=== PATIENT | male | born 1955 | race Caucasian/White ===

== ENCOUNTER 2020-11-01 10:00 | Inpatient (IN) | payer MEDICARE, OTHER, SELFPAY ==
[2020-11-01] VITALS (13 sets, daily range): BP systolic 111–175; BP diastolic 81–121; PULSE 81–137; RESP 16–20; TEMP 36.6–37.1; O2SAT 98–100; BMI 41.1
--- NOTE | ~2020-11-01 | XR_ITS ---
EXAMINATION: XR CHEST CLINICAL INFORMATION: Palpitations. COMPARISON: None TECHNIQUE: Frontal view of the chest was obtained. FINDINGS: No significant abnormality is noted involving the heart, lungs, mediastinum, bony thorax or soft tissues. XR/XR chest 1V IMPRESSION: Unremarkable chest examination.
--- NOTE | 2020-11-01 10:28 | ECG_ITS ---
Test Reason : SOB Blood Pressure : / mmHG Vent. Rate : 133 BPM Atrial Rate : 122 BPM P-R Int : 000 ms QRS Dur : 102 ms QT Int : 322 ms P-R-T Axes : 000 -56 121 degrees QTc Int : 479 ms Atrial fibrillation with rapid ventricular response Left anterior fascicular block Cannot rule out Anterior infarct , age undetermined Abnormal ECG When compared with ECG of 31-AUG-2013 09:20, Atrial fibrillation has replaced Sinus rhythm Vent. rate has increased BY 55 BPM Minimal criteria for Anterior infarct are now Present Non-specific change in ST segment in Lateral leads Referred By: Justine Jimenez Electronically Signed By:KENAN WAGNER
--- NOTE | 2020-11-01 10:35 | ED.ARRPALP ---
HPI - Arrhythmia/Palpitations General Chief Complaint: Arrhythmia/Palpitations Stated Complaint: FEELS FAST HEAR RATE ON EXERTION,PEDAL EDEMA Time Seen by Provider: 11/01/20 10:28 Source: patient and EMS Mode of arrival: EMS Limitations: no limitations History of Present Illness HPI narrative: 65 yo male with known DM, HTN, HPL not compliant with medications 3 months of intermittent palpitations, ESQUEDA, fatigue, LE swelling was told about a month ago at urgent care he was in afib never followed up, saw Dr. Turner today and sent in for evaluation MD complaint: rapid heart beat, heart racing and palpitations Onset (ago): month(s) (3) Duration: intermittent Severity: moderate Context: occurred during rest and occurred during exertion Associated symptoms: shortness of breath and other (LE swelling, weakness, fatigue) Related Data Home Medications Medication Instructions Recorded Confirmed cholecalciferol (vitamin D3) 25 25 mcg PO DAILY 11/01/20 11/01/20 mcg (1,000 unit) capsule lactobacillus combination no.9 4 4,000 mmu cells PO DAILY 11/01/20 11/01/20 billion cell capsule zliqmyutuzho-tiidyaob-kasmtz tablet 1 tab PO DAILY 11/01/20 11/01/20 psyllium husk 3.4 gram/5.4 gram 1 tbsp PO DAILY 11/01/20 11/01/20 oral powder Allergies Allergy/AdvReac Type Severity Reaction Status Date / Time No Known Allergies Allergy Unverified 04/08/20 14:40 [facility] [place] Past Medical History Medical History (Updated 11/01/20 @ 11:25 by Justine Jimenez DO) Erectile dysfunction Gallbladder polyp Gonorrhea Hypercholesterolemia Hypertension Obesity (BMI 30-39.9) Type 2 diabetes mellitus with hyperglycemia Vitamin D deficiency Surgical History History of tonsillectomy Social History Social History (Updated 11/01/20 @ 08:57 by Yomaira Estrada CMA) Alcohol intake: current Alcohol intake frequency: holidays/special occasions only Smoking Status: Never smoker Advance Directives: Yes Advance Directives Information Provided: No Advance Directives on File: No Physical Exam Vital Signs: Vital Signs: Last Vital Signs Temp 98 F 11/01/20 10:20 Pulse 115 H 11/01/20 11:09 Resp 17 11/01/20 11:09 BP 129/101 H 11/01/20 11:09 Pulse Ox 98 11/01/20 11:09 Body Mass Index 41.1 Appearance: Alert. Oriented X3. anxious, mild acute distress. Eyes: Pupils equal, round and reactive to light. ENT: Pharynx normal. Neck: Normal inspection. Neck supple. CVS: rapid irregular heart rate and rhythm. Pulses normal. Respiratory: No respiratory distress. Breath sounds normal. Abdomen: Soft and nontender. Skin: Skin warm and dry. Normal skin color. Normal skin turgor. Extremities: pos 1 to 2+ pitting lower extremity edema. No calf ttp Neuro: Oriented X 3. No motor deficit. No sensory deficit. Course Course Course Narrative: will start on mary gtt at this time plan to admit at this time, IV lasix and drip ordered HR up in 110s MDM - Arrhythmia/Palpitations MDM Narrative Medical decision making narrative: 65 yo male with known DM, HTN, HPL not compliant with medications 3 months of intermittent palpitations, ESQUEDA, fatigue, LE swelling was told about a month ago at urgent care he was in afib never followed up, saw Dr. Turner today and sent in for evaluation at this time will need labs, EKG, CXR - anticipate CHF from untreated afib over past 3 months - IV dilt and IV lasix orderd, planned admit, no CP to suggest PE Lab Data Result diagrams: 11/01/20 10:37 11/01/20 10:37 Labs: Lab Results 11/01/20 11/01/20 11/01/20 Range/Units 10:37 10:37 10:37 WBC 7.8 (4.8-10.8) X10*3/uL RBC 5.32 (4.60-5.80) X10*6/uL Hgb 14.6 (14.0-18.0) g/dl Hct 46.0 (42-52) % MCV 86.5 (80-98) fL MCH 27.4 (27.0-33.0) pg MCHC 31.7 (31.0-36.0) g/dl RDW 16.7 H (11.0-16.0) % Plt Count 258 (160-400) X10*3/uL MPV 10.2 (9.4-12.4) fL Immature Gran % (Auto) 0.3 (0.0-0.4) % Neut % (Auto) 65.2 (45-73) % Lymph % (Auto) 25.1 (20-40) % Sequoyah % (Auto) 7.5 (2-11) % Eos % (Auto) 1.3 (0-4) % Baso % (Auto) 0.6 (0-2) % Lymph # (Auto) 2.0 (1.2-4.9) X10*3/uL Sequoyah # (Auto) 0.6 (0.1-1.2) X10*3/uL Eos # (Auto) 0.1 (0.0-0.4) X10*3/uL Baso # (Auto) 0.1 (0.0-0.2) X10*3/uL Abs Immat Gran (auto) 0.02 (0.00-0.03) X10*3/uL Absolute Neuts (auto) 5.1 (2.0-8.3) X10*3/uL Absolute Nucleated RBC 0.000 (0.0-0.012) X10*3/uL Nucleated RBC % (auto) 0.0 (0.0-0.2) /100WBC PT 13.8 H (10.8-13.0) SEC INR 1.2 H (0.9-1.1) APTT 34.0 (24.1-38.0) SEC Sodium 139 (135-145) mmol/L Potassium 4.8 (3.3-5.1) mmol/L Chloride 102 (96-108) mmol/L Carbon Dioxide 24 (22-29) mmol/L Anion Gap 18 (12-20) BUN 24 H (9-16) mg/dL Creatinine 1.59 H (0.5-1.4) mg/dL Estim Creat Clear Calc 66.5 Estimated GFR 44 Random Glucose 145 H (60-115) mg/dL Calcium 9.6 (8.4-10.2) mg/dL Magnesium 2.0 (1.6-2.6) mg/dL Total Bilirubin 1.3 H (0.0-1.0) mg/dL Direct Bilirubin 0.7 H (0.0-0.5) mg/dL AST 32 (5-37) U/L ALT 25 (0-40) U/L Alkaline Phosphatase 84 (39-117) U/L Troponin I High Sens (<3.5-35.0) ng/L B-Natriuretic Peptide (<100) pg/mL Total Protein 7.3 (6.5-8.0) g/dL Albumin 4.4 (3.5-5.0) g/dL COVID-19 ([facility]) (Negative) COVID-19 Clin Com 11/01/20 11/01/20 11/01/20 Range/Units 10:37 10:37 10:37 WBC (4.8-10.8) X10*3/uL RBC (4.60-5.80) X10*6/uL Hgb (14.0-18.0) g/dl Hct (42-52) % MCV (80-98) fL MCH (27.0-33.0) pg MCHC (31.0-36.0) g/dl RDW (11.0-16.0) % Plt Count (160-400) X10*3/uL MPV (9.4-12.4) fL Immature Gran % (Auto) (0.0-0.4) % Neut % (Auto) (45-73) % Lymph % (Auto) (20-40) % Sequoyah % (Auto) (2-11) % Eos % (Auto) (0-4) % Baso % (Auto) (0-2) % Lymph # (Auto) (1.2-4.9) X10*3/uL Sequoyah # (Auto) (0.1-1.2) X10*3/uL Eos # (Auto) (0.0-0.4) X10*3/uL Baso # (Auto) (0.0-0.2) X10*3/uL Abs Immat Gran (auto) (0.00-0.03) X10*3/uL Absolute Neuts (auto) (2.0-8.3) X10*3/uL Absolute Nucleated RBC (0.0-0.012) X10*3/uL Nucleated RBC % (auto) (0.0-0.2) /100WBC PT (10.8-13.0) SEC INR (0.9-1.1) APTT (24.1-38.0) SEC Sodium (135-145) mmol/L Potassium (3.3-5.1) mmol/L Chloride (96-108) mmol/L Carbon Dioxide (22-29) mmol/L Anion Gap (12-20) BUN (9-16) mg/dL Creatinine (0.5-1.4) mg/dL Estim Creat Clear Calc Estimated GFR Random Glucose (60-115) mg/dL Calcium (8.4-10.2) mg/dL Magnesium (1.6-2.6) mg/dL Total Bilirubin (0.0-1.0) mg/dL Direct Bilirubin (0.0-0.5) mg/dL AST (5-37) U/L ALT (0-40) U/L Alkaline Phosphatase (39-117) U/L Troponin I High Sens 47.8 H (<3.5-35.0) ng/L B-Natriuretic Peptide 1417 H (<100) pg/mL Total Protein (6.5-8.0) g/dL Albumin (3.5-5.0) g/dL COVID-19 ([facility]) Negative (Negative) COVID-19 Clin Com See Note ECG Data Attestation: I personally reviewed and interpreted this ECG as follows: ECG interpretation date: 11/01/20 ECG interpretation time: 10:45 Interpretation: Rate: 133 Rhythm: afib with RVR [place]: left Normal P waves. Normal DRU. NSIVCD poor R wave progression ST T wave : nonspecific, no KEYONNA qTC: normal prior studies: changed from prior The study has been interpreted contemporaneously by me. . Critical Care Time Critical Care Time Critical Care Time: Yes Total Critical Care Time: 30 Attestation: IV diltiazem, diltiazem drip, IV lasix I attest to this time spent taking care of the patient Discharge Plan Discharge Clinical Impression: Acute renal insufficiency Atrial fibrillation Qualifiers: Atrial fibrillation type: unspecified Qualified Code(s): I48.91 - Unspecified atrial fibrillation CHF (congestive heart failure) Qualifiers: Heart failure type: unspecified Heart failure chronicity: unspecified Qualified Code(s): I50.9 - Heart failure, unspecified Patient Disposition: Admitted As Inpatient
[2020-11-01] MEDS: dilTIAZem HCL 50 MG/10 ML VIAL 10 MG IVPUSH (10:43)
[2020-11-01 10:44] LABS: MANUAL DIFF FLAG NO
[2020-11-01] MEDS: Furosemide 40 MG/4 ML VIAL IVPUSH ×2 (10:44→18:02)
[2020-11-01 10:45] LABS: Basophils Absolute Auto 0.1 X10*3/uL (0.0-0.2); Basophils Percent Auto 0.6 % (0-2); Eosinophils Absolute Auto 0.1 X10*3/uL (0.0-0.4); Eosinophils Percent Auto 1.3 % (0-4); Hemoglobin 14.6 g/dl (14.0-18.0); Imm Gran Abs Auto 0.02 X10*3/uL (0.00-0.03); Imm Gran Pct Auto 0.3 % (0.0-0.4); Lymphocytes Percent Auto 25.1 % (20-40); Mean Corpuscular HGB Conc 31.7 g/dl (31.0-36.0); Mean Corpuscular Hemoglobin 27.4 pg (27.0-33.0); Mean Corpuscular Volume 86.5 fL (80-98); Mean Platelet Volume 10.2 fL (9.4-12.4); Monocytes Absolute Auto 0.6 X10*3/uL (0.1-1.2); Monocytes Percent Auto 7.5 % (2-11); Neutrophils Absolute Auto 5.1 X10*3/uL (2.0-8.3); Neutrophils Percent Auto 65.2 % (45-73); Platelet Count 258 X10*3/uL (160-400); Red Blood Count 5.32 X10*6/uL (4.60-5.80); Red Cell Distribution Width 16.7 % (11.0-16.0); White Blood Count 7.8 X10*3/uL (4.8-10.8)
[2020-11-01 10:53] LABS: INTERNATIONAL NORM RATIO 1.2 (0.9-1.1); Prothrombin Time 13.8 SEC (10.8-13.0)
[2020-11-01 11:03] LABS: COVID-19 Test Negative (Negative)
[2020-11-01 11:12] LABS: Alanine Aminotransferase 25 U/L (0-40); Albumin Level 4.4 g/dL (3.5-5.0); Alkaline Phosphatase 84 U/L (39-117); Anion Gap 18 (12-20); Aspartate Amino Transferase 32 U/L (5-37); Bilirubin Direct 0.7 mg/dL (0.0-0.5); Bilirubin Total 1.3 mg/dL (0.0-1.0); Blood Urea Nitrogen 24 mg/dL (9-16); Calcium 9.6 mg/dL (8.4-10.2); Carbon Dioxide 24 mmol/L (22-29); Chloride 102 mmol/L (96-108); Creatinine Clr Calc Pharmacy 66.5; Estimated Glomerular Filt Rate 44; Glucose Random 145 mg/dL (60-115); Potassium 4.8 mmol/L (3.3-5.1); Sodium 139 mmol/L (135-145); Total Protein 7.3 g/dL (6.5-8.0)
[2020-11-01 11:17] LABS: B Type Natriuretic Peptide 1417 pg/mL (<100)
[2020-11-01 11:23] LABS: Troponin-I High Sensitivity 47.8 ng/L (<3.5-35.0)
[2020-11-01 11:32] LABS: Thyroid Stimulating Hormone 1.62 uIU/mL (0.32-4.0)
[2020-11-01] MEDS: dilTIAZem HCL 125 MG in 0.9 % Sodium Chloride 100 ML 10 MG IVCONT (11:33)
--- NOTE | 2020-11-01 14:11 | PM.EVENT ---
Event Note Date of Service: 11/01/20 Event Note: Patient seen and examined independently and I was present during cristina portion of E/M service. Agree with Jeremy Roldan NP's history, physical, assessment, and plan with the following additions and/or changes. This is a 65 yo M who reports that he was seen at an urgent care clinic in the last month for progressive shortness of breath. He reports that at that time he was diagnosed with new onset A. Fib and was told to f/u with his PCP. He reports that he never did that. It is unclear if he was prescribed any medications to manage his A. Fib during that urgent care visit. He now presents to the hospital with complaints of progressive shortness of breath, initially at exertion but now even with ambulating a few steps. He denies feeling any palpitations and he denies any chest pain. He reports 2-3 pillow orthopnea and significant lower extremity swelling which he now feels has increased to be belly. He reports more than a 50-60 lb weight gain over about 1 month. Upon arrival to the ED, he was noted to be in Rapid A. Fib with signs of acute CHF as well. His work up revealed an elevated BNP, elevated HS-trop-I, A. Fib with RVR. He was given IV cardizem and IV lasix with minimal improvement in his HR or dyspnea. He was started on IV cardizem drip and admission was requested for further work up and treatment of acute CHF and A. Fib with RVR. On exam Vitals - Bp 110/120 over 80s systolic, HR - 100 to 120s on max caridzem drip @ 15, RR 18 at rest, up to 24-26 with exertion, saturation 98% on RA Gen - respiratory distress after about 5 minutes of conversation, unable to lay supine CVS - S1S2, IRR - rates 100-120s; +JVD; Bilateral 3+ pitting edema; some edema of the adominal wall ntoed as well Respiratory - Rales throughout the lungs, respiratory distress with minimal exertion Ext - bilateral edema, 3+ A/P 65 yo M with no prior history of CHF, recently diagnosed A. Fib (about 1 month ago, unclear if taking any treatment) now presenting with signs and symptoms of acute CHF + Rapid A. Fib Unclear if his CHF tachycardia mediated vs not. continue cardizem gtt, continue iv lasix 40mg bid, echocardiogram and cardiology consults, will need OAC -- started on Eilquis 5mg BID DM reports not on any meds a1c 7.1 for now, will use sliding scale and possibly start oral pending how his renal function trends Elevated SCr Range on our EMG is 1.23-1.3; now 1.59. Possibly cardiorenal
--- NOTE | 2020-11-01 14:29 | HP_ITS ---
DATE OF SERVICE: 11/01/2020 CHIEF COMPLAINT: Shortness of breath. HISTORY OF PRESENT ILLNESS: A 65-year-old man, presented to the ER with complaints of worsening shortness of breath and swelling. He reports the shortness of breath started around July. He went to an urgent care clinic approximately a month ago and was told that he had atrial fibrillation. Unfortunately, the patient did not follow up with his primary care provider after that. He reported since then he has been developing more swelling to his lower extremities and having even more difficulty especially with climbing stairs and lying flat with shortness of breath. He denied chest pain, nausea, vomiting, or diarrhea. He reported a loss of appetite more recently. In the ER, chest x-ray noted no consolidation or effusion. BNP was elevated at 1417, troponin 47.8, TSH 1.62, creatinine 1.59, slightly elevated from baseline. Vital signs; his heart rate was up to 130s. Blood pressure stable. He was started on IV diltiazem drip, given a dose of IV Lasix. He will be admitted for further management and treatment of acute atrial fibrillation with rapid ventricular response and acute congestive heart failure. PAST MEDICAL HISTORY: 1. Hypertension. 2. Diabetes mellitus. 3. Hyperlipidemia. 4. Obesity. PAST SURGICAL HISTORY: Tonsillectomy. SOCIAL HISTORY: Denies any alcohol, tobacco, or illicit drugs. ALLERGIES: NO KNOWN ALLERGIES. MEDICATIONS: 1. Cholecalciferol 25 mcg p.o. daily. 2. Lactobacillus capsules daily. 3. Multivitamin 1 tab p.o. daily. 4. Metamucil 1 tablespoon p.o. daily. REVIEW OF SYSTEMS: CONSTITUTIONAL: Denies any recent fever, chills, or decrease in appetite. RESPIRATORY: See HPI. CARDIOVASCULAR: See HPI. GASTROINTESTINAL: Denies any dysphagia, abdominal pain, nausea, vomiting, or diarrhea. GENITOURINARY: Denies any dysuria, frequency, or hematuria. MUSCULOSKELETAL: Denies any joint pain or swelling. NEUROPSYCH: Denies any weakness or seizures. All other systems are reviewed and are negative. PHYSICAL EXAMINATION: CONSTITUTIONAL: Resting in bed, appearing in no acute distress. VITAL SIGNS: 98, 105, 19, 111/89, 99% on room air. SKIN: Intact without rash or open sores. HEENT: Head is normocephalic, atraumatic. Eyes, pupils are PERRLA. Sclerae anicteric. Mouth and Throat: Mucous membranes are intact and moist. NECK: Supple. No lymphadenopathy. No JVD noted. CHEST: Rales. HEART: Irregularly irregular. ABDOMEN: Obese. Positive bowel sounds. Soft, nontender. No hepatomegaly or splenomegaly noted. NEURO: The patient is alert and oriented x3. Cranial nerves II through XII are grossly intact without focal deficits. LABORATORY DATA: WBC 7.8, hemoglobin 14.6, hematocrit 46.0, platelets 258. Sodium 139, potassium 4.8, chloride is 102, bicarb is 24, BUN is 24, creatinine is 1.59, glucose is 145. Hemoglobin A1c is 7.1, total bilirubin 1.3, direct bilirubin 0.7. Troponin 47.8. BNP 1417. TSH 1.62. ASSESSMENT AND PLAN: A 65-year-old man, who is being admitted with acute congestive heart failure secondary to atrial fibrillation with rapid ventricular response. The patient has reported symptoms worsening over the last 2 months. He reported that he went to see the urgent care clinic approximately a month ago, but did not follow up with his primary care provider. 1. Atrial fibrillation with rapid ventricular response. Likely has been ongoing for a few months with the patient's symptoms of shortness of breath. Not currently on any medication. a. Cardiology consultation. b. Echocardiogram. c. Continue Cardizem drip for now, EKG once the patient converts and then place the patient on oral calcium channel rfafaele. d. We will add anticoagulation. 2. Acute congestive heart failure. No history of heart failure in the past. No signs of hypoxia at this time. a. IV Lasix. b. Echocardiogram. c. Daily weights, intake and output. 3. Diabetes mellitus, sliding scale, ADA diet. 4. Obesity. BMI of 41.1. 5. Hypertension. Elevated blood pressure. Monitor closely. 6. Acute kidney injury, likely related to congestion. a. Diurese. 7. Deep vein thrombosis prophylaxis with Eliquis. CAREN Nolasco MD JR/LYNETTE / [id number] Atttending Attestation: Patient seen and examined independently and I was present during cristina portion of E/M service. Agree with Jeremy Roldan NP's history, physical, assessment, and plan with the following additions / changes (see separate event note for full details). Clincially volume overloaded with persisent dyspnea with min exertion. Still has JVD and bilater LE edema 3+ going up to abdominal wall. Will need IV diuretics and IV cardizem gtt for rate control. Echo + Cardiology consultation. MTDD
--- NOTE | 2020-11-01 15:32 | PC.NURSE ---
Pt resting in bed, reports slight SOB but appears comfortable and spo2 WNL. Pt requested and given fluids, vss. Pending bed assignment, pt aware and agreeable to plan of care.
[2020-11-01 15:34] LABS: Troponin-I High Sensitivity 51.6 ng/L (<3.5-35.0)
[2020-11-01] MEDS: Apixaban 5 MG TABLET PO (21:16)
[2020-11-01 21:22] LABS: Glucose, Whole Blood 135 mg/dL (60-115)
--- NOTE | 2020-11-01 21:43 | MHC.CM.PN ---
CM met with pt. A&O x3. Pt well kept. 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 Pt states he loves being a social work instructor. Pt admits to not being the most compliant medication person, but agrees he must start taking better care of himself. Pt admits to poor eating habits and loves fast food. CM mentioned that he consider one of the home meal planning companies, as they generally provide all you need for meals, proper portions and easy preparation. Pt lives alone and has no services. Pt does not have a HCP. CM explained the reasons for completing a HCP, but pt refuses at this time. Pt primary contact is his sister, Leela ([phone]). D/C plan is home without services. Transportation by family. Pt to arrange. CM will follow for d/c needs.
[2020-11-02] VITALS (12 sets, daily range): BP systolic 118–160; BP diastolic 59–102; PULSE 85–133; RESP 16–26; TEMP 36.4–37.1; O2SAT 95–98
--- NOTE | 2020-11-02 | ECG_ITS ---
Test Reason : ARRHYTHMIA Blood Pressure : / mmHG Vent. Rate : 115 BPM Atrial Rate : 061 BPM P-R Int : 000 ms QRS Dur : 104 ms QT Int : 356 ms P-R-T Axes : 000 -67 125 degrees QTc Int : 492 ms Atrial fibrillation with rapid ventricular response Left axis deviation Low voltage QRS Cannot rule out Anterior infarct (cited on or before 01-NOV-2020) Abnormal ECG When compared with ECG of 01-NOV-2020 10:16, No significant change was found Referred By: Rashmi Roldan Electronically Signed By:KENAN WAGNER
[2020-11-02] MEDS: 0.9 % Sodium Chloride Flush 3 ML SYRINGE IVFLUSH ×2 (01:07→22:56)
[2020-11-02 07:23] LABS: MANUAL DIFF FLAG NO
[2020-11-02 07:27] LABS: Basophils Percent Auto 0.7 % (0-2); Eosinophils Absolute Auto 0.2 X10*3/uL (0.0-0.4); Eosinophils Percent Auto 3.6 % (0-4); Hematocrit 40.2 % (42-52); Hemoglobin 12.9 g/dl (14.0-18.0); Lymphocytes Absolute Auto 1.5 X10*3/uL (1.2-4.9); Lymphocytes Percent Auto 27.7 % (20-40); Mean Corpuscular HGB Conc 32.1 g/dl (31.0-36.0); Mean Corpuscular Hemoglobin 27.6 pg (27.0-33.0); Mean Corpuscular Volume 86.1 fL (80-98); Mean Platelet Volume 10.4 fL (9.4-12.4); Monocytes Absolute Auto 0.5 X10*3/uL (0.1-1.2); Monocytes Percent Auto 10.1 % (2-11); Neutrophils Absolute Auto 3.1 X10*3/uL (2.0-8.3); Neutrophils Percent Auto 57.9 % (45-73); Platelet Count 198 X10*3/uL (160-400); Red Blood Count 4.67 X10*6/uL (4.60-5.80); Red Cell Distribution Width 16.7 % (11.0-16.0); White Blood Count 5.4 X10*3/uL (4.8-10.8)
[2020-11-02 07:53] LABS: Anion Gap 13 (12-20); Blood Urea Nitrogen 22 mg/dL (9-16); Carbon Dioxide 28 mmol/L (22-29); Chloride 104 mmol/L (96-108); Creatinine Clr Calc Pharmacy 78.9; Estimated Glomerular Filt Rate 53; Glucose Random 99 mg/dL (60-115); Potassium 4.7 mmol/L (3.3-5.1); Sodium 140 mmol/L (135-145)
[2020-11-02 07:57] LABS: B Type Natriuretic Peptide 1086 pg/mL (<100)
[2020-11-02 08:00] LABS: Calcium 8.8 mg/dL (8.4-10.2)
[2020-11-02 08:11] LABS: Glucose, Whole Blood 92 mg/dL (60-115)
[2020-11-02] MEDS: Apixaban 5 MG TABLET PO ×2 (09:10→22:53)
[2020-11-02] MEDS: Furosemide 40 MG/4 ML VIAL IVPUSH (09:10)
[2020-11-02] MEDS: Cholecalciferol (Vitamin D3) 25 MCG TABLET PO (09:10)
--- NOTE | 2020-11-02 09:44 | PM.CNCAR ---
History of Present Illness History of Present Illness Date of Service: 11/02/20 Consult reason: atrial fibrillation Chief complaint: CHF, afib rvr Narrative: This is a cardiology consultation regarding atrial fibrillation congestive heart failure. Patient states that he has a history of hypertension and diabetes but in the last year or so, he has really not take any medications. Over the last couple of months, he has been having increasing shortness of breath and leg swelling and he was seen by his PCP few weeks ago. At that point in time, atrial fibrillation was detected but patient did not follow-up. He was in fact advised to go to the ER but patient did not do so. But as the symptoms progressed, he is now admitted. Additionally, he has also gained almost 50 lb in weight. He has been noted to have atrial fibrillation with rapid rates. Denies any prior history of the same. No known coronary disease or myocardial infarction. Denies any history of alcohol excess. Mother has a pacemaker but denies any other cardiac issues in family. Review of Systems Review of Systems: Yes all other systems are reviewed and are negative Cardiovascular: Cardiovascular: Reports as per HPI, Reports no additional cardiovascular complaints, Reports Abdominal Distension, Denies acrocyanosis, Denies cool extremities, Denies painful fingertips, Denies chest pain, Denies chest pain at rest, Denies diaphoresis, Denies syncope, Reports pedal edema, Denies irregular heart rhythm, Denies claudication, Denies leg edema, Denies lightheadedness, Denies palpitations and Reports dyspnea Respiratory: Respiratory: Reports dyspnea Neurologic: Denies syncope Endocrine: Endocrine: Denies palpitations [facility] Past Medical History Medical History (Updated 11/02/20 @ 09:50 by Sergio Escalante MD) Erectile dysfunction Gallbladder polyp Gonorrhea Hypercholesterolemia Hypertension Obesity (BMI 30-39.9) Type 2 diabetes mellitus with hyperglycemia Vitamin D deficiency Family History Pertinent family history: Mother as pacemaker. Surgical History Surgical History History of tonsillectomy Social History Social History (Updated 11/01/20 @ 08:57 by Yomaira Estrada CMA) Alcohol intake: never Smoking Status: Unknown if ever smoked Use of substances other than those prescribed or required for medical reasons: Unknown Advance Directives: Yes Advance Directives Information Provided: No Advance Directives on File: No service: No Current occupational status: employed Meds Allergies Allergy/AdvReac Type Severity Reaction Status Date / Time No Known Allergies Allergy Unverified 04/08/20 14:40 Active Medications: Current Medications Generic Name Dose Route Start Last Admin Trade Name Freq PRN Reason Stop Dose Admin Acetaminophen 650 mg 11/01/20 13:29 Acetaminophen 325 Mg Tablet PO Q6H PRN Pain, Mild (Pain Scale 1-3) Apixaban 5 mg 11/01/20 21:00 11/02/20 09:10 Apixaban 5 Mg Tablet PO 5 mg BID RAMYA Administration Furosemide 40 mg 11/01/20 18:00 11/02/20 09:10 Furosemide 40 Mg/4 Ml Vial IVPUSH 40 mg BID@0900,1800 [facility] Administration Protocol Diltiazem HCl 125 mg/ Sodium 125 mls @ 0 mls/hr 11/01/20 11:15 11/01/20 18:02 Chloride IVCONT 0 mg/hr .Q0M RAMYA 0 mls/hr Titration Protocol Per Protocol Insulin Human Lispro 0 unit 11/01/20 16:30 11/02/20 08:25 Insulin Lispro 100 Unit/Ml 3 Ml Vial SUBCUT Not Given QIDACHS [facility] Protocol Multivitamins/Minerals 1 tab 11/02/20 09:00 11/02/20 09:10 Multivitamin With Minerals Tablet PO 1 tab DAILY RAMYA Administration Ondansetron HCl 4 mg 11/01/20 13:29 Ondansetron Hcl 4 Mg/2 Ml Vial IVPUSH Q8H PRN Nausea and Vomiting Pharmacy Consult 1 each 11/01/20 10:28 Consult Rx Perform Med Rec MISCELLANE ONCE PRN Consult order Sodium Chloride 3 ml 11/01/20 16:00 11/02/20 08:25 0.9 % Sodium Chloride Flush 3 Ml Syringe IVFLUSH Not Given QSHIFT [facility] Vitamin D 25 mcg 11/02/20 09:00 11/02/20 09:10 Cholecalciferol (Vitamin D3) 25 Mcg Tablet PO 25 mcg DAILY RAMYA Administration Home Medications Medication Instructions Recorded Confirmed Last Taken Type cholecalciferol (vitamin D3) 25 25 mcg PO DAILY 11/01/20 11/01/20 10/31/20 History mcg (1,000 unit) capsule lactobacillus combination no.9 4 4,000 mmu cells PO DAILY 11/01/20 11/01/20 10/31/20 History billion cell capsule gomomthbyutl-ggkemqta-tvwjsh tablet 1 tab PO DAILY 11/01/20 11/01/20 10/31/20 History psyllium husk 3.4 gram/5.4 gram 1 tbsp PO DAILY 11/01/20 11/01/20 10/31/20 History oral powder Physical Exam Vital Signs: Vital Signs: Last Vital Signs Temp 97.5 F 11/02/20 08:52 Pulse 95 11/02/20 04:00 Resp 26 H 11/02/20 08:52 BP 118/67 11/02/20 04:00 Pulse Ox 96 11/02/20 08:52 Body Mass Index 41.1 Const: General: cooperative, comfortable and no acute distress Orientation/consciousness: patient oriented x3 HENMT: Other: Unremarkable Neck: Neck: Yes normal visual inspection Chest: Chest palpation & inspection: normal inspection of the chest Resp: Auscultation: clear to auscultation bilaterally, no crackles and no wheezes Cardio: Jugular venous distension: no JVD Palpation: normal PMI Heart sounds: S1 normal heart sound present, S2 normal heart sound present, no gallops, no murmurs and no rubs GI: Palpation (GI): Soft to palpation and Ascites present Back/Spine/Pelvis: Other: unremarkable Skin: General skin exam: no rashes or lesions noted Neuro: General: patient oriented x3 Extrem: General: Yes edema (2+ edema) Psych: Mental Status: mental status grossly normal Results Labs and Meds Result diagrams: 11/02/20 07:05 11/02/20 07:05 Lab results: Laboratory Results - last 24 hr 11/01/20 11/01/20 11/01/20 10:37 10:37 10:37 WBC 7.8 RBC 5.32 Hgb 14.6 Hct 46.0 MCV 86.5 MCH 27.4 MCHC 31.7 RDW 16.7 H Plt Count 258 MPV 10.2 Immature Gran % (Auto) 0.3 Neut % (Auto) 65.2 Lymph % (Auto) 25.1 Benzie % (Auto) 7.5 Eos % (Auto) 1.3 Baso % (Auto) 0.6 Lymph # (Auto) 2.0 Benzie # (Auto) 0.6 Eos # (Auto) 0.1 Baso # (Auto) 0.1 Abs Immat Gran (auto) 0.02 Absolute Neuts (auto) 5.1 Absolute Nucleated RBC 0.000 Nucleated RBC % (auto) 0.0 PT 13.8 H INR 1.2 H APTT 34.0 Sodium 139 Potassium 4.8 Chloride 102 Carbon Dioxide 24 Anion Gap 18 BUN 24 H Creatinine 1.59 H Estim Creat Clear Calc 66.5 Estimated GFR 44 POC Glucose Random Glucose 145 H Calcium 9.6 Magnesium 2.0 Total Bilirubin 1.3 H Direct Bilirubin 0.7 H AST 32 ALT 25 Alkaline Phosphatase 84 Troponin I High Sens B-Natriuretic Peptide Total Protein 7.3 Albumin 4.4 TSH COVID-19 ([facility]) COVID-19 Clin Com 11/01/20 11/01/20 11/01/20 10:37 10:37 10:37 WBC RBC Hgb Hct MCV MCH MCHC RDW Plt Count MPV Immature Gran % (Auto) Neut % (Auto) Lymph % (Auto) Benzie % (Auto) Eos % (Auto) Baso % (Auto) Lymph # (Auto) Benzie # (Auto) Eos # (Auto) Baso # (Auto) Abs Immat Gran (auto) Absolute Neuts (auto) Absolute Nucleated RBC Nucleated RBC % (auto) PT INR APTT Sodium Potassium Chloride Carbon Dioxide Anion Gap BUN Creatinine Estim Creat Clear Calc Estimated GFR POC Glucose Random Glucose Calcium Magnesium Total Bilirubin Direct Bilirubin AST ALT Alkaline Phosphatase Troponin I High Sens 47.8 H B-Natriuretic Peptide 1417 H Total Protein Albumin TSH COVID-19 ([facility]) Negative COVID-19 [place] Com See Note 11/01/20 11/01/20 11/01/20 10:37 14:53 21:15 WBC RBC Hgb Hct MCV MCH MCHC RDW Plt Count MPV Immature Gran % (Auto) Neut % (Auto) Lymph % (Auto) Benzie % (Auto) Eos % (Auto) Baso % (Auto) Lymph # (Auto) Benzie # (Auto) Eos # (Auto) Baso # (Auto) Abs Immat Gran (auto) Absolute Neuts (auto) Absolute Nucleated RBC Nucleated RBC % (auto) PT INR APTT Sodium Potassium Chloride Carbon Dioxide Anion Gap BUN Creatinine Estim Creat Clear Calc Estimated GFR POC Glucose 135 H Random Glucose Calcium Magnesium Total Bilirubin Direct Bilirubin AST ALT Alkaline Phosphatase Troponin I High Sens 51.6 H B-Natriuretic Peptide Total Protein Albumin TSH 1.62 COVID-19 ([facility]) COVID-19 Clin Com 11/02/20 11/02/20 11/02/20 07:05 07:05 07:05 WBC 5.4 RBC 4.67 Hgb 12.9 L Hct 40.2 L MCV 86.1 MCH 27.6 MCHC 32.1 RDW 16.7 H Plt Count 198 MPV 10.4 Immature Gran % (Auto) 0.0 Neut % (Auto) 57.9 Lymph % (Auto) 27.7 Benzie % (Auto) 10.1 Eos % (Auto) 3.6 Baso % (Auto) 0.7 Lymph # (Auto) 1.5 Benzie # (Auto) 0.5 Eos # (Auto) 0.2 Baso # (Auto) 0.0 Abs Immat Gran (auto) 0.00 Absolute Neuts (auto) 3.1 Absolute Nucleated RBC 0.000 Nucleated RBC % (auto) 0.0 PT INR APTT Sodium 140 Potassium 4.7 Chloride 104 Carbon Dioxide 28 Anion Gap 13 BUN 22 H Creatinine 1.34 Estim Creat Clear Calc 78.9 Estimated GFR 53 POC Glucose Random Glucose 99 Calcium 8.8 D Magnesium Total Bilirubin Direct Bilirubin AST ALT Alkaline Phosphatase Troponin I High Sens B-Natriuretic Peptide 1086 H Total Protein Albumin TSH COVID-19 ([facility]) COVID-19 Clin Com 11/02/20 08:07 WBC RBC Hgb Hct MCV MCH MCHC RDW Plt Count MPV Immature Gran % (Auto) Neut % (Auto) Lymph % (Auto) Benzie % (Auto) Eos % (Auto) Baso % (Auto) Lymph # (Auto) Benzie # (Auto) Eos # (Auto) Baso # (Auto) Abs Immat Gran (auto) Absolute Neuts (auto) Absolute Nucleated RBC Nucleated RBC % (auto) PT INR APTT Sodium Potassium Chloride Carbon Dioxide Anion Gap BUN Creatinine Estim Creat Clear Calc Estimated GFR POC Glucose 92 Random Glucose Calcium Magnesium Total Bilirubin Direct Bilirubin AST ALT Alkaline Phosphatase Troponin I High Sens B-Natriuretic Peptide Total Protein Albumin TSH COVID-19 ([facility]) COVID-19 Clin Com ECG Attestation: I personally reviewed and interpreted this ECG as follows: Interpretation: Admission EKG with atrial fibrillation at 133/Min; left anterior fascicular block and cannot exclude old anterior infarct. Imaging Radiologist's impression: Impressions Chest X-Ray 11/01/20 10:29 IMPRESSION: Unremarkable chest examination. Assessment and Plan (1) Atrial fibrillation with rapid ventricular response: Status: Acute (2) Acute congestive heart failure: Qualifiers: Heart failure type: unspecified Qualified Code(s): I50.9 - Heart failure, unspecified Status: Acute Atrial fibrillation of unknown duration. Clinically, he is in congestive heart failure. Cardiac BNP is elevated at 1417. High sensitivity troponins are 47 and 51. Continue his IV diuretics. We can start him on some beta-blockers for rate control. Continue Eliquis. Echocardiogram to be completed. He may need a XIAO/cardioversion. We will follow with you.
--- NOTE | 2020-11-02 09:51 | PC.NURSE ---
pt ate breakfast, took morning meds. dr tang at bedside to consult on pt case. no insulin coverage indicated prior to breakfast, pt very pleasant, inquisitive about plan of care. awaiting inpt bed assign.
--- NOTE | 2020-11-02 10:40 | P.PNIM_ITS ---
Subjective Subjective Date of Service: 11/02/20 <Rashmi Roldan NP - Last Filed: 11/02/20 13:31> 11/02/20 <Reggie Valles MD - Last Filed: 11/02/20 16:19> Interval History: Follow up CHF and Afib RVR. Feels better with breathing and swelling going down <Rashmi Roldan NP - Last Filed: 11/02/20 13:31> Physical Exam Vital Signs: Vital Signs: Last Vital Signs Temp 97.5 F 11/02/20 08:52 Pulse 95 11/02/20 04:00 Resp 26 H 11/02/20 08:52 BP 118/67 11/02/20 04:00 Pulse Ox 96 11/02/20 08:52 Body Mass Index 41.1 <Rashmi Roldan NP - Last Filed: 11/02/20 13:31> Appearing in no acute distress lung sounds clear heart IRIR positive bowel sounds, abdomen is soft, nontender neuro patient is alert x3, no focal deficits <Rashmi Roldan NP - Last Filed: 11/02/20 13:31> Objective Data Current Medications Generic Name Dose Route Start Last Admin Trade Name Freq PRN Reason Stop Dose Admin Acetaminophen 650 mg 11/01/20 13:29 Acetaminophen 325 Mg Tablet PO Q6H PRN Pain, Mild (Pain Scale 1-3) Apixaban 5 mg 11/01/20 21:00 11/02/20 09:10 Apixaban 5 Mg Tablet PO 5 mg BID RAMYA Administration Furosemide 60 mg 11/02/20 15:00 Furosemide 40 Mg/4 Ml Vial IVPUSH TID [facility] Protocol Diltiazem HCl 125 mg/ Sodium 125 mls @ 0 mls/hr 11/01/20 11:15 11/01/20 18:02 Chloride IVCONT 0 mg/hr .Q0M RAMYA 0 mls/hr Titration Protocol Per Protocol Insulin Human Lispro 0 unit 11/01/20 16:30 11/02/20 08:25 Insulin Lispro 100 Unit/Ml 3 Ml Vial SUBCUT Not Given QIDACHS [facility] Protocol Metoprolol Succinate 50 mg 11/02/20 10:40 Metoprolol Succinate Er 50 Mg Tab.Er.24h PO DAILY [facility] Protocol Multivitamins/Minerals 1 tab 11/02/20 09:00 11/02/20 09:10 Multivitamin With Minerals Tablet PO 1 tab DAILY RAMYA Administration Ondansetron HCl 4 mg 11/01/20 13:29 Ondansetron Hcl 4 Mg/2 Ml Vial IVPUSH Q8H PRN Nausea and Vomiting Pharmacy Consult 1 each 11/01/20 10:28 Consult Rx Perform Med Rec MISCELLANE ONCE PRN Consult order Sodium Chloride 3 ml 11/01/20 16:00 11/02/20 08:25 0.9 % Sodium Chloride Flush 3 Ml Syringe IVFLUSH Not Given QSHIFT [facility] Vitamin D 25 mcg 11/02/20 09:00 11/02/20 09:10 Cholecalciferol (Vitamin D3) 25 Mcg Tablet PO 25 mcg DAILY RAMYA Administration <Rashmi Roldan NP - Last Filed: 11/02/20 13:31> Labs CBC & Chem 7: : 11/02/20 07:05 11/02/20 07:05 <Rashmi Roldan NP - Last Filed: 11/02/20 13:31> Assessment and Plan (1) Acute congestive heart failure: Status: Acute <Rashmi Roldan NP - Last Filed: 11/02/20 13:31> (2) Atrial fibrillation with rapid ventricular response: Status: Acute <Rashmi Roldan NP - Last Filed: 11/02/20 13:31> Assessment and Plan: 65-year-old man, who is being admitted with acute congestive heart failure secondary to atrial fibrillation with rapid ventricular response. The patient has reported symptoms worsening over the last 2 months. He reported that he went to see the urgent care clinic approximately a month ago, but did not follow up with his primary care provider. Atrial fibrillation with rapid ventricular response. Likely has been ongoing for a few months with the patient's symptoms of shortness of breath. Not currently on any medication. Heart rate still up -Continue cardizem drip -Cardiology following -Echocardiogram. -Add Toprol XL -Eliquis Acute congestive heart failure. No history of heart failure in the past. 50 lb weight gain. No signs of hypoxia at this time. -IV Lasix increased to 60mg TID -Echocardiogram. -Daily weights, intake and output. Diabetes mellitus. -sliding scale, ADA diet. Obesity. BMI of 41.1. Hypertension. Elevated blood pressure. Monitor closely. Acute kidney injury, likely related to congestion. -Ismael Attending: Dr. Valles <Rashmi Roldan NP - Last Filed: 11/02/20 13:31> Attending Attestation: Patient seen and examined independently and I was present during cristina portion of E/M service. Agree with Jeremy Roldan NP's history, physical, assessment, and plan. Remains in CHF with significant fluid overload, is slowly improving. HR remains problematic. Transitioned from cardizem gtt to oral metoprolol but HR bounced back up. D/w Cardiology -- will increase metoprolol to 25mg q6 hours and digoixin load, discontinue cardizem gtt. Will need XIAO cardioversion tomorrow AM. NPO after midnight. Echo results pending today. <Reggie Valles MD - Last Filed: 11/02/20 16:19>
[2020-11-02] MEDS: Metoprolol Succinate ER 50 MG TAB.ER.24H PO (11:48)
[2020-11-02] MEDS: dilTIAZem HCL 125 MG in 0.9 % Sodium Chloride 100 ML 10 MG IVCONT (11:56)
--- NOTE | 2020-11-02 13:36 | CA_ITS ---
Transthoracic Echocardiogram Patient (Last, First, Middle): Vishnu Gr A Gender: Male Date of : 1955 Age: 65 Procedure Date: 11/02/2020 Procedure Type: Transthoracic Echocardiogram Location: ER Height: 182.88 cm Weight: 137.44 kg BSA: 2.54 m2 Heart Rate: bpm BP: 118 / 67 mmHg Yoker: Referring MD: Rashmi Roldan NP Symptoms: new chf, afib rvr Study Quality: Fair ECG Rhythm: Atrial Fibrillation Conclusions: - The left ventricular systolic function is severely decreased. The visually estimated ejection fraction is between 10-15%. - Severe biatrial enlargement. - There is mild mitral valve regurgitation. - There is moderate to severe tricuspid valve regurgitation. - Moderate pulmonary hypertension is present. - There is mild dilatation of the ascending aorta measuring 4.20 cm. Findings Left Ventricle Moderately increased left ventricular cavity size. There is mildly increased left ventricular wall thickness. The left ventricular systolic function is severely decreased. The visually estimated ejection fraction is between 10 15%. There is severe global hypokinesis. Diastolic function is indeterminate on the basis of available data. Right Ventricle Normal right ventricular cavity size and systolic function. Atria Severe biatrial enlargement. Aortic Valve The aortic valve was not well visualized. There is no aortic valve stenosis. There is no aortic valve regurgitation. Mitral Valve The mitral valve appears normal. There is mild mitral valve regurgitation. There is no mitral valve stenosis. Pulmonic Valve The pulmonic valve was not well visualized. Tricuspid Valve Normal tricuspid valve structure. There is moderate to severe tricuspid valve regurgitation. Moderate pulmonary hypertension is present. Great Vessels There is mild dilatation of the ascending aorta measuring 4.20 cm. Venous The inferior vena cava is dilated and collapses less than 50% with inspiration. Pericardium/Pleural There is a small loculated pericardial effusion overlying the right atrium. Prior Study Comparison No prior study available for comparison. Measurements 2D Linear Measurements IVSd: 1.34 0.6-0.9/0.6-1.0 cm LVIDd: 6.34 3.9-5.3/4.2-5.9 cm LVIDd Index: 2.50 2.4-3.2/2.2-3.1 cm/m2 LVIDs: 5.33 2.0-3.6 cm LVPWd: 1.26 0.7-1.1 cm Ao Root: 3.50 2.1-3.5 cm LA Diam: 5.30 2.7-3.8/3.0-4.0 cm LAIDs Index: 2.09 1.5-2.3 cm/m2 LV Mass: 478.06 67-162/88-224 g LV Mass Index: 188.21 43-95/49-115 g/m2 LVOT Diam: 2.20 3.0+(-)1.3 cm 2D Systolic Function EF 4C: 29.40 >55% EF 2C: 11.80 >55% EF BiP: 21.30 >55% Mitral Valve MV Pk E: 0.84 MV Decel Time: 187.00 E'Lateral: 9.86 E'Medial: 5.42 E/E' Med: 15.50 E/E' Lat: 8.50 PHT: 55.00 MVA PHT: 4.00 Decel Whitley: 4.50 Aortic Valve AoV Pk Raulito: 1.06 AoV Mn Raulito: 0.68 AoV VTI: 0.21 AoV Pk Grad: 4.00 Aov Mn Grad: 2.00 EL Cont.VTI: 2.38 LVOT LVOT Pk Raulito: 0.76 LVOT Mn Raulito: 0.50 LVOT VTI: 0.13 LVOT Pk Grad: 2.00 LVOT Mn Grad: 1.00 LVOT Diam: 2.20 LVOT Area: 3.80 Diastolic Function MV Pk E: 0.84 E'Medial: 5.42 E/E' Med: 15.50 E' Laterial: 9.86 E/E' Lat: 8.50 Tricuspid Valve TR Pk Raulito: 2.98 TR Pk Grad: 36.00 RA Press: 15.00 RVSP: 51.00 Great Vessels Aorta Ao Root-2D: 3.50 2.0-3.7 cm Ao Asc: 4.20 2.1-3.4 cm Pulmonary Valve PV Pk Raulito: 0.65 Peak PV Grad: 2.00 Updated in Other Vendor System with Status of Final Sergio Escalante MD electronically signed on 11/02/2020 5:06:53 PM with status of Final
[2020-11-02] MEDS: Furosemide 40 MG/4 ML VIAL 60 MG IVPUSH ×2 (15:08→22:53)
[2020-11-02 15:15] LABS: Glucose, Whole Blood 139 mg/dL (60-115)
[2020-11-02] MEDS: Digoxin 0.5 MG/2 ML AMPUL 0.25 MG IVPUSH ×2 (16:38→22:54)
--- NOTE | 2020-11-02 16:40 | PC.NURSE ---
pt dc'd from [facility],meds changed. echo completed at bedside. dr mcguire at bedside to update on plan of care.
[2020-11-02 16:46] LABS: Glucose, Whole Blood 147 mg/dL (60-115)
--- NOTE | 2020-11-02 19:17 | PC.NURSE ---
called to the floor to give report,the RN Lida will call back
[2020-11-02] MEDS: Metoprolol Tartrate 25 MG TABLET PO (20:43)
--- NOTE | 2020-11-02 20:44 | PC.NURSE ---
report was given to hilario, patient was medicated witth lopressor PO and the patient is being transported up with haseeb MILLARD
[2020-11-02 21:23] LABS: Glucose, Whole Blood 133 mg/dL (60-115)
[2020-11-03] VITALS (8 sets, daily range): BP systolic 110–132; BP diastolic 77–88; PULSE 80–90; RESP 16–18; TEMP 36.3–36.7; O2SAT 95–99
--- NOTE | 2020-11-03 | ECG_ITS ---
Test Reason : AFIB Blood Pressure : / mmHG Vent. Rate : 090 BPM Atrial Rate : 086 BPM P-R Int : 000 ms QRS Dur : 104 ms QT Int : 382 ms P-R-T Axes : 000 -64 145 degrees QTc Int : 467 ms Atrial fibrillation Left anterior fascicular block Cannot rule out Anterior infarct (cited on or before 01-NOV-2020) T wave abnormality, consider lateral ischemia Abnormal ECG When compared with ECG of 02-NOV-2020 08:49, No significant changes seen Referred By: Rashmi Roldan Electronically Signed By:KENAN WAGNER
[2020-11-03 04:46] LABS: MANUAL DIFF FLAG NO
[2020-11-03 04:50] LABS: Basophils Percent Auto 0.5 % (0-2); Eosinophils Absolute Auto 0.2 X10*3/uL (0.0-0.4); Eosinophils Percent Auto 3.9 % (0-4); Hematocrit 41.1 % (42-52); Hemoglobin 13.1 g/dl (14.0-18.0); Imm Gran Abs Auto 0.01 X10*3/uL (0.00-0.03); Imm Gran Pct Auto 0.2 % (0.0-0.4); Lymphocytes Absolute Auto 1.8 X10*3/uL (1.2-4.9); Lymphocytes Percent Auto 30.5 % (20-40); Mean Corpuscular HGB Conc 31.9 g/dl (31.0-36.0); Mean Corpuscular Hemoglobin 27.6 pg (27.0-33.0); Mean Corpuscular Volume 86.5 fL (80-98); Mean Platelet Volume 10.6 fL (9.4-12.4); Monocytes Absolute Auto 0.6 X10*3/uL (0.1-1.2); Monocytes Percent Auto 10.3 % (2-11); Neutrophils Absolute Auto 3.2 X10*3/uL (2.0-8.3); Neutrophils Percent Auto 54.6 % (45-73); Platelet Count 202 X10*3/uL (160-400); Red Blood Count 4.75 X10*6/uL (4.60-5.80); Red Cell Distribution Width 16.5 % (11.0-16.0); White Blood Count 5.9 X10*3/uL (4.8-10.8)
[2020-11-03] MEDS: Digoxin 0.5 MG/2 ML AMPUL 0.25 MG IVPUSH (05:23)
[2020-11-03 05:30] LABS: Anion Gap 12 (12-20); Blood Urea Nitrogen 22 mg/dL (9-16); Calcium 9.1 mg/dL (8.4-10.2); Carbon Dioxide 31 mmol/L (22-29); Chloride 100 mmol/L (96-108); Creatinine Clr Calc Pharmacy 80.1; Estimated Glomerular Filt Rate 54; Glucose Random 107 mg/dL (60-115); Potassium 4.2 mmol/L (3.3-5.1); Sodium 139 mmol/L (135-145)
[2020-11-03 05:34] LABS: B Type Natriuretic Peptide 1494 pg/mL (<100)
[2020-11-03] MEDS: Metoprolol Tartrate 25 MG TABLET PO ×3 (06:14→18:42)
[2020-11-03 07:24] LABS: Glucose, Whole Blood 89 mg/dL (60-115)
--- NOTE | 2020-11-03 08:46 | P.CDIC_ITS ---
CDI Concurrent Query Service Date: 11/03/20 Documentation Clarification: Please clarify if you are treating a proba ble/suspected/likely or confirmed: Acute diastolic and/or systolic CHF Please specify if known Acute HFrEF Provider Response: Other Other Diagnosis: Acute HFrEF PLEASE DO NOT DELETE/MODIFY EXISTING CONTENT Additional information is needed in order to code to the highest accuracy and ap propriate Severity of Illness (SOI). Please clarify the information noted below in your progress notes and discharge summary. Risk Factors/Clinical Indicators/Treatments BNP 1086 H 1494 H IV lasix no history of CHF edema, ESQUEDA, orthopnea, a fib, obesity Echo completed CDS: Delma Riley CCS, [facility] Contact Number: [phone] Please Review the information above and exercise your independent professional judgment in responding to the query. If you concur, pleas document in the PROGRESS NOTES and DISCHARGE SUMMARY. If you do not agree with the query, please document in the query above. THIS QUERY IS PART OF THE PERMANENT MEDICAL RECORD
[2020-11-03] MEDS: Cholecalciferol (Vitamin D3) 25 MCG TABLET PO (08:59)
[2020-11-03] MEDS: Apixaban 5 MG TABLET PO ×2 (09:00→20:46)
[2020-11-03] MEDS: Furosemide 40 MG/4 ML VIAL 60 MG IVPUSH ×3 (09:00→20:46)
[2020-11-03] MEDS: 0.9 % Sodium Chloride Flush 3 ML SYRINGE IVFLUSH ×3 (09:03→20:47)
--- NOTE | 2020-11-03 09:50 | HO.PM.IMPN ---
Subjective Subjective Date of Service: 11/03/20 Interval History: seen and examined this AM breathing slowly improving as are his heart rates still reports significant swelling LE ROS General - no fevers or chills Cardiovascular - no chest pain Respiratory - +SOB, with exertion, slowly improving Abdominal- no abdominal pain, nausea, vomiting, diarrhea Physical Exam Vital Signs: Vital Signs: Last Vital Signs Temp 97.6 F 11/03/20 07:49 Pulse 85 11/03/20 07:49 Resp 18 11/03/20 07:49 BP 110/81 11/03/20 07:49 Pulse Ox 96 11/03/20 07:49 Body Mass Index 41.1 Const: Other: General - no acute distress, appears comfortable Cardiovascular - IRR, 2+ pitting edema Lungs - diminished sounds, rales improved Abdomen - soft, nontender, no rebound or guarding Extremities - no edema bilaterally Neuro - awake and alert, no focal deficits Objective Data Current Medications Generic Name Dose Route Start Last Admin Trade Name Freq PRN Reason Stop Dose Admin Acetaminophen 650 mg 11/01/20 13:29 Acetaminophen 325 Mg Tablet PO Q6H PRN Pain, Mild (Pain Scale 1-3) Apixaban 5 mg 11/01/20 21:00 11/03/20 09:00 Apixaban 5 Mg Tablet PO 5 mg BID RAMYA Administration Furosemide 60 mg 11/02/20 15:00 11/03/20 09:00 Furosemide 40 Mg/4 Ml Vial IVPUSH 60 mg TID [facility] Administration Protocol Insulin Human Lispro 0 unit 11/01/20 16:30 11/03/20 07:25 Insulin Lispro 100 Unit/Ml 3 Ml Vial SUBCUT Not Given QIDACHS COUNT INCLUDES THE [facility] Protocol Metoprolol Tartrate 25 mg 11/02/20 18:00 11/03/20 06:14 Metoprolol Tartrate 25 Mg Tablet PO 25 mg Q6H [facility] Administration Protocol Multivitamins/Minerals 1 tab 11/02/20 09:00 11/03/20 08:59 Multivitamin With Minerals Tablet PO 1 tab DAILY [facility] Administration Ondansetron HCl 4 mg 11/01/20 13:29 Ondansetron Hcl 4 Mg/2 Ml Vial IVPUSH Q8H PRN Nausea and Vomiting Pharmacy Consult 1 each 11/01/20 10:28 Consult Rx Perform Med Rec MISCELLANE ONCE PRN Consult order Sodium Chloride 3 ml 11/01/20 16:00 11/03/20 09:03 0.9 % Sodium Chloride Flush 3 Ml Syringe IVFLUSH 3 ml QSHIFT [facility] Administration Vitamin D 25 mcg 11/02/20 09:00 11/03/20 08:59 Cholecalciferol (Vitamin D3) 25 Mcg Tablet PO 25 mcg DAILY [facility] Administration Labs CBC & Chem 7: 11/03/20 04:12 11/03/20 04:12 Assessment and Plan (1) Acute congestive heart failure: Status: Acute Assessment and Plan: This is a 65-year-old male who presented to the hospital with complaints of weight gain and progressive shortness of breath. He was diagnosed with A. Fib during a urgent care visit in the past month or so, but definitive duration of A. Fib is unknown. He is also in Acute CHF. 1. Acute HFrEF newly diagnosed, possibly tachycardia induced Echo showing EF 10 to 15%, also has pulm HTN on echo respiratory status slowly improving but he still remains clinically volume overloaded continue with IV lasix at higher dose -- 60mg TID; negative 3L fluid balance documneted thus far I/O daily weights Cardiology on the case CHF education provided 2. A. Fib with RVR rates improved cardizem discontinued in light of decreased EF completed IV digoxin load continue with oral metoprolol and oral digoxin will need cardioversion once his volume status is improved continue Eliquis 5mg BID 3. DM previously was diet controlled A1C now >7 being treated with sliding scale while in the hospital will plan on d/c with metformin diabetic education provided 4. HTN metoprolol as above 5. Morbid Obesity BMI 41.1 Diet and weight loss have been encouraged 6. Mild Renal insuffiency SCr 1.59 upon admission, decreased to 1.32 today possibly cardiorenal Full Code DVT pptx, Eliquis
--- NOTE | 2020-11-03 10:21 | P.PNCA_ITS ---
Subjective Subjective Date of Service: 11/03/20 Interval history: He has been diuresing a lot with IV Lasix. Shortness of breath slightly better. Review of Systems Review of Systems Yes all other systems are reviewed and are negative Cardiovascular: Reports as per HPI, Reports no additional cardiovascular complaints, Reports Abdominal Distension, Denies acrocyanosis, Denies cool extremities, Denies painful fingertips, Denies chest pain, Denies chest pain at rest, Denies diaphoresis, Denies syncope, Reports pedal edema, Denies irregular heart rhythm, Denies claudication, Denies leg edema, Denies lightheadedness, Denies palpitations and Reports dyspnea Respiratory: Reports dyspnea Denies syncope Endocrine: Denies palpitations Physical Exam Vital Signs: Last Vital Signs Temp 97.6 F 11/03/20 07:49 Pulse 85 11/03/20 07:49 Resp 18 11/03/20 07:49 BP 110/81 11/03/20 07:49 Pulse Ox 96 11/03/20 07:49 Body Mass Index 41.1 Const General: cooperative, comfortable and no acute distress Orientation/consciousness: patient oriented x3 HENMT Other: Unremarkable Neck Neck: Yes normal visual inspection Chest Chest palpation & inspection: normal inspection of the chest Resp Auscultation: clear to auscultation bilaterally, no crackles and no wheezes Cardio Jugular venous distension: no JVD Palpation: normal PMI Heart sounds: S1 normal heart sound present, S2 normal heart sound present, no gallops, no murmurs and no rubs GI Palpation (GI): Soft to palpation and Ascites present Back/Spine/Pelvis Other: unremarkable Skin General skin exam: no rashes or lesions noted Neuro General: patient oriented x3 Extrem General: Yes edema (2+ edema) Psych Mental Status: mental status grossly normal Results Labs and Meds Result diagrams: 11/03/20 04:12 11/03/20 04:12 Lab results: Laboratory Results - last 24 hr 11/02/20 11/02/20 11/02/20 12:35 16:37 21:20 WBC RBC Hgb Hct MCV MCH MCHC RDW Plt Count MPV Immature Gran % (Auto) Neut % (Auto) Lymph % (Auto) [place] % (Auto) Eos % (Auto) Baso % (Auto) Lymph # (Auto) [place] # (Auto) Eos # (Auto) Baso # (Auto) Abs Immat Gran (auto) Absolute Neuts (auto) Absolute Nucleated RBC Nucleated RBC % (auto) Sodium Potassium Chloride Carbon Dioxide Anion Gap BUN Creatinine Estim Creat Clear Calc Estimated GFR POC Glucose 139 H 147 H 133 H Random Glucose Calcium B-Natriuretic Peptide 11/03/20 11/03/20 11/03/20 04:12 04:12 04:12 WBC 5.9 RBC 4.75 Hgb 13.1 L Hct 41.1 L MCV 86.5 MCH 27.6 MCHC 31.9 RDW 16.5 H Plt Count 202 MPV 10.6 Immature Gran % (Auto) 0.2 Neut % (Auto) 54.6 Lymph % (Auto) 30.5 [place] % (Auto) 10.3 Eos % (Auto) 3.9 Baso % (Auto) 0.5 Lymph # (Auto) 1.8 [place] # (Auto) 0.6 Eos # (Auto) 0.2 Baso # (Auto) 0.0 Abs Immat Gran (auto) 0.01 Absolute Neuts (auto) 3.2 Absolute Nucleated RBC 0.000 Nucleated RBC % (auto) 0.0 Sodium 139 Potassium 4.2 Chloride 100 Carbon Dioxide 31 H Anion Gap 12 BUN 22 H Creatinine 1.32 Estim Creat Clear Calc 80.1 Estimated GFR 54 POC Glucose Random Glucose 107 Calcium 9.1 B-Natriuretic Peptide 1494 H 11/03/20 07:10 WBC RBC Hgb Hct MCV MCH MCHC RDW Plt Count MPV Immature Gran % (Auto) Neut % (Auto) Lymph % (Auto) [place] % (Auto) Eos % (Auto) Baso % (Auto) Lymph # (Auto) [place] # (Auto) Eos # (Auto) Baso # (Auto) Abs Immat Gran (auto) Absolute Neuts (auto) Absolute Nucleated RBC Nucleated RBC % (auto) Sodium Potassium Chloride Carbon Dioxide Anion Gap BUN Creatinine Estim Creat Clear Calc Estimated GFR POC Glucose 89 Random Glucose Calcium B-Natriuretic Peptide Progress Note: A&P Assessment and plan (1) Atrial fibrillation with rapid ventricular response: Status: Acute (2) Acute systolic (congestive) heart failure: Status: Acute Assessment and Plan: Atrial fibrillation of unknown duration. Clinically, he is in congestive heart failure. Cardiac BNP is elevated at 1417. High sensitivity troponins are 47 and 51. Continue his IV diuretics. Echocardiogram with severe LV dysfunction. Continue diurese aggressively. Continue beta-blockers, digoxin, Eliquis. Will need cardioversion at some point and timing to be decided. Fall Risk Details Current Medications: Current Medications Generic Name Dose Route Start Last Admin Trade Name Freq PRN Reason Stop Dose Admin Acetaminophen 650 mg 11/01/20 13:29 Acetaminophen 325 Mg Tablet PO Q6H PRN Pain, Mild (Pain Scale 1-3) Apixaban 5 mg 11/01/20 21:00 11/03/20 09:00 Apixaban 5 Mg Tablet PO 5 mg BID RAMYA Administration Furosemide 60 mg 11/02/20 15:00 11/03/20 09:00 Furosemide 40 Mg/4 Ml Vial IVPUSH 60 mg TID RAMYA Administration Protocol Insulin Human Lispro 0 unit 11/01/20 16:30 11/03/20 07:25 Insulin Lispro 100 Unit/Ml 3 Ml Vial SUBCUT Not Given QIDACHS [facility] Protocol Metoprolol Tartrate 25 mg 11/02/20 18:00 11/03/20 06:14 Metoprolol Tartrate 25 Mg Tablet PO 25 mg Q6H RAMYA Administration Protocol Multivitamins/Minerals 1 tab 11/02/20 09:00 11/03/20 08:59 Multivitamin With Minerals Tablet PO 1 tab DAILY RAMYA Administration Ondansetron HCl 4 mg 11/01/20 13:29 Ondansetron Hcl 4 Mg/2 Ml Vial IVPUSH Q8H PRN Nausea and Vomiting Pharmacy Consult 1 each 11/01/20 10:28 Consult Rx Perform Med Rec MISCELLANE ONCE PRN Consult order Sodium Chloride 3 ml 11/01/20 16:00 11/03/20 09:03 0.9 % Sodium Chloride Flush 3 Ml Syringe IVFLUSH 3 ml QSHIFT RAMYA Administration Vitamin D 25 mcg 11/02/20 09:00 11/03/20 08:59 Cholecalciferol (Vitamin D3) 25 Mcg Tablet PO 25 mcg DAILY RAMYA Administration Time Spent With Patient Time: Total time spent is greater than 50% in coordination of care (as documented) at patient's floor/unit and/or counseling patient: Time with patient: less than 15 minutes
[2020-11-03 11:04] LABS: Glucose, Whole Blood 130 mg/dL (60-115)
--- NOTE | 2020-11-03 12:07 | MHC.CM.PN ---
per possible dc tomorrow dc [facility] no servcies
[2020-11-03 16:32] LABS: Glucose, Whole Blood 96 mg/dL (60-115)
[2020-11-03 20:29] LABS: Glucose, Whole Blood 148 mg/dL (60-115)
[2020-11-03 21:26] LABS: Anion Gap 13 (12-20); Blood Urea Nitrogen 21 mg/dL (9-16); Calcium 9.2 mg/dL (8.4-10.2); Carbon Dioxide 36 mmol/L (22-29); Chloride 94 mmol/L (96-108); Creatinine Clr Calc Pharmacy 80.7; Estimated Glomerular Filt Rate 55; Glucose Random 123 mg/dL (60-115); Magnesium 1.7 mg/dL (1.6-2.6); Potassium 3.8 mmol/L (3.3-5.1); Sodium 139 mmol/L (135-145)
--- NOTE | 2020-11-03 21:40 | P.EN_ITS ---
Event Note Date of Service: 11/03/20 Event Note: NSVT: Patient had 16 beats of V-tach. Followed by 4 beats. Tatiana ent went asymptomatic. Potassium 3.8-given 20 mEq of KCl. Magnesium 1.7-given 1 g of Mag sulfate. Will obtain echocardiogram Cardiology consult
[2020-11-03] MEDS: Potassium Chloride ER 20 MEQ TAB.ER.PRT PO (22:37)
[2020-11-03] MEDS: Magnesium Sulfate/D5W 1 GM/100 ML PIGGYBACK IV (22:37)
[2020-11-04] VITALS (11 sets, daily range): BP systolic 99–162; BP diastolic 58–100; PULSE 78–110; RESP 16–20; TEMP 35.8–36.8; O2SAT 95–99
[2020-11-04] MEDS: Metoprolol Tartrate 25 MG TABLET PO (00:14)
[2020-11-04 07:00] LABS: Anion Gap 15 (12-20); Blood Urea Nitrogen 19 mg/dL (9-16); Carbon Dioxide 33 mmol/L (22-29); Chloride 96 mmol/L (96-108); Creatinine Clr Calc Pharmacy 88.1; Estimated Glomerular Filt Rate > 60; Glucose Random 95 mg/dL (60-115); Magnesium 1.7 mg/dL (1.6-2.6); Potassium 3.7 mmol/L (3.3-5.1); Sodium 140 mmol/L (135-145)
--- NOTE | 2020-11-04 07:12 | PC.NURSE ---
P: Pt had a 16 beat Vtach I: Assessed pt, obtained VS, MD made aware. Lab to bedside to draw serum mag, and K+ E: Pts Mag 1.7, K+ 3.7. Pt given po potassium replacement and 1gm IV Mag. Cardi consult was placed. Will continue to monitor.
[2020-11-04 07:28] LABS: Glucose, Whole Blood 133 mg/dL (60-115)
[2020-11-04] MEDS: Potassium Chloride ER 20 MEQ TAB.ER.PRT 40 MEQ PO (09:32)
[2020-11-04] MEDS: Digoxin 0.25 MG TABLET PO (09:32)
[2020-11-04] MEDS: Cholecalciferol (Vitamin D3) 25 MCG TABLET PO (09:32)
[2020-11-04] MEDS: 0.9 % Sodium Chloride Flush 3 ML SYRINGE IVFLUSH ×2 (09:33→15:51)
[2020-11-04] MEDS: Furosemide 40 MG/4 ML VIAL 60 MG IVPUSH ×3 (09:33→21:11)
[2020-11-04] MEDS: Magnesium Sulfate/H2O 2 GM/50 ML PIGGYBACK IV (09:33)
[2020-11-04] MEDS: Apixaban 5 MG TABLET PO ×2 (09:33→21:11)
[2020-11-04 11:07] LABS: Glucose, Whole Blood 140 mg/dL (60-115)
--- NOTE | 2020-11-04 12:16 | P.PNCA_ITS ---
Subjective Subjective Date of Service: 11/04/20 Interval history: He states that he is doing okay. Continues diuresis. Shortness of breath is better. Review of Systems Review of Systems Yes all other systems are reviewed and are negative Cardiovascular: Reports as per HPI, Reports no additional cardiovascular complaints, Reports Abdominal Distension, Denies acrocyanosis, Denies cool extremities, Denies painful fingertips, Denies chest pain, Denies chest pain at rest, Denies diaphoresis, Denies syncope, Reports pedal edema, Denies irregular heart rhythm, Denies claudication, Denies leg edema, Denies lightheadedness, Denies palpitations and Reports dyspnea Respiratory: Reports dyspnea Denies syncope Endocrine: Denies palpitations Physical Exam Vital Signs: Last Vital Signs Temp 97.8 F 11/04/20 11:00 Pulse 95 11/04/20 11:00 Resp 18 11/04/20 11:00 BP 118/79 11/04/20 11:00 Pulse Ox 95 11/04/20 11:00 Body Mass Index 41.1 Const General: cooperative, comfortable and no acute distress Orientation/consciousness: patient oriented x3 HENMT Other: Unremarkable Neck Neck: Yes normal visual inspection Chest Chest palpation & inspection: normal inspection of the chest Resp Auscultation: clear to auscultation bilaterally, no crackles and no wheezes Cardio Jugular venous distension: no JVD Palpation: normal PMI Heart sounds: S1 normal heart sound present, S2 normal heart sound present, no gallops, no murmurs and no rubs GI Palpation (GI): Soft to palpation and Ascites present Back/Spine/Pelvis Other: unremarkable Skin General skin exam: no rashes or lesions noted Neuro General: patient oriented x3 Extrem General: Yes edema (2+ edema) Psych Mental Status: mental status grossly normal Results Labs and Meds Result diagrams: 11/03/20 04:12 11/04/20 05:52 Lab results: Laboratory Results - last 24 hr 11/03/20 11/03/20 11/03/20 16:22 20:15 20:50 Sodium 139 Potassium 3.8 Chloride 94 L Carbon Dioxide 36 H Anion Gap 13 BUN 21 H Creatinine 1.31 Estim Creat Clear Calc 80.7 Estimated GFR 55 POC Glucose 96 148 H Random Glucose 123 H Calcium 9.2 Magnesium 1.7 11/04/20 11/04/20 11/04/20 05:52 07:13 11:03 Sodium 140 Potassium 3.7 Chloride 96 Carbon Dioxide 33 H Anion Gap 15 BUN 19 H Creatinine 1.20 Estim Creat Clear Calc 88.1 Estimated GFR > 60 POC Glucose 133 H 140 H Random Glucose 95 Calcium 9.0 Magnesium 1.7 Progress Note: A&P Assessment and plan (1) Atrial fibrillation with rapid ventricular response: Status: Acute (2) Acute systolic (congestive) heart failure: Status: Acute Assessment and Plan: Atrial fibrillation of unknown duration. Clinically, he is in congestive heart failure. Cardiac BNP is elevated at 1417. High sensitivity troponins are 47 and 51. Continue his IV diuretics. Echocardiogram with severe LV dysfunction. We will plan on XIAO/cardioversion tomorrow. We will hold off on rate controlling drugs today. Fall Risk Details Current Medications: Current Medications Generic Name Dose Route Start Last Admin Trade Name Freq PRN Reason Stop Dose Admin Acetaminophen 650 mg 11/01/20 13:29 Acetaminophen 325 Mg Tablet PO Q6H PRN Pain, Mild (Pain Scale 1-3) Apixaban 5 mg 11/01/20 21:00 11/04/20 09:33 Apixaban 5 Mg Tablet PO 5 mg BID RAMYA Administration Furosemide 60 mg 11/02/20 15:00 11/04/20 09:33 Furosemide 40 Mg/4 Ml Vial IVPUSH 60 mg TID RAMYA Administration Protocol Insulin Human Lispro 0 unit 11/01/20 16:30 11/04/20 08:17 Insulin Lispro 100 Unit/Ml 3 Ml Vial SUBCUT Not Given QIDACHS [facility] Protocol Multivitamins/Minerals 1 tab 11/02/20 09:00 11/04/20 09:33 Multivitamin With Minerals Tablet PO 1 tab DAILY RAMYA Administration Ondansetron HCl 4 mg 11/01/20 13:29 Ondansetron Hcl 4 Mg/2 Ml Vial IVPUSH Q8H PRN Nausea and Vomiting Pharmacy Consult 1 each 11/01/20 10:28 Consult Rx Perform Med Rec MISCELLANE ONCE PRN Consult order Polyethylene Glycol 17 gm 11/04/20 10:00 11/04/20 10:04 Polyethylene Glycol 3350 17 Gm Powd.Pack PO Not Given DAILY RAMYA Sodium Chloride 3 ml 11/01/20 16:00 11/04/20 09:33 0.9 % Sodium Chloride Flush 3 Ml Syringe IVFLUSH 3 ml QSHIFT RAMYA Administration Vitamin D 25 mcg 11/02/20 09:00 11/04/20 09:32 Cholecalciferol (Vitamin D3) 25 Mcg Tablet PO 25 mcg DAILY RAMYA Administration Time Spent With Patient Time: Total time spent is greater than 50% in coordination of care (as documented) at patient's floor/unit and/or counseling patient: Time with patient: less than 15 minutes
--- NOTE | 2020-11-04 12:50 | P.PNIM_ITS ---
Subjective Subjective Date of Service: 11/04/20 Interval History: seen and examined this AM feeling better daily in regards to breathing remains in a. fib and fluid overloaded ROS General - no fevers or chills Cardiovascular - no chest pain Respiratory - +SOB, with exertion, slowly improving Abdominal- no abdominal pain, nausea, vomiting, diarrhea Physical Exam Vital Signs: Vital Signs: Last Vital Signs Temp 97.8 F 11/04/20 11:00 Pulse 95 11/04/20 11:00 Resp 18 11/04/20 11:00 BP 118/79 11/04/20 11:00 Pulse Ox 95 11/04/20 11:00 Body Mass Index 41.1 Const: Other: General - no acute distress, appears comfortable Cardiovascular - IRR, 2+ pitting edema Lungs - diminished sounds, rales improved Abdomen - soft, nontender, no rebound or guarding Extremities - no edema bilaterally Neuro - awake and alert, no focal deficits Objective Data Current Medications Generic Name Dose Route Start Last Admin Trade Name Freq PRN Reason Stop Dose Admin Acetaminophen 650 mg 11/01/20 13:29 Acetaminophen 325 Mg Tablet PO Q6H PRN Pain, Mild (Pain Scale 1-3) Apixaban 5 mg 11/01/20 21:00 11/04/20 09:33 Apixaban 5 Mg Tablet PO 5 mg BID RAYMA Administration Furosemide 60 mg 11/02/20 15:00 11/04/20 09:33 Furosemide 40 Mg/4 Ml Vial IVPUSH 60 mg TID RAMYA Administration Protocol Insulin Human Lispro 0 unit 11/01/20 16:30 11/04/20 12:18 Insulin Lispro 100 Unit/Ml 3 Ml Vial SUBCUT Not Given QIDACHS [facility] Protocol Multivitamins/Minerals 1 tab 11/02/20 09:00 11/04/20 09:33 Multivitamin With Minerals Tablet PO 1 tab DAILY RAMYA Administration Ondansetron HCl 4 mg 11/01/20 13:29 Ondansetron Hcl 4 Mg/2 Ml Vial IVPUSH Q8H PRN Nausea and Vomiting Pharmacy Consult 1 each 11/01/20 10:28 Consult Rx Perform Med Rec MISCELLANE ONCE PRN Consult order Polyethylene Glycol 17 gm 11/04/20 10:00 11/04/20 10:04 Polyethylene Glycol 3350 17 Gm Powd.Pack PO Not Given DAILY [facility] Sodium Chloride 3 ml 11/01/20 16:00 11/04/20 09:33 0.9 % Sodium Chloride Flush 3 Ml Syringe IVFLUSH 3 ml QSHIFT RAMYA Administration Vitamin D 25 mcg 11/02/20 09:00 11/04/20 09:32 Cholecalciferol (Vitamin D3) 25 Mcg Tablet PO 25 mcg DAILY RAMYA Administration Labs CBC & Chem 7: 11/03/20 04:12 11/04/20 05:52 Assessment and Plan (1) Acute congestive heart failure: Status: Acute Assessment and Plan: This is a 65-year-old male who presented to the hospital with complaints of weight gain and progressive shortness of breath. He was diagnosed with A. Fib during a urgent care visit in the past month or so, but definitive duration of A. Fib is unknown. He is also in Acute CHF. 1. Acute HFrEF newly diagnosed, possibly tachycardia induced Echo showing EF 10 to 15%, also has pulm HTN on echo respiratory status slowly improving but he still remains clinically volume overloaded continue IV diuretics I/O daily weights Cardiology on the case CHF education provided 2. A. Fib with RVR rates improved, had some slow a. fib this AM hold metoprolol + dig today plan for XIAO cardioversion tomorrow, NPO after midnight continue Addy had ? run of NSVT over night -- mag and K being repleted 3. DM previously was diet controlled A1C now >7 being treated with sliding scale while in the hospital will plan on d/c with metformin diabetic education provided 4. HTN metoprolol as above 5. Morbid Obesity BMI 41.1 Diet and weight loss have been encouraged 6. Mild Renal insuffiency SCr 1.59 upon admission, decreased to 1.2 today possibly cardiorenal Full Code DVT pptx, Eliqushaheed
[2020-11-04 16:32] LABS: Glucose, Whole Blood 104 mg/dL (60-115)
[2020-11-04 20:21] LABS: Glucose, Whole Blood 113 mg/dL (60-115)
[2020-11-05] VITALS (15 sets, daily range): BP systolic 102–149; BP diastolic 65–104; PULSE 79–128; RESP 14–20; TEMP 36.1–37.3; O2SAT 94–99; BMI 41.1
--- NOTE | 2020-11-05 | ECG_ITS ---
Test Reason : POST CRDIOVERSION Blood Pressure : / mmHG Vent. Rate : 088 BPM Atrial Rate : 088 BPM P-R Int : 216 ms QRS Dur : 112 ms QT Int : 382 ms P-R-T Axes : 000 -59 147 degrees QTc Int : 462 ms Sinus rhythm with 1st degree A-V block with Premature atrial complexes Left anterior fascicular block T wave abnormality, consider lateral ischemia Cannot rule out anterior infarct Prolonged QT Abnormal ECG When compared with ECG of 03-NOV-2020 13:41, Sinus rhythm has replaced Atrial fibrillation Referred By: Sergio Escalante Electronically Signed By:Miko Dhillon
[2020-11-05] MEDS: 0.9 % Sodium Chloride Flush 3 ML SYRINGE IVFLUSH ×4 (00:45→20:58)
[2020-11-05 07:29] LABS: Glucose, Whole Blood 94 mg/dL (60-115)
[2020-11-05] MEDS: Apixaban 5 MG TABLET PO ×2 (08:51→20:57)
[2020-11-05] MEDS: Cholecalciferol (Vitamin D3) 25 MCG TABLET PO (08:51)
[2020-11-05] MEDS: Furosemide 40 MG/4 ML VIAL 60 MG IVPUSH ×3 (08:51→20:57)
[2020-11-05] MEDS: polyethylene glycoL 3350 17 GM POWD.PACK PO (08:52)
[2020-11-05 08:53] LABS: Anion Gap 16 (12-20); Blood Urea Nitrogen 15 mg/dL (9-16); Calcium 9.8 mg/dL (8.4-10.2); Carbon Dioxide 39 mmol/L (22-29); Chloride 93 mmol/L (96-108); Creatinine Clr Calc Pharmacy 82.6; Estimated Glomerular Filt Rate 56; Glucose Random 103 mg/dL (60-115); Potassium 4.3 mmol/L (3.3-5.1); Sodium 144 mmol/L (135-145)
--- NOTE | 2020-11-05 10:13 | P.PNIM_ITS ---
Subjective Subjective Date of Service: 11/05/20 Interval History: seen and examined this AM continues to improve from a respiratory stand point awaiting cardioversion today ROS General - no fevers or chills Cardiovascular - no chest pain Respiratory - ESQUEDA slowly improves Abdominal- no abdominal pain, nausea, vomiting, diarrhea Physical Exam Vital Signs: Vital Signs: Last Vital Signs Temp 97.9 F 11/05/20 07:43 Pulse 99 11/05/20 07:43 Resp 20 11/05/20 07:43 BP 149/91 H 11/05/20 07:43 Pulse Ox 99 11/05/20 07:43 Body Mass Index 41.1 Const: Other: General - no acute distress, appears comfortable Cardiovascular - IRR, 2+ pitting edema, now below the knee primarily Lungs - diminished sounds, rales improved Abdomen - soft, nontender, no rebound or guarding Extremities - no edema bilaterally Neuro - awake and alert, no focal deficits Objective Data Current Medications Generic Name Dose Route Start Last Admin Trade Name Freq PRN Reason Stop Dose Admin Acetaminophen 650 mg 11/01/20 13:29 Acetaminophen 325 Mg Tablet PO Q6H PRN Pain, Mild (Pain Scale 1-3) Apixaban 5 mg 11/01/20 21:00 11/05/20 08:51 Apixaban 5 Mg Tablet PO 5 mg BID RAMYA Administration Furosemide 60 mg 11/02/20 15:00 11/05/20 08:51 Furosemide 40 Mg/4 Ml Vial IVPUSH 60 mg TID RAMYA Administration Protocol Insulin Human Lispro 0 unit 11/01/20 16:30 11/05/20 08:57 Insulin Lispro 100 Unit/Ml 3 Ml Vial SUBCUT Not Given QIDACHS [facility] Protocol Multivitamins/Minerals 1 tab 11/02/20 09:00 11/05/20 08:50 Multivitamin With Minerals Tablet PO 1 tab DAILY RAMYA Administration Ondansetron HCl 4 mg 11/01/20 13:29 Ondansetron Hcl 4 Mg/2 Ml Vial IVPUSH Q8H PRN Nausea and Vomiting Pharmacy Consult 1 each 11/01/20 10:28 Consult Rx Perform Med Rec MISCELLANE ONCE PRN Consult order Polyethylene Glycol 17 gm 11/04/20 10:00 11/05/20 08:52 Polyethylene Glycol 3350 17 Gm Powd.Pack PO 17 gm DAILY RAMYA Administration Sodium Chloride 3 ml 11/01/20 16:00 11/05/20 08:54 0.9 % Sodium Chloride Flush 3 Ml Syringe IVFLUSH 3 ml QSHIFT RAMYA Administration Vitamin D 25 mcg 11/02/20 09:00 11/05/20 08:51 Cholecalciferol (Vitamin D3) 25 Mcg Tablet PO 25 mcg DAILY RAMYA Administration Labs CBC & Chem 7: 11/03/20 04:12 11/05/20 07:57 Assessment and Plan (1) Acute congestive heart failure: Status: Acute Assessment and Plan: This is a 65-year-old male who presented to the hospital with complaints of weight gain and progressive shortness of breath. He was diagnosed with A. Fib during a urgent care visit in the past month or so, but definitive duration of A. Fib is unknown. He is also in Acute CHF. 1. Acute HFrEF newly diagnosed, possibly tachycardia induced Echo showing EF 10 to 15%, also has pulm HTN on echo slowly improving, continue IV diuretics - I/O daily weights Cardiology on the case CHF education provided 2. A. Fib with RVR overall rates improved rates control drugs on hold per cardiology recs plan for XIAO cardioversion today continue Eliquis 3. DM previously was diet controlled A1C now >7 being treated with sliding scale while in the hospital will plan on d/c with metformin diabetic education provided 4. HTN improved on metoprolol 5. Morbid Obesity BMI 41.1 Diet and weight loss have been encouraged 6. Mild Renal insuffiency SCr 1.59 upon admission, decreased to 1.28 today possibly cardiorenal Full Code DVT pptx, Eliquis dispo: anticipate home in the next 24-48 hours if stable post cardioversion
[2020-11-05] MEDS: Lactated Ringers 1,000 ML 50 ML IV (10:35)
[2020-11-05 10:36] LABS: Magnesium 1.9 mg/dL (1.6-2.6)
[2020-11-05 10:38] LABS: Glucose, Whole Blood 124 mg/dL (60-115)
--- NOTE | 2020-11-05 11:02 | P.CONAN_ITS ---
HPI - Anesthesia Eval Consult details Narrative: 65 M CHF, PAH p/f XIAO/cardioversion for afib [facility] Active Problems Active Problems: All Active Problems (Updated 11/03/20 @ 10:22 by Sergio Escalante MD) Acute systolic (congestive) heart failure (Acute) Acute congestive heart failure (Acute) Atrial fibrillation with rapid ventricular response (Acute) Acute renal insufficiency (Acute) CHF (congestive heart failure) (Acute) Atrial fibrillation (Acute) Hypercholesterolemia (Acute) Vitamin D deficiency (Acute) Type 2 diabetes mellitus with hyperglycemia (Acute) Obesity (BMI 30-39.9) (Acute) Hypertension (Acute) Past Medical History Medical History Erectile dysfunction Gallbladder polyp Gonorrhea Hypercholesterolemia Hypertension Obesity (BMI 30-39.9) Type 2 diabetes mellitus with hyperglycemia Vitamin D deficiency Surgical History Surgical History History of tonsillectomy Social History Social History Household Members: None Housing: House Alcohol intake: never Smoking Status: Never smoker Advance Directives Date on File: 11/02/20 service: No Current occupational status: employed Meds Allergies Allergy/AdvReac Type Severity Reaction Status Date / Time No Known Allergies Allergy Unverified 04/08/20 14:40 Active Medications: Current Medications Generic Name Dose Route Start Last Admin Trade Name Freq PRN Reason Stop Dose Admin Acetaminophen 650 mg 11/01/20 13:29 Acetaminophen 325 Mg Tablet PO Q6H PRN Pain, Mild (Pain Scale 1-3) Apixaban 5 mg 11/01/20 21:00 11/05/20 08:51 Apixaban 5 Mg Tablet PO 5 mg BID RAMYA Administration Furosemide 60 mg 11/02/20 15:00 11/05/20 08:51 Furosemide 40 Mg/4 Ml Vial IVPUSH 60 mg TID RAMYA Administration Protocol Insulin Human Lispro 0 unit 11/01/20 16:30 11/05/20 08:57 Insulin Lispro 100 Unit/Ml 3 Ml Vial SUBCUT Not Given QIDACHS RAMYA Protocol Multivitamins/Minerals 1 tab 11/02/20 09:00 11/05/20 08:50 Multivitamin With Minerals Tablet PO 1 tab DAILY RAMYA Administration Ondansetron HCl 4 mg 11/01/20 13:29 Ondansetron Hcl 4 Mg/2 Ml Vial IVPUSH Q8H PRN Nausea and Vomiting Pharmacy Consult 1 each 11/01/20 10:28 Consult Rx Perform Med Rec MISCELLANE ONCE PRN Consult order Polyethylene Glycol 17 gm 11/04/20 10:00 11/05/20 08:52 Polyethylene Glycol 3350 17 Gm Powd.Pack PO 17 gm DAILY RAMYA Administration Sodium Chloride 3 ml 11/01/20 16:00 11/05/20 08:54 0.9 % Sodium Chloride Flush 3 Ml Syringe IVFLUSH 3 ml QSHIFT RAMYA Administration Vitamin D 25 mcg 11/02/20 09:00 11/05/20 08:51 Cholecalciferol (Vitamin D3) 25 Mcg Tablet PO 25 mcg DAILY RAMYA Administration Home Medications Medication Instructions Recorded Confirmed Last Taken Type cholecalciferol (vitamin D3) 25 25 mcg PO DAILY 11/01/20 11/01/20 10/31/20 History mcg (1,000 unit) capsule lactobacillus combination no.9 4 4,000 mmu cells PO DAILY 11/01/20 11/01/20 10/31/20 History billion cell capsule fsgqeizizynj-axtjpjpa-qlxcuj tablet 1 tab PO DAILY 11/01/20 11/01/20 10/31/20 History psyllium husk 3.4 gram/5.4 gram 1 tbsp PO DAILY 11/01/20 11/01/20 10/31/20 History oral powder Exam Exam Date and Time: November 05, 2020 1102 Height,Weight and Vital Signs: Height 6 ft Weight 137.438 kg Last Vital Signs Temp 98.3 F 11/05/20 10:30 Pulse 128 H 11/05/20 10:30 Resp 18 11/05/20 10:30 BP 143/104 H 11/05/20 10:30 Pulse Ox 99 11/05/20 10:30 Pertinent Lab Results Pertinent Lab Results: Laboratory Tests 11/01/20 11/01/20 11/01/20 10:37 10:37 10:37 WBC 7.8 RBC 5.32 Hgb 14.6 Hct 46.0 MCV 86.5 MCH 27.4 MCHC 31.7 RDW 16.7 H Plt Count 258 MPV 10.2 Immature Gran % (Auto) 0.3 Neut % (Auto) 65.2 Lymph % (Auto) 25.1 Metcalfe % (Auto) 7.5 Eos % (Auto) 1.3 Baso % (Auto) 0.6 Lymph # (Auto) 2.0 Metcalfe # (Auto) 0.6 Eos # (Auto) 0.1 Baso # (Auto) 0.1 Abs Immat Gran (auto) 0.02 Absolute Neuts (auto) 5.1 Absolute Nucleated RBC 0.000 Nucleated RBC % (auto) 0.0 PT 13.8 H INR 1.2 H APTT 34.0 Sodium 139 Potassium 4.8 Chloride 102 Carbon Dioxide 24 Anion Gap 18 BUN 24 H Creatinine 1.59 H Estim Creat Clear Calc 66.5 Estimated GFR 44 POC Glucose Random Glucose 145 H Calcium 9.6 Magnesium 2.0 Total Bilirubin 1.3 H Direct Bilirubin 0.7 H AST 32 ALT 25 Alkaline Phosphatase 84 Troponin I High Sens B-Natriuretic Peptide Total Protein 7.3 Albumin 4.4 TSH COVID-19 ([facility]) COVID-[facility] 11/01/20 11/01/20 11/01/20 10:37 10:37 10:37 WBC RBC Hgb Hct MCV MCH MCHC RDW Plt Count MPV Immature Gran % (Auto) Neut % (Auto) Lymph % (Auto) Metcalfe % (Auto) Eos % (Auto) Baso % (Auto) Lymph # (Auto) Metcalfe # (Auto) Eos # (Auto) Baso # (Auto) Abs Immat Gran (auto) Absolute Neuts (auto) Absolute Nucleated RBC Nucleated RBC % (auto) PT INR APTT Sodium Potassium Chloride Carbon Dioxide Anion Gap BUN Creatinine Estim Creat Clear Calc Estimated GFR POC Glucose Random Glucose Calcium Magnesium Total Bilirubin Direct Bilirubin AST ALT Alkaline Phosphatase Troponin I High Sens 47.8 H B-Natriuretic Peptide 1417 H Total Protein Albumin TSH COVID-19 ([facility]) Negative COVID-[facility] Com See Note 11/01/20 11/01/20 11/01/20 10:37 14:53 21:15 WBC RBC Hgb Hct MCV MCH MCHC RDW Plt Count MPV Immature Gran % (Auto) Neut % (Auto) Lymph % (Auto) Metcalfe % (Auto) Eos % (Auto) Baso % (Auto) Lymph # (Auto) Metcalfe # (Auto) Eos # (Auto) Baso # (Auto) Abs Immat Gran (auto) Absolute Neuts (auto) Absolute Nucleated RBC Nucleated RBC % (auto) PT INR APTT Sodium Potassium Chloride Carbon Dioxide Anion Gap BUN Creatinine Estim Creat Clear Calc Estimated GFR POC Glucose 135 H Random Glucose Calcium Magnesium Total Bilirubin Direct Bilirubin AST ALT Alkaline Phosphatase Troponin I High Sens 51.6 H B-Natriuretic Peptide Total Protein Albumin TSH 1.62 COVID-19 ([facility]) COVID-19 Clin Com 11/02/20 11/02/20 11/02/20 07:05 07:05 07:05 WBC 5.4 RBC 4.67 Hgb 12.9 L Hct 40.2 L MCV 86.1 MCH 27.6 MCHC 32.1 RDW 16.7 H Plt Count 198 MPV 10.4 Immature Gran % (Auto) 0.0 Neut % (Auto) 57.9 Lymph % (Auto) 27.7 Metcalfe % (Auto) 10.1 Eos % (Auto) 3.6 Baso % (Auto) 0.7 Lymph # (Auto) 1.5 Metcalfe # (Auto) 0.5 Eos # (Auto) 0.2 Baso # (Auto) 0.0 Abs Immat Gran (auto) 0.00 Absolute Neuts (auto) 3.1 Absolute Nucleated RBC 0.000 Nucleated RBC % (auto) 0.0 PT INR APTT Sodium 140 Potassium 4.7 Chloride 104 Carbon Dioxide 28 Anion Gap 13 BUN 22 H Creatinine 1.34 Estim Creat Clear Calc 78.9 Estimated GFR 53 POC Glucose Random Glucose 99 Calcium 8.8 D Magnesium Total Bilirubin Direct Bilirubin AST ALT Alkaline Phosphatase Troponin I High Sens B-Natriuretic Peptide 1086 H Total Protein Albumin TSH COVID-19 ([facility]) COVID-19 Clin [facility] 11/02/20 11/02/20 11/02/20 08:07 12:35 16:37 WBC RBC Hgb Hct MCV MCH MCHC RDW Plt Count MPV Immature Gran % (Auto) Neut % (Auto) Lymph % (Auto) Metcalfe % (Auto) Eos % (Auto) Baso % (Auto) Lymph # (Auto) Metcalfe # (Auto) Eos # (Auto) Baso # (Auto) Abs Immat Gran (auto) Absolute Neuts (auto) Absolute Nucleated RBC Nucleated RBC % (auto) PT INR APTT Sodium Potassium Chloride Carbon Dioxide Anion Gap BUN Creatinine Estim Creat Clear Calc Estimated GFR POC Glucose 92 139 H 147 H Random Glucose Calcium Magnesium Total Bilirubin Direct Bilirubin AST ALT Alkaline Phosphatase Troponin I High Sens B-Natriuretic Peptide Total Protein Albumin TSH COVID-19 ([facility]) COVID-19 [facility] 11/02/20 11/03/20 11/03/20 21:20 04:12 04:12 WBC 5.9 RBC 4.75 Hgb 13.1 L Hct 41.1 L MCV 86.5 MCH 27.6 MCHC 31.9 RDW 16.5 H Plt Count 202 MPV 10.6 Immature Gran % (Auto) 0.2 Neut % (Auto) 54.6 Lymph % (Auto) 30.5 Metcalfe % (Auto) 10.3 Eos % (Auto) 3.9 Baso % (Auto) 0.5 Lymph # (Auto) 1.8 Metcalfe # (Auto) 0.6 Eos # (Auto) 0.2 Baso # (Auto) 0.0 Abs Immat Gran (auto) 0.01 Absolute Neuts (auto) 3.2 Absolute Nucleated RBC 0.000 Nucleated RBC % (auto) 0.0 PT INR APTT Sodium 139 Potassium 4.2 Chloride 100 Carbon Dioxide 31 H Anion Gap 12 BUN 22 H Creatinine 1.32 Estim Creat Clear Calc 80.1 Estimated GFR 54 POC Glucose 133 H Random Glucose 107 Calcium 9.1 Magnesium Total Bilirubin Direct Bilirubin AST ALT Alkaline Phosphatase Troponin I High Sens B-Natriuretic Peptide Total Protein Albumin TSH COVID-19 ([facility]) COVID-19 [facility] 11/03/20 11/03/20 11/03/20 04:12 07:10 10:58 WBC RBC Hgb Hct MCV MCH MCHC RDW Plt Count MPV Immature Gran % (Auto) Neut % (Auto) Lymph % (Auto) Metcalfe % (Auto) Eos % (Auto) Baso % (Auto) Lymph # (Auto) Metcalfe # (Auto) Eos # (Auto) Baso # (Auto) Abs Immat Gran (auto) Absolute Neuts (auto) Absolute Nucleated RBC Nucleated RBC % (auto) PT INR APTT Sodium Potassium Chloride Carbon Dioxide Anion Gap BUN Creatinine Estim Creat Clear Calc Estimated GFR POC Glucose 89 130 H Random Glucose Calcium Magnesium Total Bilirubin Direct Bilirubin AST ALT Alkaline Phosphatase Troponin I High Sens B-Natriuretic Peptide 1494 H Total Protein Albumin TSH COVID-19 ([facility]) COVID-19 [facility] 11/03/20 11/03/20 11/03/20 16:22 20:15 20:50 WBC RBC Hgb Hct MCV MCH MCHC RDW Plt Count MPV Immature Gran % (Auto) Neut % (Auto) Lymph % (Auto) Metcalfe % (Auto) Eos % (Auto) Baso % (Auto) Lymph # (Auto) Metcalfe # (Auto) Eos # (Auto) Baso # (Auto) Abs Immat Gran (auto) Absolute Neuts (auto) Absolute Nucleated RBC Nucleated RBC % (auto) PT INR APTT Sodium 139 Potassium 3.8 Chloride 94 L Carbon Dioxide 36 H Anion Gap 13 BUN 21 H Creatinine 1.31 Estim Creat Clear Calc 80.7 Estimated GFR 55 POC Glucose 96 148 H Random Glucose 123 H Calcium 9.2 Magnesium 1.7 Total Bilirubin Direct Bilirubin AST ALT Alkaline Phosphatase Troponin I High Sens B-Natriuretic Peptide Total Protein Albumin TSH COVID-19 ([facility]) COVID-19 [facility] 11/04/20 11/04/20 11/04/20 05:52 07:13 11:03 WBC RBC Hgb Hct MCV MCH MCHC RDW Plt Count MPV Immature Gran % (Auto) Neut % (Auto) Lymph % (Auto) Metcalfe % (Auto) Eos % (Auto) Baso % (Auto) Lymph # (Auto) Metcalfe # (Auto) Eos # (Auto) Baso # (Auto) Abs Immat Gran (auto) Absolute Neuts (auto) Absolute Nucleated RBC Nucleated RBC % (auto) PT INR APTT Sodium 140 Potassium 3.7 Chloride 96 Carbon Dioxide 33 H Anion Gap 15 BUN 19 H Creatinine 1.20 Estim Creat Clear Calc 88.1 Estimated GFR > 60 POC Glucose 133 H 140 H Random Glucose 95 Calcium 9.0 Magnesium 1.7 Total Bilirubin Direct Bilirubin AST ALT Alkaline Phosphatase Troponin I High Sens B-Natriuretic Peptide Total Protein Albumin TSH COVID-19 ([facility]) COVID-[facility] 11/04/20 11/04/20 11/05/20 16:28 20:11 07:21 WBC RBC Hgb Hct MCV MCH MCHC RDW Plt Count MPV Immature Gran % (Auto) Neut % (Auto) Lymph % (Auto) Metcalfe % (Auto) Eos % (Auto) Baso % (Auto) Lymph # (Auto) Metcalfe # (Auto) Eos # (Auto) Baso # (Auto) Abs Immat Gran (auto) Absolute Neuts (auto) Absolute Nucleated RBC Nucleated RBC % (auto) PT INR APTT Sodium Potassium Chloride Carbon Dioxide Anion Gap BUN Creatinine Estim Creat Clear Calc Estimated GFR POC Glucose 104 113 94 Random Glucose Calcium Magnesium Total Bilirubin Direct Bilirubin AST ALT Alkaline Phosphatase Troponin I High Sens B-Natriuretic Peptide Total Protein Albumin TSH COVID-19 ([facility]) COVID-19 Clin Com 11/05/20 11/05/20 07:57 10:34 WBC RBC Hgb Hct MCV MCH MCHC RDW Plt Count MPV Immature Gran % (Auto) Neut % (Auto) Lymph % (Auto) Metcalfe % (Auto) Eos % (Auto) Baso % (Auto) Lymph # (Auto) Metcalfe # (Auto) Eos # (Auto) Baso # (Auto) Abs Immat Gran (auto) Absolute Neuts (auto) Absolute Nucleated RBC Nucleated RBC % (auto) PT INR APTT Sodium 144 Potassium 4.3 Chloride 93 L Carbon Dioxide 39 H Anion Gap 16 BUN 15 Creatinine 1.28 Estim Creat Clear Calc 82.6 Estimated GFR 56 POC Glucose 124 H Random Glucose 103 Calcium 9.8 D Magnesium 1.9 Total Bilirubin Direct Bilirubin AST ALT Alkaline Phosphatase Troponin I High Sens B-Natriuretic Peptide Total Protein Albumin TSH COVID-19 ([facility]) COVID-19 Clin Com Airway Mallampati Class: III TM Dist: >3cm Neck ROM: Full Partial: Lower Loose/Missing/Broken Teeth: Yes (Poor dentition) Heart: Afib Lungs: NL Assessment and Plan Assessment Anesthesia Assessment: Anesthesia Plan Discussed and Chart Reviewed Final Anesthetic Review NPO: Yes ASA Class: IV Final Preanesthetic Review: No Changes in Pt Med Stat, Meds/Allgs Chart Reviewed, Consent Obtained/Reviewed and Anes Risks/Benef Reviewed Patient Risk: High Procedure Risk: Low Anesthetic Plan Anesthetic Plan: MAC: Disposition: Standard PACU
--- NOTE | 2020-11-05 11:08 | PC.NURSE ---
pt voided 400ml clear yellow urine in urinal
--- NOTE | 2020-11-05 11:29 | MHC.CM.PN ---
pt to be dcd today after cardio version.. dc plan [facility] no services
--- NOTE | 2020-11-05 11:30 | CA_ITS ---
Transesophageal Echocardiogram Patient (Last, First, Middle): Vishnu Gr A Gender: Male Date of : 1955 Age: 65 Procedure Date: 11/05/2020 Procedure Type: Transesophageal Echocardiogram Location: [facility] [place] Height: 185.42 cm Weight: kg Manager Dish: KATLYN Referring MD: Sergio Escalante MD Parts Clerk Plant Maintenance: Sergio Escalante MD Symptoms: Atrial fibrillation Conclusion: ??? After informed consent was obtained, patient was taken to the operating room. He was positioned appropriately. Once under anesthesia, the XIAO probe was placed without difficulty. The usual 2D, spectral Doppler as well as color Doppler images were obtained. Patient tolerated the procedure without any complications. ??? There is no evidence of a thrombus in the left atrial appendage. Findings Left Ventricle The left ventricular systolic function is severely decreased. The visually estimated ejection fraction is between 10-15%. Right Ventricle Normal right ventricular cavity size and systolic function. Atria Severe biatrial enlargement. There is no evidence of a thrombus in the left atrial appendage. There is no evidence of a patent foramen ovale. Left atrial appendage visualization was somewhat difficult but we were able to confirm that there were no clots. Acceptable velocities at the mouth of the appendage. Aortic Valve There is a normal trileaflet aortic valve. There is no aortic valve stenosis. There is no aortic valve regurgitation. Mitral Valve The mitral valve appears normal. There is mild to moderate mitral valve regurgitation. There is no mitral valve stenosis. Pulmonic Valve The pulmonic valve was not well visualized. Tricuspid Valve There is mild to moderate tricuspid valve regurgitation. Great Vessels Visualized portions of arch and descending thoracic aorta with only mild atherosclerotic plaque. Pericardium/Pleural There is a trivial pericardial effusion. Prior Study Comparison No significant change compared to prior study dated: 11/02/2020. Updated by Sergio Escalante on 02:41 PM with Status of Final Sergio Escalante MD electronically signed on 11/05/2020 2:41:27 PM with status of Final
[2020-11-05] MEDS: Amiodarone HCL 200 MG TABLET 400 MG PO ×2 (12:18→20:57)
--- NOTE | 2020-11-05 13:19 | P.PNCA_ITS ---
Subjective Subjective Date of Service: 11/05/20 Interval history: No new complaints. Good diuresis and has lost several litres. Review of Systems Review of Systems Yes all other systems are reviewed and are negative Cardiovascular: Reports as per HPI, Reports no additional cardiovascular complaints, Reports Abdominal Distension, Denies acrocyanosis, Denies cool extremities, Denies painful fingertips, Denies chest pain, Denies chest pain at rest, Denies diaphoresis, Denies syncope, Reports pedal edema, Denies irregular heart rhythm, Denies claudication, Denies leg edema, Denies lightheadedness, Den ies palpitations and Reports dyspnea Respiratory: Reports dyspnea Denies syncope Endocrine: Denies palpitations Physical Exam Vital Signs: Last Vital Signs Temp 97.2 F 11/05/20 12:00 Pulse 94 11/05/20 12:29 Resp 17 11/05/20 12:29 BP 125/74 11/05/20 12:29 Pulse Ox 97 11/05/20 12:29 Body Mass Index 41.1 Const General: cooperative, comfortable and no acute distress Orientation/consciousness: patient oriented x3 HENMT Other: Unremarkable Neck Neck: Yes normal visual inspection Chest Chest palpation & inspection: normal inspection of the chest Resp Auscultation: clear to auscultation bilaterally, no crackles and no wheezes Cardio Jugular venous distension: no JVD Palpation: normal PMI Heart sounds: S1 normal heart sound present, S2 normal heart sound present, no gallops, no murmurs and no rubs GI Palpation (GI): Soft to palpation and Ascites present Back/Spine/Pelvis Other: unremarkable Skin General skin exam: no rashes or lesions noted Neuro General: patient oriented x3 Extrem General: Yes edema (2+ edema) Psych Mental Status: mental status grossly normal Results Labs and Meds Result diagrams: 11/03/20 04:12 11/05/20 07:57 Lab results: Laboratory Results - last 24 hr 11/04/20 11/04/20 11/05/20 16:28 20:11 07:21 Sodium Potassium Chloride Carbon Dioxide Anion Gap BUN Creatinine Estim Creat Clear Calc Estimated GFR POC Glucose 104 113 94 Random Glucose Calcium Magnesium 11/05/20 11/05/20 07:57 10:34 Sodium 144 Potassium 4.3 Chloride 93 L Carbon Dioxide 39 H Anion Gap 16 BUN 15 Creatinine 1.28 Estim Creat Clear Calc 82.6 Estimated GFR 56 POC Glucose 124 H Random Glucose 103 Calcium 9.8 D Magnesium 1.9 Progress Note: A&P Assessment and plan (1) Acute systolic (congestive) heart failure: Status: Acute (2) Atrial fibrillation with rapid ventricular response: Status: Acute Assessment and Plan: We did a XIAO and cardioversion today. He is back in normal sinus rhythm but has PACs. Start oral amiodarone 400 mg b.i.d.. Over beta-blockers. Continue with anticoagulation. Continue with IV diuretics as he is still volume overloaded. If he goes back into atrial fibrillation again, then we can re-attempt in a few weeks after amiodarone loading. Otherwise once he is euvolemic, discharge planning. Fall Risk Details Current Medications: Current Medications Generic Name Dose Route Start Last Admin Trade Name Freq PRN Reason Stop Dose Admin Acetaminophen 650 mg 11/01/20 13:29 Acetaminophen 325 Mg Tablet PO Q6H PRN Pain, Mild (Pain Scale 1-3) Amiodarone HCl 400 mg 11/05/20 12:10 11/05/20 12:18 Amiodarone Hcl 200 Mg Tablet PO 400 mg BID RAMYA Administration Apixaban 5 mg 11/01/20 21:00 11/05/20 08:51 Apixaban 5 Mg Tablet PO 5 mg BID RAMYA Administration Furosemide 60 mg 11/02/20 15:00 11/05/20 08:51 Furosemide 40 Mg/4 Ml Vial IVPUSH 60 mg TID RAMYA Administration Protocol Insulin Human Lispro 0 unit 11/01/20 16:30 11/05/20 12:38 Insulin Lispro 100 Unit/Ml 3 Ml Vial SUBCUT Not Given QIDACHS RAMYA Protocol Metoprolol Succinate 50 mg 11/05/20 12:40 Metoprolol Succinate Er 50 Mg Tab.Er.24h PO DAILY RAMYA Protocol Multivitamins/Minerals 1 tab 11/02/20 09:00 11/05/20 08:50 Multivitamin With Minerals Tablet PO 1 tab DAILY RAMYA Administration Ondansetron HCl 4 mg 11/01/20 13:29 Ondansetron Hcl 4 Mg/2 Ml Vial IVPUSH Q8H PRN Nausea and Vomiting Pharmacy Consult 1 each 11/01/20 10:28 Consult Rx Perform Med Rec MISCELLANE ONCE PRN Consult order Polyethylene Glycol 17 gm 11/04/20 10:00 11/05/20 08:52 Polyethylene Glycol 3350 17 Gm Powd.Pack PO 17 gm DAILY RAMYA Administration Sodium Chloride 3 ml 11/01/20 16:00 11/05/20 08:54 0.9 % Sodium Chloride Flush 3 Ml Syringe IVFLUSH 3 ml QSHIFT RAMYA Administration Vitamin D 25 mcg 11/02/20 09:00 11/05/20 08:51 Cholecalciferol (Vitamin D3) 25 Mcg Tablet PO 25 mcg DAILY RAMYA Administration Time Spent With Patient Time: Total time spent is greater than 50% in coordination of care (as documented) at patient's floor/unit and/or counseling patient: Time with patient: 15 - 24 minutes
--- NOTE | 2020-11-05 13:21 | HO.CARDIVERS ---
Cardioversion Procedure Note Cardioversion Date of Procedure: 11/05/2020 Ordering Provider: Dr. Escalante Performing Provider: Dr. Escalante Indication for Procedure: Atrial fibrillation congestive heart failure Pre-Op Diagnosis: Atrial fibrillation with rapid rate Post-Op Diagnosis: Sinus rhythm Performed with Transesophageal Echo: Yes XIAO findings (if XIAO Performed): Dictated separately. No evidence of any left atrial appendage thrombus. History: Atrial fibrillation with congestive heart failure and hence decided on XIAO/cardioversion. Consent: Informed consent was obtained. Procedure: After informed consent was obtained, patient was taken to the OR. The patient was then positioned appropriately. XIAO was 1st completed. This showed no evidence of left atrial appendage thrombus. The cardioversion pads were placed in anteroposterior position. 120 joules of synchronized shock was administered. The rhythm converted from atrial fibrillation to sinus rhythm. Patient remained in sinus rhythm after the end of procedure. Complications: None Impression: Successful cardioversion from atrial fibrillation to sinus rhythm. Recommendations: Start amiodarone and beta-blockers. Continue anticoagulation.
[2020-11-05] MEDS: Metoprolol Succinate ER 50 MG TAB.ER.24H PO (14:00)
[2020-11-05 16:14] LABS: Glucose, Whole Blood 109 mg/dL (60-115)
[2020-11-05 20:08] LABS: Glucose, Whole Blood 151 mg/dL (60-115)
[2020-11-06] VITALS (7 sets, daily range): BP systolic 112–136; BP diastolic 67–92; PULSE 71–97; RESP 16–18; TEMP 36.6–36.8; O2SAT 95–98
[2020-11-06 06:31] LABS: Anion Gap 14 (12-20); Blood Urea Nitrogen 16 mg/dL (9-16); Calcium 9.3 mg/dL (8.4-10.2); Carbon Dioxide 39 mmol/L (22-29); Chloride 91 mmol/L (96-108); Creatinine Clr Calc Pharmacy 78.9; Estimated Glomerular Filt Rate 53; Glucose Random 149 mg/dL (60-115); Potassium 3.7 mmol/L (3.3-5.1); Sodium 140 mmol/L (135-145)
[2020-11-06 07:28] LABS: Glucose, Whole Blood 112 mg/dL (60-115)
[2020-11-06] MEDS: Furosemide 40 MG/4 ML VIAL 60 MG IVPUSH (08:51)
[2020-11-06] MEDS: Amiodarone HCL 200 MG TABLET 400 MG PO ×2 (08:52→21:01)
[2020-11-06] MEDS: Apixaban 5 MG TABLET PO ×2 (08:52→21:01)
[2020-11-06] MEDS: Cholecalciferol (Vitamin D3) 25 MCG TABLET PO (08:52)
[2020-11-06] MEDS: Metoprolol Succinate ER 50 MG TAB.ER.24H PO (08:52)
[2020-11-06] MEDS: 0.9 % Sodium Chloride Flush 3 ML SYRINGE IVFLUSH ×3 (08:53→21:02)
[2020-11-06] MEDS: polyethylene glycoL 3350 17 GM POWD.PACK PO (08:54)
--- NOTE | 2020-11-06 10:30 | HO.POSTANES ---
Post Anesthesia Evaluation Post Anesthesia Evaluation Vital Signs: Vital Signs Temp Pulse Resp BP Pulse Ox 11/06/20 08:52 97 117/67 11/06/20 07:54 98.1 F 97 18 117/67 96 11/06/20 03:55 98.0 F 84 18 112/68 98 11/05/20 23:31 98.8 F 80 18 111/65 96 Anesthesia: Monitored Mental Status: Awake Pain Control: Satisfactory Nausea/Vomiting: None Hydration: Adequate Anesthesia-Related Issues: No Anes. Related Issues
[2020-11-06 11:52] LABS: Glucose, Whole Blood 148 mg/dL (60-115)
--- NOTE | 2020-11-06 12:52 | HO.PM.IMPN ---
Subjective Subjective Date of Service: 11/06/20 <Rashmi Roldan NP - Last Filed: 11/06/20 14:07> 11/06/20 <Alverto Martin MD - Last Filed: 11/06/20 15:18> Interval History: Follow up CHF, AFIB, Feeling good, less swelling. No shortness of breath or palpitations. <Rashmi Roldan NP - Last Filed: 11/06/20 14:07> Physical Exam Vital Signs: Vital Signs: Last Vital Signs Temp 98.2 F 11/06/20 11:15 Pulse 71 11/06/20 11:15 Resp 18 11/06/20 11:15 BP 114/73 11/06/20 11:15 Pulse Ox 97 11/06/20 11:15 Body Mass Index 41.1 <Rashmi Roldan NP - Last Filed: 11/06/20 14:07> Appearing in no acute distress lung sounds are clear to auscultation heart regular rate rhythm, clear S1, S2 positive bowel sounds, abdomen is soft, nontender neuro patient is alert x3, no focal deficits <Rashmi Roldan NP - Last Filed: 11/06/20 14:07> Objective Data Current Medications Generic Name Dose Route Start Last Admin Trade Name Freq PRN Reason Stop Dose Admin Acetaminophen 650 mg 11/01/20 13:29 Acetaminophen 325 Mg Tablet PO Q6H PRN Pain, Mild (Pain Scale 1-3) Amiodarone HCl 400 mg 11/05/20 12:10 11/06/20 08:52 Amiodarone Hcl 200 Mg Tablet PO 400 mg BID RAMYA Administration Apixaban 5 mg 11/01/20 21:00 11/06/20 08:52 Apixaban 5 Mg Tablet PO 5 mg BID RAMYA Administration Furosemide 60 mg 11/02/20 15:00 11/06/20 08:51 Furosemide 40 Mg/4 Ml Vial IVPUSH 60 mg TID RAMYA Administration Protocol Insulin Human Lispro 0 unit 11/01/20 16:30 11/06/20 11:50 Insulin Lispro 100 Unit/Ml 3 Ml Vial SUBCUT Not Given QIDACHS RAMYA Protocol Metoprolol Succinate 50 mg 11/05/20 12:40 11/06/20 08:52 Metoprolol Succinate Er 50 Mg Tab.Er.24h PO 50 mg DAILY RAMYA Administration Protocol Multivitamins/Minerals 1 tab 11/02/20 09:00 11/06/20 08:52 Multivitamin With Minerals Tablet PO 1 tab DAILY RAMYA Administration Ondansetron HCl 4 mg 11/01/20 13:29 Ondansetron Hcl 4 Mg/2 Ml Vial IVPUSH Q8H PRN Nausea and Vomiting Pharmacy Consult 1 each 11/01/20 10:28 Consult Rx Perform Med Rec MISCELLANE ONCE PRN Consult order Polyethylene Glycol 17 gm 11/04/20 10:00 11/06/20 08:54 Polyethylene Glycol 3350 17 Gm Powd.Pack PO 17 gm DAILY RAMYA Administration Sodium Chloride 3 ml 11/01/20 16:00 11/06/20 08:53 0.9 % Sodium Chloride Flush 3 Ml Syringe IVFLUSH 3 ml QSHIFT RAMYA Administration Vitamin D 25 mcg 11/02/20 09:00 11/06/20 08:52 Cholecalciferol (Vitamin D3) 25 Mcg Tablet PO 25 mcg DAILY RAMYA Administration <Rashmi Roldan NP - Last Filed: 11/06/20 14:07> Labs CBC & Chem 7: : 11/03/20 04:12 11/06/20 05:31 <Rashmi Roldan NP - Last Filed: 11/06/20 14:07> Assessment and Plan (1) Acute systolic (congestive) heart failure: Status: Acute <Rashmi Roldan NP - Last Filed: 11/06/20 14:07> Assessment and Plan: This is a 65-year-old male who presented to the hospital with complaints of weight gain and progressive shortness of breath. He was diagnosed with A. Fib during a urgent care visit in the past month or so, but definitive duration of A. Fib is unknown. He is also in Acute CHF. Acute HFrEF. newly diagnosed, possibly tachycardia induced. Echo showing EF 10 to 15%, also has pulm HTN on echo. Diuresed well. -Weight today 227lbs -IV lasix TID. Will transition to oral diuretics for discharge -cardiology following A. Fib with RVR. overall rates improved. rates control drugs on hold per cardiology recs -successful XIAO cardioversion yesterday -continue Eliquis, amiodarone, metoprolol Diabetes . previously was diet controlled. A1C now >7 -sliding scale -dc on Metformin -diabetic education provided HTN -improved on metoprolol Morbid Obesity. BMI 41.1 -Diet and weight loss have been encouraged Mild Renal insuffiency. SCr 1.59 upon admission, decreased to 1.28 today -likely cardiorenal DVT pptx, Eliquis DISPO: Discharge tomorrow Attending: Dr. Martin <Rashmi Roldan NP - Last Filed: 11/06/20 14:07>
--- NOTE | 2020-11-06 13:04 | P.DS_ITS ---
DS: Providers Provider Date of Service: 11/07/20 Date of admission: 11/01/20 13:29 Date of discharge: 11/07/20 Primary care physician: Ernesto Turner MD Admitting clinician: Rashmi Roldan Attending physician on admission: Reggie Valles Consults: 11/01/20 13:35 Consult to Cardiology Routine Consulting Provider: Sergio Escalante Reason for consultation: new chf, afib rvr Has provider been notified: No 11/03/20 20:40 Consult to Cardiology Routine Consulting Provider: Sergio Escalante Reason for consultation: NSVT Attending physician on discharge: Alverto Martin Discharging clinician: Rashmi Roldan DS: Diagnosis Discharge Diagnosis (1) Type 2 diabetes mellitus with hyperglycemia: Status: Acute DS: Medications Discharge Medications Home Medications: Home Medications Medication Instructions Recorded Confirmed cholecalciferol (vitamin D3) 25 25 mcg PO DAILY 11/01/20 11/01/20 mcg (1,000 unit) capsule lactobacillus combination no.9 4 4,000 mmu cells PO DAILY 11/01/20 11/01/20 billion cell capsule blqlyxyfpmxq-sxcirxkw-zjjxbf tablet 1 tab PO DAILY 11/01/20 11/01/20 psyllium husk 3.4 gram/5.4 gram 1 tbsp PO DAILY 11/01/20 11/01/20 oral powder DS: Summary Hospital Course Hospital Course: HP as per admitting provider 65-year-old man, presented to the ER with complaints of worsening shortness of breath and swelling. He reports the shortness of breath started around July. He went to an urgent care clinic approximately a month ago and was told that he had atrial fibrillation. Unfortunately, the patient did not follow up with his primary care provider after that. He reported since then he has been developing more swelling to his lower extremities and having even more difficulty especially with climbing stairs and lying flat with shortness of breath. He denied chest pain, nausea, vomiting, or diarrhea. He reported a loss of appetite more recently. In the ER, chest x-ray noted no consolidation or effusion. BNP was elevated at 1417, troponin 47.8, TSH 1.62, creatinine 1.59, slightly elevated from baseline. Vital signs; his heart rate was up to 130s. Blood pressure stable. He was started on IV diltiazem drip, given a dose of IV Lasix. He will be admitted for further management and treatment of acute atrial fibrillation with rapid ventricular response and acute congestive heart failure . Heart failure with reduced ejection fraction. Patient reports some increased shortness of breath over the last several months with swelling and weight gain of at least 50 lb. He was seen by his primary care provider just prior to admission He reports that he was weighed in the office and was found to be at 303 lb. He reports his dry weight being between 240 and 260 lb. Upon admission patient was treated with IV Lasix. He was seen and evaluated by Cardiology. Echocardiogram showed EF of 10-15% with severely decreased left ventricular systolic function and severe biatrial enlargement. He was started on IV Lasix 60 mg 3 times a day, beta-raffaele. He has diuresed well over the course of his admission and is now -20 L and euvolemic. He will be discharged with oral Lasix and lisinopril. He is encouraged to check daily weights, follow a low-sodium diet and follow-up with research hydrologist as outpatient. New onset atrial fibrillation. Developed rapid ventricular response during admission. Symptoms have been ongoing for several months as patient has noted shortness of breath since July. During the early days of his admission he continued to have significantly elevated heart rate. He was initially placed on IV Cardizem drip. The Cardizem drip was subsequently stopped and patient was loaded with digoxin, started on beta-raffaele and successful cardioversion was done on 11/05/2020. Patient has remained in normal sinus rhythm and started on amiodarone. He will continue this along with beta-raffaele and Eliquis as outpatient and follow up with Cardiology. Diabetes mellitus. Elevated blood glucose and hemoglobin A1c noted to be elevated in 2018 with no subsequent treatment. He was treated with insulin sliding scale and diabetic diet. He will be sent home with metformin and a new glucometer to check blood sugars daily. He should follow-up with his primary care provider for further instructions moving forward. He was also advised to modify his diet to decrease the amount of sugar and carbohydrates. Acute kidney disease. Initial creatinine 1.59 trended down to 1.34. All likely secondary to congestion from congestive heart failure. Resolved at this time. Attending: Dr. Martin Time Spent with Patient Time attestation: Total time spent providing and/or coordinating discharge services: Discharge coordination time: Greater than 30 minutes Physical Exam Vital Signs: Vital Signs: Last Vital Signs Temp 98.2 F 11/06/20 11:15 Pulse 71 11/06/20 11:15 Resp 18 11/06/20 11:15 BP 114/73 11/06/20 11:15 Pulse Ox 97 11/06/20 11:15 Body Mass Index 41.1 Appearing in no acute distress head is normocephalic atraumatic eyes pupils are PERRLA sclera is anicteric mouth throat mucous membranes are intact and moist neck is supple no lymphadenopathy, no JVD noted lung sounds are clear to auscultation heart regular rate rhythm, clear S1, S2 positive bowel sounds, abdomen is soft, nontender neuro patient is alert x3, no focal deficits DS: Data Data Completed and Pending Labs on day of discharge: Laboratory Results - last 24 hr 11/05/20 11/05/20 11/06/20 16:06 20:04 05:31 Sodium 140 Potassium 3.7 Chloride 91 L Carbon Dioxide 39 H Anion Gap 14 BUN 16 Creatinine 1.34 Estim Creat Clear Calc 78.9 Estimated GFR 53 POC Glucose 109 151 H Random Glucose 149 H D Calcium 9.3 11/06/20 11/06/20 07:21 11:20 Sodium Potassium Chloride Carbon Dioxide Anion Gap BUN Creatinine Estim Creat Clear Calc Estimated GFR POC Glucose 112 148 H Random Glucose Calcium Discharge Plan Discharge Anticipated Discharge Date/Time: 11/07/20 08:08 Patient Disposition: Home, Self-Care Discharge Diagnosis: Heart failure with reduced ejection fracture New onset Atrial fibrillation Referrals: Po,Ernesto Bashir MD [Primary Care Provider] - 1 Week Discharge Medications: New Eliquis 5 mg Tablet 5 mg PO BID Qty: 60 RF: 0 lisinopril 2.5 mg Tablet 2.5 mg PO DAILY Qty: 30 RF: 0 amiodarone 200 mg tablet 200 mg PO DAILY Qty: 66 RF: 0 furosemide 40 mg Tablet 80 mg PO BID@0900,1800 Qty: 120 RF: 0 metoprolol succinate 50 mg Tablet Extended Release 24 Hr 50 mg PO DAILY Qty: 30 RF: 0 (DME) blood-glucose meter [FreeStyle Lite Meter] Kit See Rx Instructions .ROUTE .MEDSUPPLY Qty: 1 RF: 0 (DME) FreeStyle Lite Strips Strip See Rx Instructions .ROUTE .MEDSUPPLY Qty: 100 RF: 0 alcohol swabs [Alcohol Prep Pads] Pads, Medicated 1 pad topical TID Qty: 200 RF: 0 (DME) lancets [FreeStyle Lancets] 28 gauge misc See Rx Instructions .ROUTE .MEDSUPPLY Qty: 100 RF: 0 metformin 500 mg tablet 500 mg PO BID Qty: 60 RF: 0 Continued xdaeglyigdya-hjgofjev-luynlt Tablet 1 tab PO DAILY RF: 0 cholecalciferol (vitamin D3) 25 mcg (1,000 unit) capsule 25 mcg PO DAILY RF: 0 Adult 50 Plus Probiotic 4 billion cell capsule 4,000 mmu cells PO DAILY RF: 0 Metamucil 3.4 gram/5.4 gram powder 1 tbsp PO DAILY RF: 0 Discharge Orders: Discharge Order (Routine); Ordered 11/07/20 Ordered By: Rashmi Roldan Diet: advance to usual diet Activity on Discharge: As tolerated Stand Alone Forms: Patient Portal Discharge page Care Plan Goals: Resolution of heart failure symptoms Health Concerns: Heart failure with reduced ejection fraction New onset atrial fibrillation Plan of Treatment: Follow up with research hydrologist Dr. Dhillon [phone] Follow up with primary care provider as needed Take medications as prescribed. New medications include Lisinopril, Amiodarone, Lasix, Eliquis, metformin and metoprolol Check your blood sugars three times daily before meals, then follow up with [facility] provider for further instructions. Take Amiodarone 400 mg twice daily for 12 days then take 200 mg daily Check your weight daily and watch for increasing swelling to your legs Assessment: See discharge summary Discharge Date/Time: 11/07/20 12:09
--- NOTE | 2020-11-06 14:55 | P.PNCA_ITS ---
Subjective Subjective Date of Service: 11/06/20 Interval history: Status post cardioversion yesterday. He is in sinus rhythm. He has no symptoms right now. Review of Systems Review of Systems No chest pain or shortness of breath. Yes all other systems are reviewed and are negative Physical Exam Vital Signs: Last Vital Signs Temp 98.2 F 11/06/20 11:15 Pulse 71 11/06/20 11:15 Resp 18 11/06/20 11:15 BP 114/73 11/06/20 11:15 Pulse Ox 97 11/06/20 11:15 Body Mass Index 41.1 GENERAL APPEARANCE: in no acute distress, well developed, well nourished. HEENT: unremarkable. HEAD: normocephalic, atraumatic. NECK/THYROID: no carotid bruit, no jugular venous distention. SKIN: no suspicious lesions, warm and dry. HEART: no murmurs, regular rate and rhythm, S1, S2 normal. LUNGS: clear to auscultation bilaterally. ABDOMEN: normal, bowel sounds present, soft, nontender, nondistended. EXTREMITIES: no clubbing, cyanosis, or edema. PERIPHERAL PULSES: equal. NEUROLOGIC: nonfocal, alert and oriented. PSYCH: mood/affect full range. Results Labs and Meds Result diagrams: 11/03/20 04:12 11/06/20 05:31 Lab results: Laboratory Results - last 24 hr 11/05/20 11/05/20 11/06/20 16:06 20:04 05:31 Sodium 140 Potassium 3.7 Chloride 91 L Carbon Dioxide 39 H Anion Gap 14 BUN 16 Creatinine 1.34 Estim Creat Clear Calc 78.9 Estimated GFR 53 POC Glucose 109 151 H Random Glucose 149 H D Calcium 9.3 11/06/20 11/06/20 07:21 11:20 Sodium Potassium Chloride Carbon Dioxide Anion Gap BUN Creatinine Estim Creat Clear Calc Estimated GFR POC Glucose 112 148 H Random Glucose Calcium Progress Note: A&P Assessment and plan (1) Acute systolic (congestive) heart failure: Status: Acute (2) Atrial fibrillation with rapid ventricular response: Status: Acute Assessment and Plan: Pleasant 65-year-old gentleman presented for acute systolic heart failure. He was in AFib with RVR. He has been cardioverted and started on amiodarone 400 mg twice a day. I think he should stay on 400 mg twice a day of amiodarone for 2 weeks and then he can be changed to 200 mg once a day. He is a 60 mg 3 times a day IV Lasix. He looks euvolemic. I think we can stop the IV diuretics and start 80 mg p.o. b.i.d. furosemide. Please add 2.5 mg lisinopril. Thank you for allowing me to participate in the care of your patient. Please feel free to contact me if you have any questions. Fall Risk Details Current Medications: Current Medications Generic Name Dose Route Start Last Admin Trade Name Freq PRN Reason Stop Dose Admin Acetaminophen 650 mg 11/01/20 13:29 Acetaminophen 325 Mg Tablet PO Q6H PRN Pain, Mild (Pain Scale 1-3) Amiodarone HCl 400 mg 11/05/20 12:10 11/06/20 08:52 Amiodarone Hcl 200 Mg Tablet PO 400 mg BID RAMYA Administration Apixaban 5 mg 11/01/20 21:00 11/06/20 08:52 Apixaban 5 Mg Tablet PO 5 mg BID RAMYA Administration Furosemide 60 mg 11/02/20 15:00 11/06/20 08:51 Furosemide 40 Mg/4 Ml Vial IVPUSH 60 mg TID RAMYA Administration Protocol Insulin Human Lispro 0 unit 11/01/20 16:30 11/06/20 11:50 Insulin Lispro 100 Unit/Ml 3 Ml Vial SUBCUT Not Given QIDACHS [facility] Protocol Metoprolol Succinate 50 mg 11/05/20 12:40 11/06/20 08:52 Metoprolol Succinate Er 50 Mg Tab.Er.24h PO 50 mg DAILY RAMYA Administration Protocol Multivitamins/Minerals 1 tab 11/02/20 09:00 11/06/20 08:52 Multivitamin With Minerals Tablet PO 1 tab DAILY RAYMA Administration Ondansetron HCl 4 mg 11/01/20 13:29 Ondansetron Hcl 4 Mg/2 Ml Vial IVPUSH Q8H PRN Nausea and Vomiting Pharmacy Consult 1 each 11/01/20 10:28 Consult Rx Perform Med Rec MISCELLANE ONCE PRN Consult order Polyethylene Glycol 17 gm 11/04/20 10:00 11/06/20 08:54 Polyethylene Glycol 3350 17 Gm Powd.Pack PO 17 gm DAILY RAMYA Administration Sodium Chloride 3 ml 11/01/20 16:00 11/06/20 08:53 0.9 % Sodium Chloride Flush 3 Ml Syringe IVFLUSH 3 ml QSHIFT RAMYA Administration Vitamin D 25 mcg 11/02/20 09:00 11/06/20 08:52 Cholecalciferol (Vitamin D3) 25 Mcg Tablet PO 25 mcg DAILY RAMYA Administration Time Spent With Patient Time: Total time spent is greater than 50% in coordination of care (as documented) at patient's floor/unit and/or counseling patient: Time with patient: 15 - 24 minutes
[2020-11-06 16:16] LABS: Glucose, Whole Blood 127 mg/dL (60-115)
[2020-11-06] MEDS: Furosemide 40 MG TABLET 80 MG PO (18:10)
[2020-11-06 20:06] LABS: Glucose, Whole Blood 129 mg/dL (60-115)
[2020-11-07] VITALS: BP 121/60; PULSE 78; RESP 18; TEMP 36.7; O2SAT 99
[2020-11-07 04:00] VITALS: BP 125/78; PULSE 65; RESP 18; TEMP 36.6; O2SAT 97
[2020-11-07 06:00] VITALS: BMI 30.2
[2020-11-07 07:28] LABS: B Type Natriuretic Peptide 1106 pg/mL (<100)
[2020-11-07 07:36] LABS: Glucose, Whole Blood 108 mg/dL (60-115)
[2020-11-07 08:00] VITALS: BP 119/83; PULSE 68; RESP 18; TEMP 36.1; O2SAT 98
[2020-11-07] MEDS: 0.9 % Sodium Chloride Flush 3 ML SYRINGE IVFLUSH (08:30)
[2020-11-07] MEDS: polyethylene glycoL 3350 17 GM POWD.PACK PO (08:55)
[2020-11-07] MEDS: Amiodarone HCL 200 MG TABLET 400 MG PO (08:56)
[2020-11-07] MEDS: Cholecalciferol (Vitamin D3) 25 MCG TABLET PO (08:56)
[2020-11-07] MEDS: Apixaban 5 MG TABLET PO (08:56)
[2020-11-07] MEDS: Furosemide 40 MG TABLET 80 MG PO (08:57)
[2020-11-07] MEDS: Metoprolol Succinate ER 50 MG TAB.ER.24H PO (08:57)
[2020-11-07] MEDS: lisinopriL 2.5 MG TABLET PO (08:57)
--- NOTE | 2020-11-07 11:33 | MHC.CM.PN ---
D/C order for home, self care, no services ordered by . CM acknowledged.
--- NOTE | 2020-11-07 12:02 | P.PNCA_ITS ---
Subjective Subjective Date of Service: 11/07/20 Interval history: stable. Doing wel Physical Exam Vital Signs: Last Vital Signs Temp 97 F 11/07/20 08:00 Pulse 68 11/07/20 08:00 Resp 18 11/07/20 08:00 BP 119/83 11/07/20 08:00 Pulse Ox 98 11/07/20 08:00 Body Mass Index 30.2 GENERAL APPEARANCE: in no acute distress, well developed, well nourished. HEENT: unremarkable. HEAD: normocephalic, atraumatic. NECK/THYROID: no carotid bruit, no jugular venous distention. SKIN: no suspicious lesions, warm and dry. HEART: no murmurs, regular rate and rhythm, S1, S2 normal. LUNGS: clear to auscultation bilaterally. ABDOMEN: normal, bowel sounds present, soft, nontender, nondistended. EXTREMITIES: no clubbing, cyanosis, or edema. PERIPHERAL PULSES: equal. NEUROLOGIC: nonfocal, alert and oriented. PSYCH: mood/affect full range. Results Labs and Meds Result diagrams: 11/03/20 04:12 11/06/20 05:31 Lab results: Laboratory Results - last 24 hr 11/06/20 11/06/20 11/07/20 16:11 19:55 06:02 POC Glucose 127 H 129 H B-Natriuretic Peptide 1106 H 11/07/20 07:24 POC Glucose 108 B-Natriuretic Peptide Progress Note: A&P Assessment and plan (1) Acute systolic (congestive) heart failure: Status: Acute Assessment and Plan: 65-year-old she gentleman with new onset systolic heart failure. He underwent cardioversion for AFib with RVR. He is on amiodarone 400 mg twice a day. This should be decreased to 200 mg in 2 weeks. Continue Eliquis. Clinical euvolemic. He should go on 80 mg p.o. b.i.d. Lasix. Follow-up with Dr. Escalante. Thank you for allowing me to participate in the care of your patient. Please feel free to contact me if you have any questions. Fall Risk Details Current Medications: Current Medications Generic Name Dose Route Start Last Admin Trade Name Freq PRN Reason Stop Dose Admin Acetaminophen 650 mg 11/01/20 13:29 Acetaminophen 325 Mg Tablet PO Q6H PRN Pain, Mild (Pain Scale 1-3) Amiodarone HCl 400 mg 11/05/20 12:10 11/07/20 08:56 Amiodarone Hcl 200 Mg Tablet PO 400 mg BID RAMYA Administration Apixaban 5 mg 11/01/20 21:00 11/07/20 08:56 Apixaban 5 Mg Tablet PO 5 mg BID RAMYA Administration Furosemide 80 mg 11/06/20 18:00 11/07/20 08:57 Furosemide 40 Mg Tablet PO 80 mg BID@0900,1800 [facility] Administration Protocol Insulin Human Lispro 0 unit 11/01/20 16:30 11/07/20 08:30 Insulin Lispro 100 Unit/Ml 3 Ml Vial SUBCUT Not Given QIDACHS [facility] Protocol Lisinopril 2.5 mg 11/07/20 09:00 11/07/20 08:57 Lisinopril 2.5 Mg Tablet PO 2.5 mg DAILY [facility] Administration Protocol Metoprolol Succinate 50 mg 11/05/20 12:40 11/07/20 08:57 Metoprolol Succinate Er 50 Mg Tab.Er.24h PO 50 mg DAILY [facility] Administration Protocol Multivitamins/Minerals 1 tab 11/02/20 09:00 11/07/20 08:56 Multivitamin With Minerals Tablet PO 1 tab DAILY [facility] Administration Ondansetron HCl 4 mg 11/01/20 13:29 Ondansetron Hcl 4 Mg/2 Ml Vial IVPUSH Q8H PRN Nausea and Vomiting Pharmacy Consult 1 each 11/01/20 10:28 Consult Rx Perform Med Rec MISCELLANE ONCE PRN Consult order Polyethylene Glycol 17 gm 11/04/20 10:00 11/07/20 08:55 Polyethylene Glycol 3350 17 Gm Powd.Pack PO 17 gm DAILY RAMYA Administration Sodium Chloride 3 ml 11/01/20 16:00 11/07/20 08:30 0.9 % Sodium Chloride Flush 3 Ml Syringe IVFLUSH 3 ml QSHIFT [facility] Administration Vitamin D 25 mcg 11/02/20 09:00 11/07/20 08:56 Cholecalciferol (Vitamin D3) 25 Mcg Tablet PO 25 mcg DAILY RAMYA Administration Time Spent With Patient Time: Total time spent is greater than 50% in coordination of care (as documented) at patient's floor/unit and/or counseling patient: Time with patient: less than 15 minutes
[2020-11-08 03:24] LABS: Estimated Average Glucose 148 mg/dL; Hemoglobin A1c % 6.8 %
== END 2020-11-07 12:09 | disposition home or self-care (01) | DRG 194 ==
LOC: HO.ED 12:12 → HO.EDOVER 13:40 → HO.IMC 11-02 16:32
PROVIDERS: Hospitalist; Internal Medicine; Nurse Practitioner Acute Care; Physician Assistant Medical; Admitting Provider Family Medicine; Emergency Provider Emergency Medicine; PCP Internal Medicine; Visit Provider Hospitalist
PROC: 5A2204Z Restoration of Cardiac Rhythm, Single (ICD-10-PCS; principal; 2020-11-05 11:30)
DX: I11.0 Hypertensive heart disease with heart failure (principal); N17.9 Acute kidney failure, unspecified; I48.91 Unspecified atrial fibrillation; I50.21 Acute systolic (congestive) heart failure; I47.1 Supraventricular tachycardia; E11.9 Type 2 diabetes mellitus without complications; Z68.41 Body mass index [BMI] 40.0-44.9, adult; E66.01 Morbid (severe) obesity due to excess calories; Z20.822 Contact with and (suspected) exposure to COVID-19; Z79.01 Long term (current) use of anticoagulants; Z79.84 Long term (current) use of oral hypoglycemic drugs; Z79.899 Other long term (current) drug therapy
CPT/HCPCS: 36415; 71045; 80048; 80076; 82947; 83036; 83735; 83880; 84443; 84484; 85025; 85610; 85730; 87635; 92960; 93005; 93306; 93312; 96374; 96375; 99285; 99291; J1160; J1940; J2370; J3010; J3475

== ENCOUNTER → 2020-11-24 12:44 | Outpatient (BNVA) | payer OTHER, SELFPAY | PROVIDERS: PCP Internal Medicine; Referring Provider Internal Medicine; Visit Provider Internal Medicine | DX: I50.22 Chronic systolic (congestive) heart failure (principal); I48.0 Paroxysmal atrial fibrillation; I10 Essential (primary) hypertension; Z51.81 Encounter for therapeutic drug level monitoring; Z79.899 Other long term (current) drug therapy; E11.8 Type 2 diabetes mellitus with unspecified complications | CPT/HCPCS: 93005 ==

== ENCOUNTER → 2021-01-14 12:36 | Outpatient (REF) | payer OTHER, SELFPAY ==
--- NOTE | 2021-01-14 12:45 | CA_ITS ---
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 - Normal right ventricular cavity size and systolic function. Findings Left Ventricle Normal left ventricular size and systolic function. There is mildly increased left ventricular wall thickness. The visually estimated ejection fraction is between 55-60%. There is no evidence of regional wall motion abnormalities. Abnormal diastolic function is noted. Spectral Doppler is indicative of an impaired relaxation filling pattern. E/E prime ratio is between 8 and 15 consistent with indeterminate filling pressures. Right Ventricle Normal right ventricular cavity size and systolic function. Tricuspid Valve Normal tricuspid valve structure and function. There is trace tricuspid valve regurgitation. Venous The inferior vena cava is normal in size and collapses greater than 50% with inspiration. Pericardium/Pleural There is no evidence of pericardial effusion. Prior Study Comparison Significant changes compared to prior study dated: 11/02/2020. LVEF has improved to normal. Updated in Other Vendor System with Status of Final Miko Dhillon MD electronically signed on 01/16/2021 8:33:33 PM with status of Final
[2021-01-14 14:00] LABS: MANUAL DIFF FLAG NO
[2021-01-14 14:15] LABS: Basophils Absolute Auto 0.1 X10*3/uL (0.0-0.2); Basophils Percent Auto 0.9 % (0-2); Eosinophils Absolute Auto 1.1 X10*3/uL (0.0-0.4); Eosinophils Percent Auto 12.5 % (0-4); Hematocrit 40.9 % (42-52); Hemoglobin 13.5 g/dl (14.0-18.0); Imm Gran Abs Auto 0.02 X10*3/uL (0.00-0.03); Imm Gran Pct Auto 0.2 % (0.0-0.4); Lymphocytes Absolute Auto 3.8 X10*3/uL (1.2-4.9); Lymphocytes Percent Auto 41.6 % (20-40); Mean Corpuscular Hemoglobin 28.7 pg (27.0-33.0); Mean Platelet Volume 10.8 fL (9.4-12.4); Monocytes Absolute Auto 0.6 X10*3/uL (0.1-1.2); Monocytes Percent Auto 6.9 % (2-11); Neutrophils Absolute Auto 3.5 X10*3/uL (2.0-8.3); Neutrophils Percent Auto 37.9 % (45-73); Platelet Count 226 X10*3/uL (160-400); Red Cell Distribution Width 16.9 % (11.0-16.0); White Blood Count 9.1 X10*3/uL (4.8-10.8)
[2021-01-14 14:33] LABS: Alanine Aminotransferase 17 U/L (0-40); Albumin Level 4.1 g/dL (3.5-5.0); Alkaline Phosphatase 60 U/L (39-117); Anion Gap 11 (12-20); Aspartate Amino Transferase 21 U/L (5-37); Bilirubin Total 0.3 mg/dL (0.0-1.0); Blood Urea Nitrogen 20 mg/dL (9-16); Calcium 9.4 mg/dL (8.4-10.2); Carbon Dioxide 26 mmol/L (22-29); Chloride 108 mmol/L (96-108); Cholesterol 166 mg/dL; Estimated Glomerular Filt Rate > 60; Glucose Random 126 mg/dL (60-115); HDL Cholesterol 55 mg/dL; LDL Cholesterol Calculated 89 mg/dl; Potassium 4.7 mmol/L (3.3-5.1); Sodium 140 mmol/L (135-145); Total Protein 6.9 g/dL (6.5-8.0); Triglycerides 113 mg/dL
[2021-01-14 14:38] LABS: B Type Natriuretic Peptide 156 pg/mL (<100)
[2021-01-14 14:56] LABS: Free T4 (Free Thyroxine) 0.93 ng/dL (0.71-1.85); Thyroid Stimulating Hormone 1.23 uIU/mL (0.32-4.0); Vitamin D 25-OH Total 32.9 ng/mL (>30)
[2021-01-14 15:01] LABS: Microalbum/Creatinine Ratio Ur 133.2 ug/mg cr
[2021-01-14 15:37] LABS: Folate 12.9 ng/mL (> or = 4.0); Vitamin B12 1085 pg/mL (200-900)
== END ==
LOC: HO.CARD 12:36
PROVIDERS: Absent Provider Internal Medicine; PCP Internal Medicine; Visit Provider Internal Medicine
DX: I50.22 Chronic systolic (congestive) heart failure (principal); E11.65 Type 2 diabetes mellitus with hyperglycemia; E78.00 Pure hypercholesterolemia, unspecified; E55.9 Vitamin D deficiency, unspecified
CPT/HCPCS: 36415; 80053; 80061; 82043; 82306; 82607; 82746; 83880; 84439; 84443; 85025; 93308

== ENCOUNTER → 2021-03-14 09:58 | Outpatient (BNVA) | payer OTHER, SELFPAY | PROVIDERS: PCP Internal Medicine; Referring Provider Internal Medicine; Visit Provider Internal Medicine ==

== ENCOUNTER → 2022-03-22 09:16 | Outpatient (REF) | payer OTHER, SELFPAY ==
--- NOTE | 2022-03-22 09:23 | CA_ITS ---
Transthoracic Echocardiogram Patient (Last, First, Middle): Vishnu Gr A Gender: Male Date of : 1955 Age: 66 Procedure Date: 03/22/2022 Procedure Type: Transthoracic Echocardiogram Location: OP Height: 182.88 cm Weight: 108.86 kg BSA: 2.30 m2 Heart Rate: bpm BP: 135 / 90 mmHg Associate Media Director: TO Referring MD: Ernesto Turner MD X Ray Developer: Miko Dhillon MD Symptoms: I48.0 - Paroxysmal atrial fibrillation Study Quality: Fair ECG Rhythm: Sinus Conclusions: - 1. Mildly dilated left ventricle with LVEF of 55-60% 2. Moderately dilated left atrium 3. Trivial aortic regurgitation 4. Normal RV systolic pressure 5. Mildly dilated ascending aorta at 4 cm 6. No pericardial effusion Findings Left Ventricle Mildly increased left ventricular cavity size. There is normal left ventricular wall thickness. The left ventricular systolic function is normal. The visually estimated ejection fraction is between 55-60%. Spectral Doppler is indicative of an impaired relaxation filling pattern. E/E prime ratio is between 8 and 15 consistent with indeterminate filling pressures. Right Ventricle Normal right ventricular cavity size and systolic function. Atria The left atrium is moderately dilated. There is a suggestion of flow across the interatrial septum, [id number] suggestive of PFO. The right atrium is normal in size. Aortic Valve Normal aortic valve structure and function. There is no aortic valve stenosis. There is trace (trivial) aortic valve regurgitation. Mitral Valve There is mild anterior and posterior mitral leaflet thickening. There is moderate mitral annular calcification. There is trace mitral valve regurgitation. There is no mitral valve stenosis. Pulmonic Valve The pulmonic valve was not well visualized. Tricuspid Valve Likely normal tricuspid valve structure and function. There is trace tricuspid valve regurgitation. The right ventricular systolic pressure is normal. The right ventricular systolic pressure is 21 mmHg. Normal right atrial pressure. There is no evidence of pulmonary hypertension. Great Vessels The pulmonary artery was not well visualized. There is mild dilatation of the ascending aorta measuring 4.00 cm. Venous The inferior vena cava is normal in size and collapses greater than 50% with inspiration. Pericardium/Pleural There is no evidence of pericardial effusion. Prior Study Comparison Changes noted compared to prior study dated: 01/14/2021. LV cavity is mildly dilated. Ascending aorta is mildly dilated Measurements 2D Linear Measurements IVSd: 1.15 0.6-0.9/0.6-1.0 cm LVIDd: 6.19 3.9-5.3/4.2-5.9 cm LVIDd Index: 2.69 2.4-3.2/2.2-3.1 cm/m2 LVIDs: 4.59 2.0-3.6 cm LVPWd: 1.05 0.7-1.1 cm LA Diam: 5.00 2.7-3.8/3.0-4.0 cm LAIDs Index: 2.17 1.5-2.3 cm/m2 LV Mass: 367.55 67-162/88-224 g LV Mass Index: 159.80 43-95/49-115 g/m2 LVOT Diam: 2.50 3.0+(-)1.3 cm 2D Systolic Function EF 4C: 46.10 >55% EF 2C: 50.10 >55% Mitral Valve MV Pk E: 0.61 MV PK A: 0.47 MV Decel Time: 304.00 E/A: 1.30 E'Lateral: 10.20 E'Medial: 5.11 E/E' Med: 12.00 E/E' Lat: 6.00 PHT: 89.00 MVA PHT: 2.47 Decel Gaston: 2.02 Aortic Valve AoV Pk Raulito: 1.33 AoV Mn Raulito: 0.93 AoV VTI: 0.28 AoV Pk Grad: 7.00 Aov Mn Grad: 4.00 EL Cont.VTI: 2.96 LVOT LVOT Pk Raulito: 0.76 LVOT Mn Raulito: 0.47 LVOT VTI: 0.17 LVOT Pk Grad: 2.00 LVOT Mn Grad: 1.00 LVOT Diam: 2.50 LVOT Area: 4.91 Diastolic Function MV Pk E: 0.61 MV Pk A: 0.47 E/A: 1.30 E'Medial: 5.11 E/E' Med: 12.00 E' Laterial: 10.20 E/E' Lat: 6.00 Right Ventricle TAPSE (mm): 21.70 TVS' Raulito: 11.90 Tricuspid Valve TR Pk Raulito: 2.13 TR Pk Grad: 18.00 RA Press: 3.00 RVSP: 21.00 Great Vessels Aorta Sinus of Valsalva: 3.99 2.0-3.[address] [place]: 3.09 1.7-3.4 cm Ao Asc: 4.00 2.1-3.4 cm Updated in Other Vendor System with Status of Final Manuel Carbajal MD electronically signed on 03/23/2022 4:46:07 PM with status of Final
[2022-03-22 09:34] LABS: MANUAL DIFF FLAG NO
[2022-03-22 10:03] LABS: Basophils Absolute Auto 0.1 X10*3/uL (0.0-0.2); Basophils Percent Auto 0.7 % (0-2); Eosinophils Absolute Auto 0.2 X10*3/uL (0.0-0.4); Eosinophils Percent Auto 2.4 % (0-4); Hematocrit 42.7 % (42.0-52.0); Hemoglobin 14.3 g/dl (14.0-18.0); Imm Gran Abs Auto 0.06 X10*3/uL (0.00-0.03); Imm Gran Pct Auto 0.7 % (0.0-0.4); Immature Retic Fraction 16.5 % (2.3-13.4); Lymphocytes Absolute Auto 3.5 X10*3/uL (1.2-4.9); Lymphocytes Percent Auto 39.3 % (20-40); Mean Corpuscular HGB Conc 33.5 g/dl (31.0-36.0); Mean Corpuscular Hemoglobin 29.6 pg (27.0-33.0); Mean Corpuscular Volume 88.4 fL (80.0-98.0); Monocytes Absolute Auto 0.7 X10*3/uL (0.1-1.2); Monocytes Percent Auto 7.8 % (2-11); Neutrophils Absolute Auto 4.4 x10*3/uL (2.0-8.3); Neutrophils Percent Auto 49.1 % (45-73); Platelet Count 226 X10*3/uL (160-400); Red Blood Count 4.83 X10*6/uL (4.60-5.80); Red Cell Distribution Width 12.8 % (11.0-16.0); Reticulocyte Percent 1.5 % (0.5-1.8); Reticulocytes Absolute 0.071 X10*6/uL (0.026-0.095); White Blood Count 8.9 X10*3/uL (4.8-10.8)
[2022-03-22 10:28] LABS: Alanine Aminotransferase 20 U/L (0-40); Albumin Level 4.5 g/dL (3.5-5.0); Alkaline Phosphatase 69 U/L (39-117); Anion Gap 18 (12-20); Aspartate Amino Transferase 22 U/L (5-37); Bilirubin Total 0.3 mg/dL (0.0-1.0); Blood Urea Nitrogen 37 mg/dL (9-16); Calcium 9.3 mg/dL (8.4-10.2); Carbon Dioxide 24 mmol/L (22-29); Chloride 103 mmol/L (96-108); Cholesterol 230 mg/dL; Estimated Glomerular Filt Rate 34; Glucose Random 142 mg/dL (60-115); HDL Cholesterol 42 mg/dL; Iron 102 mcg/dL (45-160); LDL Cholesterol Calculated 130 mg/dl; Percent Iron Saturation 32 % (15-50); Potassium 5.5 mmol/L (3.3-5.1); Sodium 139 mmol/L (135-145); Total Iron Binding Capacity 315 mcg/dL (228-428); Total Protein 7.6 g/dL (6.5-8.0); Triglycerides 290 mg/dL; Unsaturated Iron Binding 213 ug/dL
[2022-03-22 10:31] LABS: B Type Natriuretic Peptide 77 pg/mL (<100)
[2022-03-22 10:55] LABS: Ferritin 226 ng/mL (20-250); Free T4 (Free Thyroxine) 1.08 ng/dL (0.71-1.85); Prostate Specific Antigen Scr 1.76 ng/mL (<0.05-4.0); Thyroid Stimulating Hormone 1.37 uIU/mL (0.32-4.0)
[2022-03-22 11:13] LABS: Folate 10.3 ng/mL (> or = 4.0); Vitamin B12 441 pg/mL (200-900)
== END ==
LOC: HO.CARD 09:16
PROVIDERS: PCP Internal Medicine; Visit Provider Internal Medicine
DX: Z12.5 Encounter for screening for malignant neoplasm of prostate (principal); I50.20 Unspecified systolic (congestive) heart failure; I48.0 Paroxysmal atrial fibrillation; E78.00 Pure hypercholesterolemia, unspecified
CPT/HCPCS: 36415; 80053; 80061; 82607; 82728; 82746; 83540; 83880; 84153; 84439; 84443; 85025; 85045; 93306

== ENCOUNTER → 2022-07-12 12:59 | Outpatient (BNVA) | payer OTHER, SELFPAY | PROVIDERS: PCP Internal Medicine; Referring Provider Internal Medicine; Visit Provider Internal Medicine | DX: I11.0 Hypertensive heart disease with heart failure (principal); I50.22 Chronic systolic (congestive) heart failure; I48.0 Paroxysmal atrial fibrillation; E11.8 Type 2 diabetes mellitus with unspecified complications | CPT/HCPCS: 93005 ==

== ENCOUNTER 2023-05-01 14:17 | Outpatient (AMB) | payer OTHER, SELFPAY ==
[2023-05-01 14:20] VITALS: BP 160/102; PULSE 76; O2SAT 100; BMI 33.4
--- NOTE | 2023-05-01 14:20 | MHC.PC.OV ---
Vital Signs 05/01/23 14:20 Height 6 ft Weight 246 lb 2 oz BMI 33.4 BP 160/102 H Blood Pressure Location Rt brachial Position Sitting Pulse 76 Pulse Source Pulse Oximeter Pulse Oximetry (%) 100 Oxygen Delivery Method Room Air Intake Visit Reasons: AFIB, renal insuf Allergies No Known Allergies Allergy (Verified 05/01/23 14:24) Medication List - Last Reconciled 05/01/23 by Ernesto Turner MD alcohol swabs (Alcohol Prep Pads) 1 pad topical TID apixaban (Eliquis) 5 mg PO BID 90 days blood sugar diagnostic (FreeStyle Lite Strips) Check blood sugars three times daily before meals blood-glucose meter (FreeStyle Lite Meter kit) Check blood sugar three times daily before meals furosemide (Lasix) 40 mg PO DAILY lancets (FreeStyle Lancets) As directed lisinopril 10 mg PO DAILY metformin 500 mg PO DAILY 90 days metoprolol succinate ER 50 mg PO DAILY 90 days zinc 50 mg PO DAILY Tobacco use date assessed: 05/01/23 HPI AFIB, renal insuf HPI Details 67-year-old obese male with controlled diabetes mellitus congestive heart failure with reduced left ventricular function paroxysmal atrial fibrillation hypertension hypercholesterolemia calming in for follow-up last seen in March 2022. Patient follows up with Cardiology patient underwent cardioversion in 2020 discharge on amiodarone and Eliquis. Entresto requested but unable to afford. With the cardioversion patient had the amiodarone stop. Continue anticoagulation with Eliquis. Patient was advised Cardiolite stress test this was in June 2022 [facility] Medical History (Updated 05/01/23 @ 14:55 by Ernesto Turner MD) Paroxysmal atrial fibrillation Congestive heart failure with reduced left ventricular function, NYHA class 3 Gallbladder polyp Gonorrhea Hypercholesterolemia Vitamin D deficiency Type 2 diabetes mellitus with hyperglycemia Erectile dysfunction Obesity (BMI 30-39.9) Surgical History History of tonsillectomy Family History Mother Pacemaker Heart disease Father Colon cancer Social History Household Members: None Housing: House Do you presently have visiting nurse or other home services: No Alcohol intake: never Patient Tobacco Use Status: Never used Tobacco e-Cigarette/Vaping Use: Never Used Second Hand Smoke Exposure: No Advance Directives Date on File: 11/02/20 service: No Current occupational status: employed Current occupational exposures/hazards: No Cognitive needs: No Hearing needs: No Vision needs: No Questionnaire PHQ-9 Over the last 2 weeks, how often have you been bothered by any of the following problems? 1. Little interest or pleasure in doing things: not at all 2. Feeling down, depressed, or hopeless: not at all 3. Trouble falling or staying asleep, or sleeping too much: not at all 4. Feeling tired or having little energy: not at all 5. Poor appetite or overeating: not at all 6. Feeling bad about yourself - or that you are a failure or have let yourself or your family down: not at all 7. Trouble concentrating on things, such as reading the newspaper or watching television: not at all 8. Moving or speaking so slowly that other people could have noticed. Or the opposite - being so fidgety or restless that you have been moving around a lot more than usual: not at all 9. Thoughts that you would be better off or of hurting yourself in some way: not at all Total score: 0 Depression Screening Interpretation: Negative Depression Screening Done: Yes Source: Developed by Drs. Vishnu Crocker, Alessandra Hill, Kaushik Maurice and colleagues, with an educational vikash from [employer]. Thrive Questionnaire Date Thrive assessed: 05/01/23 I am a: Patient What is your living situation today?: I have a steady place to live Within the past 12 months, did the food you bought not last and you didn't have the money to get more?: Never true Within the past 12 months, did you worry whether your food would run out before you got money to buy more?: Never true Do you have trouble paying for medicines?: No Do you have trouble getting transportation to medical appointments?: No Do you have trouble paying your heating and electricity bill?: No Do you have trouble taking care of your child, family member or friend?: No Do you have trouble with day-to-day activities such as bathing, preparing meals, shopping, managing finances, etc.?: No Are you currently unemployed and looking for a job?: No Are you interested in more education?: No AUDIT C Alcohol Use Questionnaire (AUDIT-C) 1. How often do you have a drink containing alcohol?: Never 3. How often do you have six or more drinks on one occasion?: Never Total Score: 0 SANJAY-7 AMB Questionnaire SANJAY-7 Date SANJAY - 7 assessed: 05/01/23 Feeling nervous, anxious, or on edge: 0 = Not at all Not being able to stop or control worryin = Not at all Worrying too much about different things: 0 = Not at all Trouble relaxin = Not at all Being so restless that it is hard to sit still: 0 = Not at all Becoming easily annoyed or irritable: 0 = Not at all Feeling afraid as if something awful might happen: 0 = Not at all Total SANJAY-7 score (0-4 normal; 5-9 mild; 10-14 moderate; 15-21 severe): 0 Source: Developed by Drs. Vishnu Crocker, Alessandra Hill, Kaushik Maurice and colleagues, with an educational vikash from [employer]. Physical exam (Primary Care) Vital Signs: Last Vital Signs Pulse 76 05/01/23 14:20 BP 160/102 H 05/01/23 14:20 Pulse Ox 100 05/01/23 14:20 Oxygen Delivery Method Room Air 05/01/23 14:20 BMI result Body Mass Index 33.4 Tobacco/Smoking Status: Tobacco use Status Tobacco use date assessed 05/01/23 05/01/23 14:26 Patient Tobacco Use Status Never used Tobacco 05/01/23 14:26 e-Cigarette/Vaping Use Never Used 05/01/23 14:26 PHQ-9: PHQ-9 Score PHQ-9: Total score 0 05/01/23 17:21 Depression Screening Interpretation: Negative Thrive Assessment: Date of Thrive Assessment Date Thrive assessed 05/01/23 05/01/23 14:26 Const General: alert; No acute distress Eyes Conjunctivae: conjunctivae normal Resp Auscultation: clear to auscultation bilaterally Cardio Rate: regular rate Rhythm: regular rhythm GI Inspection: Yes normal to inspection Extrem General: Yes normal to inspection and No edema Results AMB Hemoglobin A1c AMB Hemoglobin A1c 7.0 % Last Edit by Rachelle Ernst MA on 05/01/23 14:29 Results Reviewed Results Reviewed: Laboratory Last Values Hgb A1c (Clinic) 7.0 % (4.0-6.0) H 05/01/23 14:26 Assessment and Plan Assessment & Plan (1) Obesity (BMI 30-39.9): Code(s): E66.9 - Obesity, unspecified Plan: Diet and exercise (2) Type 2 diabetes mellitus with hyperglycemia: Code(s): E11.65 - Type 2 diabetes mellitus with hyperglycemia Qualifiers: Diabetes mellitus watermaster insulin use: without detention use Qualified Code(s): E11.65 - Type 2 diabetes mellitus with hyperglycemia Plan: Decrease the amount of carbohydrate intake, pasta, bread, rice and potatoes are all sugar and that is aside from all the sweet stuff, remember that fruits are good but they are Sweet also. Hemoglobin A1c goal of less than 7.0. Patient is on metformin 500 mg once a day (3) Hypercholesterolemia: Code(s): E78.00 - Pure hypercholesterolemia, unspecified Plan: Avoid fried foods, chicken skin, eggs, butter margarine, pastries and meat. Be it pork or beef they have a lot of cholesterol LDL goal of less than 70 patient is not on any medication (4) Congestive heart failure with reduced left ventricular function, NYHA class 3: Code(s): I50.20 - Unspecified systolic (congestive) heart failure Plan: Weigh daily continue with metoprolol 50 mg once a and Lasix 40 mg once a day (5) Paroxysmal atrial fibrillation: Code(s): I48.0 - Paroxysmal atrial fibrillation Plan: Continue with anticoagulation with Eliquis (6) Essential hypertension: Code(s): I10 - Essential (primary) hypertension Plan: Continue with blood pressure medication. Decrease salt intake and exercise continue with metoprolol 50 mg once a day and lisinopril 10 mg once a day patient needs blood work (7) Constipation: Code(s): K59.00 - Constipation, unspecified (8) Insomnia: Comment: work related Code(s): G47.00 - Insomnia, unspecified (9) Erectile dysfunction: Code(s): N52.9 - Male erectile dysfunction, unspecified (10) Colonoscopy refused: Code(s): Z53.20 - Procedure and treatment not carried out because of patient's decision for unspecified reasons Orders: Orders Comprehensive Met. Panel Today E11.65 - Type 2 diabetes mellitus with hyperglycemia Thyroid Stimulating Hormone Today E11.65 - Type 2 diabetes mellitus with hyperglycemia Lipid Panel Today E11.65 - Type 2 diabetes mellitus with hyperglycemia, E78.00 - Pure hypercholesterolemia, unspecified Microalbumin, Random (w Creat) Today E11.65 - Type 2 diabetes mellitus with hyperglycemia Creatinine Urine Today E11.65 - Type 2 diabetes mellitus with hyperglycemia Prostate Specific Antigen Scr Today E11.65 - Type 2 diabetes mellitus with hyperglycemia AMB Hemoglobin A1c Today E11.65 - Type 2 diabetes mellitus with hyperglycemia Complete Blood Count Auto Diff Today E11.65 - Type 2 diabetes mellitus with hyperglycemia Free T4 (Free Thyroxine) Today E11.65 - Type 2 diabetes mellitus with hyperglycemia Vitamin B12 and Folate Today E11.65 - Type 2 diabetes mellitus with hyperglycemia Coding Level of Care Code Est Pt Level 4 (28484) Diagnoses Obesity (BMI 30-39.9) E66.9 Type 2 diabetes mellitus with hyperglycemia, without long-term current use of insulin E11.65 Diabetes mellitus detention insulin use: without watermaster use Hypercholesterolemia E78.00 Congestive heart failure with reduced left ventricular function, NYHA class 3 I50.20 Paroxysmal atrial fibrillation I48.0 Essential hypertension I10 Constipation K59.00 Insomnia G47.00 Erectile dysfunction N52.9 Colonoscopy refused Z53.20
== END 2023-05-01 14:57 | disposition home or self-care (01) ==
PROVIDERS: PCP Internal Medicine; Visit Provider Internal Medicine
DX: I48.0 Paroxysmal atrial fibrillation (principal); E11.65 Type 2 diabetes mellitus with hyperglycemia; I50.20 Unspecified systolic (congestive) heart failure; I11.0 Hypertensive heart disease with heart failure
CPT/HCPCS: 83036; 99214

== ENCOUNTER 2024-04-28 13:22 | Outpatient (AMB) | payer OTHER, SELFPAY ==
--- NOTE | 2024-04-28 13:40 | MHC.PC.OV ---
Vital Signs 04/28/24 13:44 Height 6 ft Weight 223 lb 2 oz BMI 30.3 BP 142/90 H Blood Pressure Location Lt brachial Position Sitting Pulse 70 Pulse Source Pulse Oximeter Pulse Oximetry (%) 97 Oxygen Delivery Method Room Air Intake Visit Reasons: 4 month f/u Intake Note: Patient is here to follow up on DM, ED, HTN, PAfib. Vulcanizing Machine Operator Required: No Embedded Systems Engineer: Not Required per policy Accompanied by: Self / Same As Patient Allergies No Known Allergies Allergy (Verified 04/28/24 13:43) Medication List - Last Reconciled 04/28/24 by Ernesto Turner MD alcohol swabs (Alcohol Prep Pads) 1 pad topical TID apixaban (Eliquis) 5 mg PO BID 90 days blood sugar diagnostic (FreeStyle Lite Strips) Check blood sugars once a day blood-glucose meter (FreeStyle Lite Meter kit) Check blood sugar three times daily before meals furosemide (Lasix) 40 mg PO DAILY lancets (FreeStyle Lancets) As directed lisinopril 10 mg PO DAILY metformin 500 mg PO DAILY 90 days metoprolol succinate ER 50 mg PO DAILY 90 days zinc 50 mg PO DAILY Tobacco use date assessed: 04/28/24 Fall risk assessment: No Falls in past year Last assessed Fall Risk: 04/28/24 Dental Screening Dental Screen Date: 04/28/24 Did you have a dental visit in the last 12 months?: No Did you have a dental problem in the last 6 months where you did not have access to dental care?: No Was dental information given to patient?: Patient has dentist HPI 4 month f/u HPI Details 68-year-old obese male noted 23 lb weight loss. Diabetes mellitus uncontrolled hypercholesterolemia congestive heart failure with atrial fibrillation hypertension coming in for follow-up. Last seen in April 2023. . Patient has not been seen for a year as the patient has decided to do this. And since the medication was running out came here for follow-up. Discussed that the diabetes is not under control and that we use the ALICIA inhibitor for renal protection. Patient has declined any changes to present medication and declined any other workup. Has atrial fibrillation on anticoagulation and discussed about needing to have blood work done. [facility] Medical History (Updated 04/28/24 @ 14:22 by Ernesto Turner MD) Paroxysmal atrial fibrillation Congestive heart failure with reduced left ventricular function, NYHA class 3 Gallbladder polyp Gonorrhea Hypercholesterolemia Vitamin D deficiency Type 2 diabetes mellitus with hyperglycemia Erectile dysfunction Obesity (BMI 30-39.9) Surgical History History of tonsillectomy Family History Mother Pacemaker Heart disease Father Colon cancer Social History Household Members: None Housing: House Do you presently have visiting nurse or other home services: No Alcohol intake: never Patient Tobacco Use Status: Never used Tobacco e-Cigarette/Vaping Use: Never Used Second Hand Smoke Exposure: No Advance Directives Date on File: 11/02/20 service: No Current occupational status: employed Current occupational exposures/hazards: No Cognitive needs: No Hearing needs: No Vision needs: No Questionnaire PHQ-9 Over the last 2 weeks, how often have you been bothered by any of the following problems? 1. Little interest or pleasure in doing things: not at all 2. Feeling down, depressed, or hopeless: not at all 3. Trouble falling or staying asleep, or sleeping too much: not at all 4. Feeling tired or having little energy: not at all 5. Poor appetite or overeating: not at all 6. Feeling bad about yourself - or that you are a failure or have let yourself or your family down: not at all 7. Trouble concentrating on things, such as reading the newspaper or watching television: not at all 8. Moving or speaking so slowly that other people could have noticed. Or the opposite - being so fidgety or restless that you have been moving around a lot more than usual: not at all 9. Thoughts that you would be better off or of hurting yourself in some way: not at all Total score: 0 Depression Screening Interpretation: Negative Depression Screening Done: Yes Source: Developed by Drs. Vishnu Crocker, Alessandra Hill, Kaushik Maurice and colleagues, with an educational vikash from [employer]. Thrive Questionnaire Date Thrive assessed: 04/28/24 I am a: Patient What is your living situation today?: I have a steady place to live Within the past 12 months, did the food you bought not last and you didn't have the money to get more?: Never true Within the past 12 months, did you worry whether your food would run out before you got money to buy more?: Never true Do you have trouble paying for medicines?: No Do you have trouble getting transportation to medical appointments?: No Do you have trouble paying your heating and electricity bill?: No Do you have trouble taking care of your child, family member or friend?: No Do you have trouble with day-to-day activities such as bathing, preparing meals, shopping, managing finances, etc.?: No Are you currently unemployed and looking for a job?: No Are you interested in more education?: No Currently or been in a relationship where the following occur: No concerns reported THRIVE Score: 0 AUDIT C Alcohol Use Questionnaire (AUDIT-C) 1. How often do you have a drink containing alcohol?: Never Total Score: 0 SANJAY-7 AMB Questionnaire SANJAY-7 Date SNAJAY - 7 assessed: 04/28/24 Feeling nervous, anxious, or on edge: 0 = Not at all Not being able to stop or control worryin = Not at all Worrying too much about different things: 0 = Not at all Trouble relaxin = Not at all Being so restless that it is hard to sit still: 0 = Not at all Becoming easily annoyed or irritable: 0 = Not at all Feeling afraid as if something awful might happen: 0 = Not at all Total SANJAY-7 score (0-4 normal; 5-9 mild; 10-14 moderate; 15-21 severe): 0 Source: Developed by Drs. Vishnu Crocker, Alessandra Hill, Kaushik Maurice and colleagues, with an educational vikash from [employer]. Physical exam (Primary Care) Vital Signs: Last Vital Signs Pulse 70 04/28/24 13:44 BP 142/90 H 04/28/24 13:44 Pulse Ox 97 04/28/24 13:44 Oxygen Delivery Method Room Air 04/28/24 13:44 BMI result Body Mass Index 30.3 Tobacco/Smoking Status: Tobacco use Status Tobacco use date assessed 04/28/24 04/28/24 13:53 Patient Tobacco Use Status Never used Tobacco 04/28/24 13:41 e-Cigarette/Vaping Use Never Used 04/28/24 13:41 PHQ-9: PHQ-9 Score PHQ-9: Total score 0 04/28/24 13:54 Depression Screening Interpretation: Negative Thrive Assessment: Date of Thrive Assessment Date Thrive assessed 04/28/24 04/28/24 13:41 Currently or been in a relationship where the following occur: No concerns reported Const General: alert; No acute distress Eyes Conjunctivae: conjunctivae normal Resp Auscultation: clear to auscultation bilaterally Cardio Other: Irregular rate and rhythm GI Inspection: Yes normal to inspection Extrem General: Yes normal to inspection and No edema Office Procedures Flu Questionnaire Does the patient have a severe egg allergy?: No Does the patient have severe life threatening allergies?: No Does the patient have a fever or illness today?: No Has the patient ever had Guillain-[place] Syndrome?: No Has the patient ever had any past reaction to a flu shot?: No Results AMB Hemoglobin A1c AMB Hemoglobin A1c 7.6 % Last Edit by LOUIE Smith on 04/28/24 13:54 Immunizations Fluarix Triv [id number] (PF) 45 mcg (15 mcg x 3)/0.5 mL IM syringe Performing Provider: Ernesto Turner MD [place] Administered by: LOUIE Sears on 04/28/24 13:58 Dose Route Admin Location Dispensed Lot Number Expiration Date NDC Plant Electrical Engineer 0.5 mL IM Left Deltoid 0.5 mL [id number] 01/19/25 [id number] [facility] V[facility] Given Date VIS Provided VIS Publication Date 04/28/24 Single Vaccine 21 Eligibility Eligibility Date Funding Source Not VF Eligible 04/28/24 Private Results Reviewed Results Reviewed: Laboratory Last Values Hgb A1c (Clinic) 7.6 % (4.0-6.0) H 04/28/24 13:42 Coding Level of Care Code Est Pt Level 4 (67681) Complex EM visit Add On G2211 Diagnoses Type 2 diabetes mellitus with hyperglycemia, without long-term current use of insulin E11.65 Diabetes mellitus mcc insulin use: without mcc use Obesity (BMI 30-39.9) E66.9 Hypercholesterolemia E78.00 Paroxysmal atrial fibrillation I48.0 Congestive heart failure with reduced left ventricular function, NYHA class 3 I50.20 Essential hypertension I10 Insomnia G47.00 Constipation K59.00 Erectile dysfunction N52.9 Ascending aorta dilatation I77.810 Assessment & Plan Assessment & Plan (1) Type 2 diabetes mellitus with hyperglycemia: Code(s): E11.65 - Type 2 diabetes mellitus with hyperglycemia Category: Medical Qualifiers: Diabetes mellitus intermodal dispatcher insulin use: without intermodal dispatcher use Qualified Code(s): E11.65 - Type 2 diabetes mellitus with hyperglycemia Plan: Decrease the amount of carbohydrate intake, pasta, bread, rice and potatoes are all sugar and that is aside from all the sweet stuff, remember that fruits are good but they are Sweet also. Hemoglobin A1c goal of less than 7.0. Patient is on metformin 500 mg once a day (2) Obesity (BMI 30-39.9): Code(s): E66.9 - Obesity, unspecified Category: Medical Plan: Diet and exercise (3) Hypercholesterolemia: Code(s): E78.00 - Pure hypercholesterolemia, unspecified Category: Medical Plan: Avoid fried foods, chicken skin, eggs, butter margarine, pastries and meat. Be it pork or beef they have a lot of cholesterol LDL goal of less than 100 and triglyceride of less than 150 patient will need blood work (4) Paroxysmal atrial fibrillation: Code(s): I48.0 - Paroxysmal atrial fibrillation Category: Medical Plan: Patient is on anticoagulation with apixaban and metoprolol 50 mg once a day (5) Congestive heart failure with reduced left ventricular function, NYHA class 3: Code(s): I50.20 - Unspecified systolic (congestive) heart failure Category: Medical Plan: Blood work requested, weigh daily. Advised to follow up with Cardiology continue with the diuretic (6) Essential hypertension: Code(s): I10 - Essential (primary) hypertension Category: Medical Plan: Continue with blood pressure medication. Decrease salt intake and exercise on metoprolol 50 mg once a day lisinopril 10 mg once a day. admits have not taken lisinopril (7) Insomnia: Comment: work related Code(s): G47.00 - Insomnia, unspecified Category: Medical Plan: declined med (8) Constipation: Code(s): K59.00 - Constipation, unspecified Category: Medical Plan: Three rules for constipation 1. Diet need to have a high fiber diet less of meat 2. Increase oral fluids 3. Exercise (9) Erectile dysfunction: Code(s): N52.9 - Male erectile dysfunction, unspecified Category: Medical Plan: decline med but discussed the problem of diabetes (10) Ascending aorta dilatation: Comment: 2021 4 cm Code(s): I77.810 - Thoracic aortic ectasia Category: Medical Plan: Patient was offered an echocardiogram but declined discussed about controlling blood pressure diabetes and cholesterol Orders: Orders AMB Hemoglobin A1c Today E11.65 - Type 2 diabetes mellitus with hyperglycemia Influenza [id number] Immunization Today Z23 - Encounter for immunization Medications: Changed From blood sugar diagnostic (FreeStyle Lite Strips) Check blood sugars three times daily before meals 3 boxes 3RF E11.65 - Type 2 diabetes mellitus with hyperglycemia To blood sugar diagnostic (FreeStyle Lite Strips) Check blood sugars once a day 100 ea 3RF E11.65 - Type 2 diabetes mellitus with hyperglycemia Refilled lisinopril OVERDUE FOR APPT. PLEASE CALL [phone] TO SCHEDULE AN APPT SO WE CAN REFILL THIS MED. 10 mg PO DAILY 90 tabs 2RF metoprolol succinate ER 50 mg PO DAILY 90 days 90 tabs 2RF
[2024-04-28 13:44] VITALS: BP 142/90; PULSE 70; O2SAT 97; BMI 30.3
== END 2024-04-28 14:34 | disposition home or self-care (01) ==
PROVIDERS: PCP Internal Medicine; Visit Provider Internal Medicine
DX: E11.65 Type 2 diabetes mellitus with hyperglycemia (principal); I48.0 Paroxysmal atrial fibrillation; I50.20 Unspecified systolic (congestive) heart failure; I77.810 Thoracic aortic ectasia; Z68.30 Body mass index [BMI] 30.0-30.9, adult; E66.811 Obesity, class 1; E78.00 Pure hypercholesterolemia, unspecified; I10 Essential (primary) hypertension; G47.00 Insomnia, unspecified; K59.00 Constipation, unspecified; N52.9 Male erectile dysfunction, unspecified; Z23 Encounter for immunization

== ENCOUNTER → 2024-04-28 13:22 | Outpatient (BNVA) | payer OTHER, SELFPAY | PROVIDERS: PCP Internal Medicine; Visit Provider Internal Medicine | DX: E11.65 Type 2 diabetes mellitus with hyperglycemia (principal); E78.00 Pure hypercholesterolemia, unspecified; I48.0 Paroxysmal atrial fibrillation; I11.0 Hypertensive heart disease with heart failure; I50.20 Unspecified systolic (congestive) heart failure; E66.9 Obesity, unspecified; G47.00 Insomnia, unspecified; K59.00 Constipation, unspecified; N52.9 Male erectile dysfunction, unspecified; I77.810 Thoracic aortic ectasia; Z79.01 Long term (current) use of anticoagulants; Z79.84 Long term (current) use of oral hypoglycemic drugs; Z79.899 Other long term (current) drug therapy; Z23 Encounter for immunization | CPT/HCPCS: 83036; 90471; 90656; 96127 ==

== ENCOUNTER 2024-12-22 11:00 | Emergency (ER) | payer OTHER, SELFPAY ==
[2024-12-22] VITALS (7 sets, daily range): BP systolic 104–208; BP diastolic 44–116; PULSE 89–130; RESP 18–25; TEMP 36.5–36.8; O2SAT 96–99; BMI 31.4
--- NOTE | ~2024-12-22 | CT_ITS ---
EXAMINATION: CT HEAD WITHOUT CONTRAST CLINICAL INFORMATION: Altered mental status, anticoagulated. COMPARISON: None available. TECHNIQUE: Contiguous axial imaging was performed from the skull base to vertex without intravenous administration of contrast. This CT examination was performed using dose optimization techniques as appropriate, variously including the following: *Automated exposure control *Adjustment of mA and/or kV according to patient size (this includes techniques or standardized protocols for targeted exams where dose is matched to indication/reason for exam; i.e. extremities or head) *Use of iterative reconstruction technique FINDINGS: There is no evidence of intracranial hemorrhage or extra-axial fluid collection. There is no mass effect, or edema. No CT evidence of acute territorial infarct. Ventricles, sulci, and cisterns are normal in size and configuration for patient age. No hydrocephalus. No midline shift. Negative hyperdense MCA sign. Negative insular ribbon sign. Patchy periventricular and deep white matter hypoattenuation is consistent with mild to moderate small vessel ischemic changes. Normal pituitary. Old lacunar type infarcts right cerebellum, and anterior right gangliocapsular region. Mild atheromatous calcification of the bilateral carotid siphons and V4 segments vertebral arteries bilaterally. Globes and orbital contents image normally. No extracranial soft tissue abnormalities. The paranasal sinuses, mastoid air cells, and tympanic cavities are normally aerated. No suspicious bony abnormalities. There are no acute fractures evident. CT/CT head/brain wo IV con IMPRESSION: 1. No acute intracranial abnormality. 2. Chronic changes as discussed. Electronically signed by: Gavin Bailey MD 12/22/2024 02:21 PM EDT
--- NOTE | ~2024-12-22 | CT_ITS ---
EXAMINATION: CT CERVICAL SPINE WITHOUT CONTRAST CLINICAL INFORMATION: Weakness COMPARISON: None available. TECHNIQUE: Axial CT imaging was performed from skull base through mid T2. Coronal and sagittal reformatted images were generated from the original axial data set. ALARA: The examination used one or more of the following radiation dose reduction techniques: Automated exposure control, iterative reconstruction, and/or adjustment of mA and/or KV. FINDINGS: Cervico-occipital junction is unremarkable. Marginal osteophytes are evident at the atlantodental junction. There is mild to moderate reversal of cervical lordosis. C2-3: There is mild disc space narrowing and mild to moderate facet joint space narrowing and osteophyte. C3-4: There is mild disc space narrowing and moderate to severe facet joint space narrowing with osteophytes. C4-5: There is grade 1 anterolisthesis and moderate facet arthropathy with osteophytes more advanced on the left side and severe joint space narrowing. There is also left foraminal narrowing that is moderate to severe. C5-6 there is moderate to severe disc space and endplate irregularity with vacuum phenomena in the disc space and posterior C5 vertebral body. There endplate osteophytes to the spinal canal with broad-based disc bulge. There is moderate facet degeneration with marginal osteophytes resulting in moderate to severe foraminal narrowing, greater on the left. There is moderate spinal stenosis. C6-7: There is severe disc space narrowing with vacuum phenomena in the disc space and inferior C6 vertebral body. There is facet arthropathy with marginal osteophytes and joint space narrowing, greater on the left with associated moderate to severe foraminal narrowing. There is moderate to severe spinal stenosis. C7-T1: There is severe disc space narrowing with endplate irregularity and posterior disc osteophyte complex. There is moderate facet joint space narrowing and small osteophytes. There is [id number] right and severe left foraminal narrowing. There is moderate atherosclerotic calcification in the carotid bulbs and brachiocephalic artery origin. CT/CT cervical spine wo IV con IMPRESSION: No acute fracture. Examination is moderately degraded by motion artifact. Subtle fractures could be obscured. Multifocal degenerative disc disease and facet osteoarthritis with focal spinal stenosis and foraminal narrowing which would be optimally characterized by MRI. Fleischner guidelines were followed. Electronically signed by: Lincoln Farrell MD 12/22/2024 02:29 PM EDT RP
--- NOTE | ~2024-12-22 | XR_ITS ---
EXAMINATION: XR CHEST CLINICAL INFORMATION: sob COMPARISON: No prior available. TECHNIQUE: Frontal view of the chest was obtained. FINDINGS: The cardiac, hilar, and mediastinal contours are normal. The lungs are clear bilaterally. No pneumothorax or effusion. No focal osseous or soft tissue abnormality. XR/XR chest 1V IMPRESSION: No active pulmonary disease. Electronically signed by: Gavin Bailey MD 12/22/2024 11:57 AM EDT
--- NOTE | ~2024-12-22 | CT_ITS ---
EXAMINATION: CT CHEST ANGIOGRAPHY WITH IV CONTRAST, CT ABDOMEN PELVIS WITH IV CONTRAST HISTORY: sob COMPARISON: Correlation is made with a CT of the abdomen and pelvis dated 08/31/2013 TECHNIQUE: Helical CT scan of the chest was performed following administration of intravenous contrast. The contrast bolus was timed to optimally opacify the pulmonary arteries. Thin sections were obtained through the pulmonary arteries. Subsequently, images were obtained from the lung bases through the proximal thighs. Coronal and sagittal reformatted images were generated. 3D/MIP reconstructed images are also obtained and reviewed. This CT exam was performed with one or more of the following dose reduction techniques: automated exposure control, adjustment of the mA and/or kV according to patient size, use of iterative reconstruction technique. DLP: 1238 mGy-cm CHEST: THYROID: The thyroid gland is unremarkable. PULMONARY ARTERIES: No intraluminal filling defects are identified within the pulmonary arteries to suggest pulmonary emboli. LUNGS: There is airspace opacity in the right upper lobe, consistent with pneumonia. There is a tiny 2 mm nodule in the left upper lobe (series 10, image 49). MEDIASTINUM: There is a 1.8 cm right paratracheal lymph node. AYDEN: There is no hilar lymphadenopathy. CARDIOVASCULATURE: The heart is enlarged. There is no pericardial effusion. The thoracic aorta is normal in caliber. DEGREE OF CORONARY CALCIFICATION: severe PLEURA: There is no pleural effusion. No pneumothorax. MAIN AIRWAYS: The mainstem bronchi and proximal branches are patent. AXILLA: There is no axillary lymphadenopathy. ABDOMEN/PELVIS: LIVER: The liver is normal in size and contour. No liver mass is identified. The hepatic and portal veins are patent. GALL BLADDER / BILE DUCTS: The gallbladder is unremarkable. There is no intra or extrahepatic biliary ductal dilatation. SPLEEN: The spleen is normal in size. No focal splenic lesion is identified. 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 PANCREAS: The pancreas is unremarkable in appearance. ADRENAL GLANDS: Within normal limits. KIDNEYS/RETROPERITONEUM: No renal calculi are identified. There is no hydronephrosis. No renal masses are identified. LYMPH NODES: No abdominal or pelvic lymphadenopathy. VASCULATURE: The abdominal aorta demonstrates atherosclerotic calcification, but is normal in caliber. MESENTERY/PERITONEUM: No free air or free fluid. No masses. STOMACH: There is a small hiatal hernia. The remainder of the stomach is collapsed. SMALL BOWEL: The small bowel is normal in caliber. COLON: The colon is unremarkable. APPENDIX: Normal. URINARY BLADDER/PELVIC ORGANS: The urinary bladder is unremarkable. The prostate is normal in size. BONES / SOFT TISSUES: No suspicious bony or soft tissue abnormalities. CT/CT angio chest PE protocol IMPRESSION: 1. No evidence of pulmonary emboli. 2. Right upper lobe pneumonia. Follow-up is recommended to document resolution. 3. 1.8 cm right paratracheal lymph node. 4. Small hiatal hernia. Electronically signed by: Vishnu Kaur MD 12/22/2024 02:22 PM EDT
--- NOTE | 2024-12-22 11:12 | ECG_ITS ---
Test Reason : unresponsive Blood Pressure : */* mmHG Vent. Rate : 125 BPM Atrial Rate : * BPM P-R Int : * ms QRS Dur : 120 ms QT Int : 300 ms P-R-T Axes : * -59 111 degrees QTcB Int : 433 ms Atrial fibrillation with rapid ventricular response Left anterior fascicular block Minimal voltage criteria for LVH, may be normal variant ( [place] product ) Cannot rule out Anterior infarct , age undetermined ST & T wave abnormality, consider lateral ischemia Abnormal ECG When compared with ECG of 05-Nov-2020 12:16, Atrial fibrillation has replaced Sinus rhythm Referred By: Kayleen Castle Electronically Signed By: KENAN WAGNER
[2024-12-22] MEDS: 0.9 % Sodium Chloride 1,000 ML 999 ML IV ×2 (11:18→12:07)
--- NOTE | 2024-12-22 11:19 | ED_ITS ---
HPI - CPR General Chief Complaint: Respiratory Arrest Stated Complaint: UNRESP IN CAR,NARCAN GIVEN/NO REACT,AGONAL Time Seen by Provider: 12/22/24 11:08 History of Present Illness HPI narrative: Patient is a 69-year-old male with a history of atrial fibrillation currently on Eliquis. Presented today after EMS was called to the scene. Bystanders noted patient was unresponsive in a car. Upon EMS arrival patient had agonal breathing not responding was given Narcan with no response. An Igel was placed. Patient was being bag. An EJ was placed. Patient was sent to [facility] for further evaluation on the way to the hospital patient became more awake alert he denies using any recreational drugs. He was responsive to simple questions to me. Awake alert. His monitor read is 100% on oxygen. He is in no respiratory distress. His lungs were clear he is clearly breathing spontaneously. We elected to take out Igel. Related Data Home Medications ?Medication ?Instructions ?Recorded ?Confirmed zinc 50 mg tablet 50 mg PO DAILY 11/22/20 04/28/24 Previous Rx's ?Medication ?Instructions ?Recorded alcohol swabs (Alcohol Prep Pads) 1 pad topical TID #200 ea 11/07/20 blood-glucose meter (FreeStyle #1 ea 11/07/20 Lite Meter kit) lancets 28 gauge (FreeStyle #100 ea 11/07/20 Lancets) apixaban 5 mg tablet (Eliquis) 5 mg PO BID 90 days #180 tabs 09/17/23 furosemide 40 mg tablet (Lasix) 40 mg PO DAILY #90 tabs 03/05/24 blood sugar diagnostic (FreeStyle #100 ea 04/28/24 Lite Strips) lisinopril 10 mg tablet 10 mg PO DAILY #90 tabs 04/28/24 metoprolol succinate 50 mg 50 mg PO DAILY 90 days #90 tabs 04/28/24 tablet,extended release 24 hr metformin 500 mg tablet 500 mg PO DAILY 90 days #90 tabs 09/24/24 doxycycline hyclate 100 mg capsule 100 mg PO BID cough 7 days #14 caps 12/22/24 Allergies Allergy/AdvReac Type Severity Reaction Status Date / Time No Known Allergies Allergy Verified 12/22/24 11:15 Review of Systems 2 Review of Systems: Positive episode of altered mental status [facility] Past Medical History Attestation statement: The following information was validated with the patient. Medical History Paroxysmal atrial fibrillation Congestive heart failure with reduced left ventricular function, NYHA class 3 Gallbladder polyp Gonorrhea Hypercholesterolemia Vitamin D deficiency Type 2 diabetes mellitus with hyperglycemia Erectile dysfunction Obesity (BMI 30-39.9) Surgical History History of tonsillectomy Family History Family History Mother Pacemaker Heart disease Father Colon cancer Social History Social History Household Members: None Housing: House Do you presently have visiting nurse or other home services: No Alcohol intake: never Patient Tobacco Use Status: Never used Tobacco e-Cigarette/Vaping Use: Never Used Second Hand Smoke Exposure: No Advance Directives: No Advance Directives Information Provided: Yes Advance Directives Date on File: 11/02/20 service: No Current occupational status: employed Current occupational exposures/hazards: No Cognitive needs: No Hearing needs: No Vision needs: No Physical Exam 2 Vital Signs: Vital Signs: Last Vital Signs Temp 97.9 F 12/22/24 15:33 Pulse 100 12/22/24 15:33 Resp 18 12/22/24 15:33 BP 168/116 H 12/22/24 15:33 Pulse Ox 99 12/22/24 15:33 O2 Del Method Room Air 12/22/24 15:33 BMI result Body Mass Index 31.4 Appearance: Initially intubated using a gel. Eyes: Pupils equal, round and reactive to light. ENT: Pharynx normal. Neck: Normal inspection. Neck supple. No lymph nodes noted. No crepitus CVS: Normal heart rate and rhythm. Pulses normal. Normal S1 and S2 Respiratory: No respiratory distress. Breath sounds normal. No Wheezing. No rales Abdomen: Soft and nontender. No rigidity. No distention. good BS x4 Skin: Skin warm and dry. Normal skin color. Normal skin turgor. Extremities: No lower extremity edema. Neurovascular intact to all extremities. No Lacerations. No Rash Neuro: Oriented X 3. No motor deficit. No sensory deficit. Moving all extermities. No slurred speech Medications Administered Discontinued Medications Generic Name Dose Route Start Last Admin Trade Name Eli PRN Reason Stop Dose Admin Diphenhydramine HCl 25 mg 12/22/24 12:35 12/22/24 12:54 Diphenhydramine Hcl 50 Mg/Ml Vial IVPUSH 12/22/24 12:36 25 mg ONCE ONE Administration Sodium Chloride 1,000 mls @ 999 mls/hr 12/22/24 11:15 12/22/24 11:18 Ns IV 12/22/24 12:15 999 mls/hr .Q1H1M RAMYA Administration Sodium Chloride 1,000 mls @ 999 mls/hr 12/22/24 12:00 12/22/24 12:07 Ns IV 12/22/24 13:00 999 mls/hr .Q1H1M RAMYA Administration Piperacillin Sod/Tazobactam 50 mls @ 100 mls/hr 12/22/24 11:59 12/22/24 12:07 Sod 3.375 gm/ Sodium Chloride IV 12/22/24 12:28 100 mls/hr ONCE ONE Administration Iohexol 100 ml 12/22/24 13:43 12/22/24 13:43 Iohexol 350 Mg/Ml 100 Ml Infus..Btl IV 12/22/24 13:44 85 ml ONCE ONE Administration Metoclopramide HCl 10 mg 12/22/24 12:35 12/22/24 12:54 Metoclopramide Hcl 10 Mg/2 Ml Vial IVPUSH 12/22/24 12:36 10 mg ONCE ONE Administration Ondansetron HCl 4 mg 12/22/24 11:50 12/22/24 12:07 Ondansetron Hcl 4 Mg/2 Ml Vial IVPUSH 12/22/24 11:51 4 mg ONCE ONE Administration Medical Decision Making Medical Decision Making MDM Narrative: Patient awake alert answering question responsive. We took him off the LMA. Patient is breathing spontaneously. Suction. Sugar was over 100 there is no evidence for hypoglycemia. Patient's Narcan was given 10 minutes prior to patient became awake. Difficult to believe that this is secondary to narcotic overdose. Patient denies using narcotics. He is 69 years old. He is has a history of AFib he was found in the car will get a CT scan of the head and C- spine. In addition a chest x-ray was ordered for possibility of pneumonia. A carbon monoxide level was drawn. An ABG was ordered. Blood was cultured. Patient's BP is elevated. Denies any alcohol use. Denies any chest pain. Is clearly very diaphoretic. My interpretation of his EKG shows an atrial fibrillation pattern heart rate is approximately 130 QRS is tight QTC showed no acute ST segment elevation. Patient became awake alert answering questions O2 sat maintained at greater than 95% on room air. I ordered a CT scan of the head C-spine CT of the chest abdomen pelvis. My interpretation of patient's CT head was grossly negative for bleed radiology's interpretation of the CT C-spine was negative for fracture no malalignment. CT scan of the chest abdomen pelvis shows signs of pneumonia on the right side. Antibiotics given. Explained to patient the need to stay in the hospital especially after he was found completely unresponsive almost needing intubation. Patient's states understanding. He understands that if he leaves there is a risk of there is a risk of irregular heartbeat there is a risk of infection. There is serious risk to his lifestyle. Patient is still left against medical advice did not want to stay. Explained to patient he could come back at any time. Were welcomed him. Nevertheless we did still prescribe him with antibiotics. Doxycycline was given. Patient's troponin is normal. My interpretation of patient's ABG showed a pH of 7.36 with a pCO2 of 39 PaO2 81 on room air. Grossly a fairly normal blood gas. Patient adamantly denies any recreational drug use. Explained to patient the need to stop if he is using. He almost today. Patient's alcohol was negative. Flu COVID RSV were all negative. Left against medical advice. Carbon monoxide level was also negative at 3. No evidence of CO. Differential Diagnosis Differential Diagnoses: The differential diagnosis associated with the presentation includes Syncope, narcotic overdose, alcohol, carbon monoxide poisoning, pneumonia Admission/Observation Consideration of admission/observation: Escalation of care including admission/observation considered Consult Healthcare Provider Management of the patient was discussed with: Hospitalist Lab Data [facility] Lab Attestation statement: I reviewed the patient's lab results. 12/22/24 11:08 12/22/24 11:08 Labs: Lab Results 12/22/24 12/22/24 12/22/24 Range/Units 11:04 11:08 11:37 WBC 11.7 H (4.8-10.8) X10*3/uL RBC 5.07 (4.60-5.80) X10*6/uL Hgb 15.4 (14.0-18.0) g/dl Hct 46.6 (42.0-52.0) % MCV 91.9 (80.0-98.0) fL MCH 30.4 (27.0-33.0) pg MCHC 33.0 (31.0-36.0) g/dl RDW 14.0 (11.0-16.0) % Plt Count 258 (160-400) X10*3/uL MPV 10.5 (9.4-12.4) fL Immature Gran % (Auto) 0.8 H (0.0-0.4) % Neut % (Auto) 57.5 (45-73) % Lymph % (Auto) 30.7 (20-40) % [place] % (Auto) 6.3 (2-11) % Eos % (Auto) 3.5 (0-4) % Baso % (Auto) 1.2 (0-2) % Lymph # (Auto) 3.6 (1.2-4.9) X10*3/uL [place] # (Auto) 0.7 (0.1-1.2) X10*3/uL Eos # (Auto) 0.4 (0.0-0.4) X10*3/uL Baso # (Auto) 0.1 (0.0-0.2) X10*3/uL Abs Immat Gran (auto) 0.09 H (0.00-0.03) X10*3/uL Absolute Neuts (auto) 6.8 (2.0-8.3) x10*3/uL Absolute Nucleated RBC 0.000 (0.0-0.012) X10*3/uL Nucleated RBC % (auto) 0.0 (0.0-0.2) /100WBC Hold Purple Top SEE NOTE Hold Blue Top SEE NOTE O2 Saturation 96.0 % ABG pH at Pt Temp 7.36 (7.35-7.45) ABG pCO2 at Pt Temp 39 (32-45) mmHg ABG pO2 at Pt Temp 81 L (83-108) mmHg ABG HCO3 22 (22-26) mmol/L ABG Base Excess (Actual) -2.8 mmol/L Carboxyhemoglobin % % Sodium 139 (135-145) mmol/L Potassium 4.9 (3.3-5.1) mmol/L Chloride 104 (96-108) mmol/L Carbon Dioxide 22 (22-29) mmol/L Anion Gap 18 (12-20) BUN 38 H (9-16) mg/dL Creatinine 1.68 H (0.5-1.4) mg/dL Estim Creat Clear Calc 51.9 Estimated GFR 41 POC Glucose 257 H (60-115) mg/dL Random Glucose 321 H (60-115) mg/dL Lactic Acid 3.2 H* (0.5-2.0) mmol/L Lactic Acid F/U @ 2Hr (0.5-2.0) mmol/L Calcium 9.3 (8.4-10.2) mg/dL Troponin I High Sens 31.3 (<3.5-35.0) ng/L Lipase 147 H (8-78) U/L Ethyl Alcohol < 10 mg/dL Influenza Type A (PCR) (Negative) Influenza Type B (PCR) (Negative) RSV RNA Qual (PCR) (Negative) SARS-CoV-2 RNA (RT-PCR) (Negative) 12/22/24 12/22/24 12/22/24 Range/Units 12:05 13:03 14:15 WBC (4.8-10.8) X10*3/uL RBC (4.60-5.80) X10*6/uL Hgb (14.0-18.0) g/dl Hct (42.0-52.0) % MCV (80.0-98.0) fL MCH (27.0-33.0) pg MCHC (31.0-36.0) g/dl RDW (11.0-16.0) % Plt Count (160-400) X10*3/uL MPV (9.4-12.4) fL Immature Gran % (Auto) (0.0-0.4) % Neut % (Auto) (45-73) % Lymph % (Auto) (20-40) % [place] % (Auto) (2-11) % Eos % (Auto) (0-4) % Baso % (Auto) (0-2) % Lymph # (Auto) (1.2-4.9) X10*3/uL [place] # (Auto) (0.1-1.2) X10*3/uL Eos # (Auto) (0.0-0.4) X10*3/uL Baso # (Auto) (0.0-0.2) X10*3/uL Abs Immat Gran (auto) (0.00-0.03) X10*3/uL Absolute Neuts (auto) (2.0-8.3) x10*3/uL Absolute Nucleated RBC (0.0-0.012) X10*3/uL Nucleated RBC % (auto) (0.0-0.2) /100WBC Hold Purple Top Hold Blue Top O2 Saturation % ABG pH at Pt Temp (7.35-7.45) ABG pCO2 at Pt Temp (32-45) mmHg ABG pO2 at Pt Temp (83-108) mmHg ABG HCO3 (22-26) mmol/L ABG Base Excess (Actual) mmol/L Carboxyhemoglobin % 3.2 % Sodium (135-145) mmol/L Potassium (3.3-5.1) mmol/L Chloride (96-108) mmol/L Carbon Dioxide (22-29) mmol/L Anion Gap (12-20) BUN (9-16) mg/dL Creatinine (0.5-1.4) mg/dL Estim Creat Clear Calc Estimated GFR POC Glucose (60-115) mg/dL Random Glucose (60-115) mg/dL Lactic Acid (0.5-2.0) mmol/L Lactic Acid F/U @ 2Hr 1.6 (0.5-2.0) mmol/L Calcium (8.4-10.2) mg/dL Troponin I High Sens (<3.5-35.0) ng/L Lipase (8-78) U/L Ethyl Alcohol mg/dL Influenza Type A (PCR) NEGATIVE (Negative) Influenza Type B (PCR) NEGATIVE (Negative) RSV RNA Qual (PCR) NEGATIVE (Negative) SARS-CoV-2 RNA (RT-PCR) NEGATIVE (Negative) Independent Interpretation I performed an independent interpretation of an: EKG (AFib heart rate of 130 QRS is tight there is no acute ST segment elevation) and CT Scan (CT scan of the head was grossly negative for any evidence of bleeding no fracture) Radiology Impression Discussion of test interpretation with radiology: I have reviewed the radiologist's reading. Independent Historian Clinical information obtained from an independent historian. History obtained from or confirmed by: EMS External Record Review External record reviewed: Inpatient record and Office record Chronic Conditions Patient?s care impacted by: Diabetes and Hypertension Social Determinants Patient?s care significantly limited by Social Determinants of Health including: Alcoholism and drug addiction in family and Problems related to primary support group Critical Care Time Critical Care Time Critical Care Time: Yes Total Critical Care Time: 80 Attestation: I have personally provided 80 minutes of critical care time exclusive of time spent on separately billable procedures. ?Time includes review of lab data, radiology results, discussion with consultants, and monitoring for potential decompensation. ?Interventions were performed as documented above Discharge Plan Discharge Clinical Impression: Pneumonia, Respiratory failure, Syncope, Polysubstance abuse, Left against medical advice Patient Disposition: Left Against Medical Advice Instructions: Syncope (DC), Polysubstance Use Disorder (ED), Against Medical Advice (ED), Acute Respiratory Failure (ED) Additional Instructions: If you change your mind please come back immediately Prescriptions: New doxycycline hyclate 100 mg capsule 100 mg PO BID 7 Days Qty: 14 0RF No Action Eliquis 5 mg tablet 5 mg PO BID 90 Days Qty: 180 2RF furosemide [Lasix] 40 mg tablet 40 mg PO DAILY Qty: 90 3RF metformin 500 mg tablet 500 mg PO DAILY 90 Days Qty: 90 2RF (DME) blood-glucose meter [FreeStyle Lite Meter] Kit See Rx Instructions .ROUTE .MEDSUPPLY Qty: 1 0RF Rx Instructions: Check blood sugar three times daily before meals alcohol swabs [Alcohol Prep Pads] Pads, Medicated 1 pad topical TID Qty: 200 0RF (DME) lancets [FreeStyle Lancets] 28 gauge misc See Rx Instructions .ROUTE .MEDSUPPLY Qty: 100 0RF Rx Instructions: As directed zinc 50 mg tablet 50 mg PO DAILY lisinopril 10 mg tablet 10 mg PO DAILY Qty: 90 2RF Rx Instructions: OVERDUE FOR APPT. PLEASE CALL [phone] TO SCHEDULE AN APPT SO WE CAN REFILL THIS MED. metoprolol succinate 50 mg tablet extended release 24 hr 50 mg PO DAILY 90 Days Qty: 90 2RF (DME) FreeStyle Lite Strips Strip See Rx Instructions .ROUTE .MEDSUPPLY Qty: 100 3RF Rx Instructions: Check blood sugars once a day Referrals: Ernesto Turner MD [Primary Care Provider] - 12/23/24 Stand Alone Forms: Against Medical Advice Print Language: Congolese
[2024-12-22 11:23] LABS: MANUAL DIFF FLAG NO
[2024-12-22 11:29] LABS: Basophils Absolute Auto 0.1 X10*3/uL (0.0-0.2); Basophils Percent Auto 1.2 % (0-2); Eosinophils Absolute Auto 0.4 X10*3/uL (0.0-0.4); Eosinophils Percent Auto 3.5 % (0-4); Hematocrit 46.6 % (42.0-52.0); Hemoglobin 15.4 g/dl (14.0-18.0); Imm Gran Abs Auto 0.09 X10*3/uL (0.00-0.03); Imm Gran Pct Auto 0.8 % (0.0-0.4); Lymphocytes Absolute Auto 3.6 X10*3/uL (1.2-4.9); Lymphocytes Percent Auto 30.7 % (20-40); Mean Corpuscular Hemoglobin 30.4 pg (27.0-33.0); Mean Corpuscular Volume 91.9 fL (80.0-98.0); Mean Platelet Volume 10.5 fL (9.4-12.4); Monocytes Absolute Auto 0.7 X10*3/uL (0.1-1.2); Monocytes Percent Auto 6.3 % (2-11); Neutrophils Absolute Auto 6.8 x10*3/uL (2.0-8.3); Neutrophils Percent Auto 57.5 % (45-73); Platelet Count 258 X10*3/uL (160-400); Red Blood Count 5.07 X10*6/uL (4.60-5.80); White Blood Count 11.7 X10*3/uL (4.8-10.8)
[2024-12-22 11:40] LABS: ABG Base Excess -2.8 mmol/L; ABG HCO3 22 mmol/L (22-26); ABG pCO2 39 mmHg (32-45); ABG pH 7.36 (7.35-7.45); ABG pO2 81 mmHg (83-108)
[2024-12-22 11:45] LABS: Ethanol < 10 mg/dL
[2024-12-22 11:46] LABS: Anion Gap 18 (12-20); Blood Urea Nitrogen 38 mg/dL (9-16); Calcium 9.3 mg/dL (8.4-10.2); Carbon Dioxide 22 mmol/L (22-29); Chloride 104 mmol/L (96-108); Creatinine Clr Calc Pharmacy 51.9; Estimated Glomerular Filt Rate 41; Glucose Random 321 mg/dL (60-115); Lipase 147 U/L (8-78); Potassium 4.9 mmol/L (3.3-5.1); Sodium 139 mmol/L (135-145)
[2024-12-22 11:50] LABS: Troponin-I High Sensitivity 31.3 ng/L (<3.5-35.0)
[2024-12-22 11:59] LABS: Lactic Acid 3.2 mmol/L (0.5-2.0)
[2024-12-22] MEDS: ondansetron HCL 4 MG/2 ML VIAL IVPUSH (12:07)
[2024-12-22] MEDS: Piperacillin Sodium/Tazobactam 3.375 GM in 0.9 % Sodium Chloride 50 ML IV (12:07)
[2024-12-22] MEDS: diphenhydrAMINE HCL 50 MG/ML VIAL 25 MG IVPUSH (12:54)
[2024-12-22] MEDS: Metoclopramide HCl 10 MG/2 ML VIAL IVPUSH (12:54)
[2024-12-22 12:57] LABS: Influenza A PCR NEGATIVE (Negative); Influenza B PCR NEGATIVE (Negative); Resp Syncy Virus RNA Qual PCR NEGATIVE (Negative); SARS COV2 PCR INHOUSE NEGATIVE (Negative)
[2024-12-22 13:09] LABS: Carbon Monoxide POC 3.2 %
[2024-12-22 13:16] LABS: Carbon Monoxide Refer to POC result
[2024-12-22 13:20] LABS: Reflex Lactate? Lactic Acid Added
[2024-12-22] MEDS: iohexoL 350 MG/ML 100 ML INFUS..BTL IV (13:43)
[2024-12-22 14:18] LABS: Glucose, Whole Blood 257 mg/dL (60-115)
[2024-12-22 14:42] LABS: ~Lactic Acid-LAB USE ONLY 1.6 mmol/L (0.5-2.0)
[2024-12-23 08:52] LABS: ABG Refer to POC result
== END 2024-12-22 16:58 | disposition left against medical advice (07) ==
PROVIDERS: Emergency Provider Emergency Medicine Emergency Medical Services; PCP Internal Medicine
DX: J18.9 Pneumonia, unspecified organism (principal); J96.90 Respiratory failure, unspecified, unspecified whether with hypoxia or hypercapnia; R55 Syncope and collapse; F19.10 Other psychoactive substance abuse, uncomplicated; I48.0 Paroxysmal atrial fibrillation; E11.9 Type 2 diabetes mellitus without complications; Z03.818 Encounter for observation for suspected exposure to other biological agents ruled out; Z53.29 Procedure and treatment not carried out because of patient's decision for other reasons; Z79.84 Long term (current) use of oral hypoglycemic drugs; Z79.899 Other long term (current) drug therapy
CPT/HCPCS: 0241U; 36415; 70450; 71045; 71275; 72125; 74177; 80048; 80307; 82375; 82803; 82947; 83605; 83690; 84484; 85025; 87040; 93005; 96374; 96375; 99284; J1200; J2405; J2543; J2765; Q9967

== ENCOUNTER → 2024-12-22 11:12 | Outpatient (BNV) | payer OTHER, SELFPAY | PROVIDERS: Emergency Provider Emergency Medicine Emergency Medical Services; PCP Internal Medicine; Visit Provider Internal Medicine | DX: I48.91 Unspecified atrial fibrillation (principal); I44.4 Left anterior fascicular block | CPT/HCPCS: 93010 ==

== ENCOUNTER → 2024-12-22 11:13 | Outpatient (BNV) | payer OTHER, SELFPAY | PROVIDERS: Emergency Provider Emergency Medicine Emergency Medical Services; PCP Internal Medicine; Visit Provider Radiology Diagnostic Radiology | DX: J18.1 Lobar pneumonia, unspecified organism (principal); K44.9 Diaphragmatic hernia without obstruction or gangrene; M51.369 Other intervertebral disc degeneration, lumbar region without mention of lumbar back pain or lower extremity pain; M48.061 Spinal stenosis, lumbar region without neurogenic claudication; M99.63 Osseous and subluxation stenosis of intervertebral foramina of lumbar region; M47.896 Other spondylosis, lumbar region; R41.82 Altered mental status, unspecified; R06.02 Shortness of breath | CPT/HCPCS: 70450; 71045; 71275; 72125; 74177 ==